=== PATIENT | female | born 1940 | race Caucasian/White ===

== ENCOUNTER 2017-02-23 15:58 | Emergency (ER) | payer OTHER, BC ==
[2017-02-23 16:05] VITALS: TEMP 97.7; BMI 20.7
[2017-02-23] MEDS ORDERED: SODIUM CHLORIDE 1,000 ML IV STA (16:36)
[2017-02-23] MEDS ORDERED: ACETAMINOPHEN 1000 MG/100 ML VIAL (NON FORMULARY) IVPB ONE (16:44)
--- NOTE | 2017-02-23 16:44 | PDOC ---
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 Today the patient was at rehab using a walker when she developed sudden generalized weakness and left sided chest pain. Her chest pain is constant, radiating to her upper back, and characterized as sharp. It is not affiliated with palpitations or shortness of breath. She endorses constant right sided headache without any visual changes, vertigo, nausea, or vomiting. The patient also reports measuring her blood pressure today at 196 systolic. Denies fevers, chills, nausea, vomiting, diarrhea, or complaints. <Fernanda Beckford - Last Filed: 02/23/17 18:33> - General History Source: Patient, Old Records Exam Limitations: No Limitations <Chandrakant Hopkins - Last Filed: 02/23/17 21:59> - General Chief Complaint: Lightheaded Stated Complaint: DIZZINESS/ LOW BP Time Seen by Provider: 02/23/17 16:08 Past History <Fernanda Beckford - Last Filed: 02/23/17 18:33> - Past Medical History CVA: Yes (brain aneurysm/ storke lt side weakness) HTN: Yes Hypercholesterolemia: Yes Thyroid Disease: Yes (hypo) - Surgical History Neurologic Surgery: Yes (aneurysm repair) - Immunization History Immunization Up to Date: Yes - Psycho/Social/Smoking Cessation Hx Anxiety: No Suicidal Ideation: No Smoking History: Never smoked Have you smoked in the past 12 months: No Information on smoking cessation initiated: No Hx Alcohol Use: No Drug/Substance Use Hx: No Substance Use Type: None Hx Substance Use Treatment: No <Chandrakant Hopkins - Last Filed: 02/23/17 21:59> - Past Medical History Allergies/Adverse Reactions: Allergies Allergy/AdvReac Type Severity Reaction Status Date / Time No Known Allergies Allergy Verified 02/23/17 15:59 Home Medications: Ambulatory Orders Levothyroxine [Synthroid -] 50 mcg PO DAILY 04/19/14 Amlodipine Besylate [Norvasc -] 7.5 mg PO DAILY 02/23/17 Cephalexin [Keflex] 500 mg PO BID #14 capsule 02/23/17 Labetalol HCl [Normodyne -] 100 mg PO TID 02/23/17 Levetiracetam [Keppra] 750 mg PO BID 02/23/17 Lisinopril [Prinivil] 20 mg PO DAILY 02/23/17 Sertraline HCl 50 mg PO DAILY 02/23/17 Review of Systems - Review of Systems Comments:: 02/23/17 17:14 GENERAL/CONSTITUTIONAL: Generalized weakness. No fever or chills. HEAD, EYES, EARS, NOSE AND THROAT: No change in vision. No ear pain or discharge. No sore throat. CARDIOVASCULAR: Chest pain. No shortness of breath. RESPIRATORY: No cough, wheezing, or hemoptysis. GASTROINTESTINAL: No nausea, vomiting, diarrhea or constipation. GENITOURINARY: No dysuria, frequency, or change in urination. MUSCULOSKELETAL: No joint or muscle swelling or pain. No neck or back pain. ENDOCRINE: No increased thirst. No abnormal weight change. SKIN: No rash NEUROLOGIC: Right sided headache. No vertigo, loss of consciousness, or change in strength/sensation. <Fernanda Beckford - Last Filed: 02/23/17 18:33> *Physical Exam - Vital Signs Last Vital Signs Temp Pulse Resp BP Pulse Ox 97.7 F 58 L 18 188/60 96 02/23/17 15:59 02/23/17 15:59 02/23/17 15:59 02/23/17 17:11 02/23/17 15:59 - Physical Exam Comments: 02/23/17 17:16 GENERAL: Awake, alert, and fully oriented, in no acute distress HEAD: No signs of trauma EYES: PERRLA, EOMI, sclera anicteric, conjunctiva clear ENT: Auricles normal inspection, hearing grossly normal, nares patent, oropharynx clear without exudates. Moist mucosa NECK: Normal ROM, supple, no lymphadenopathy, JVD, or masses LUNGS: Breath sounds equal, clear to auscultation bilaterally. No wheezes, and no crackles HEART: Regular rate and rhythm, normal S1 and S2, no murmurs, rubs or gallops ABDOMEN: Soft, nontender, normoactive bowel sounds. No guarding, no rebound. No masses EXTREMITIES: Left upper extremity and lower extremity contracture. No edema. No clubbing or cyanosis. No cords, erythema, or tenderness NEUROLOGICAL: Cranial nerves II through XII grossly intact. Normal speech, normal gait SKIN: Warm, Dry, normal turgor, no rashes or lesions noted. HEMATOLOGIC/LYMPHATIC: No anemia, easy bleeding, or history of blood clots. ALLERGIC/IMMUNOLOGIC: No hives or skin allergy. <Fernanda Beckford - Last Filed: 02/23/17 18:33> - Vital Signs Last Vital Signs Temp Pulse Resp BP Pulse Ox 97.7 F 58 L 18 195/85 96 02/23/17 15:59 02/23/17 15:59 02/23/17 15:59 02/23/17 15:59 02/23/17 15:59 <Chandrakant Hopkins - Last Filed: 02/23/17 21:59> Heart Score/ECG Review #1 ECG reviewed & interpreted by me at: 16:25 02/23/17 17:32 NSR 57, no std/claudio, normal axis, normal intervals, QTC 401 msec <Chandrakant Hopkins - Last Filed: 02/23/17 21:59> ED Treatment Course - LABORATORY CBC & Chemistry Diagram: 02/23/17 16:40 02/23/17 16:40 - RADIOLOGY Radiograph Interpretation: 02/23/17 17:19 Chest X-Ray Impression: No acute disease. Reported By: Manuelito Davis MD 02/23/17 18:[address] Impression: No evidence of acute intracranial pathology or significant change. Reported By: Manuelito Davis MD - Medications Given in the ED: ED Medications Discontinued Medications Generic Name Dose Route Start Last Admin Trade Name Talita PRN Reason Stop Dose Admin Acetaminophen 1,000 mg 02/23/17 16:44 02/23/17 17:11 Ofirmev Injection - IVPB 02/23/17 16:45 1,000 mg ONCE ONE Administration <Fernanda Beckford - Last Filed: 02/23/17 18:33> - LABORATORY CBC & Chemistry Diagram: 02/23/17 16:40 02/23/17 16:40 - RADIOLOGY Radiology Studies Ordered: Category Date Time Status HEAD CT WITHOUT CONTRAST [CT] Stat CT Scan 02/23/17 16:36 Ordered CHEST X-RAY PORTABLE* [RAD] Stat Radiology 02/23/17 16:36 Ordered <Chandrakant Hopkins - Last Filed: 02/23/17 21:59> Medical Decision Making - Medical Decision Making 02/23/17 16:40 A portion of this note was documented by scribe services under my direction. I have reviewed the details of the note, within reason, and agree with the documentation with the following case summary and management plan written by me. Patient treated in the ED. Nursing notes are reviewed and incorporated into the medical decision-making. Vital signs reviewed. Peripheral IV access obtained by the nurse, laboratory studies are drawn and sent, reviewed and interpreted by myself. Vital Signs Temp Pulse Resp BP Pulse Ox 97.7 F 58 L 18 195/85 96 02/23/17 15:59 02/23/17 15:59 02/23/17 15:59 02/23/17 15:59 02/23/17 15:59 76-year-old female with history of hypertension, hyperlipidemia, hypothyroidism , history of intracranial hemorrhage in August 2016 with residual left upper extremity and left lower extremity contracture presents with generalized weakness. The patient is at home but visits rehabilitation twice a week. Was well yesterday. Noted today that she developed a gradual reproducible left- sided chest pain. Denies shortness of breath. Denies exertional component. Pain occurred during rehab. Denies recent illnesses, fevers, chills, cough, vomiting , diarrhea. The patient reported that she felt her BP was low, but was high here. The patient is contractured with LUE with pain on palpation of left upper chest pain and movement of LUE. I suspect musculoskeletal. However, given pmh and risk factors, will obtain troponin, chest xray , head CT (for weakness), UA, labs and reassess. 02/23/17 21:44 CT head reviewed. No acute findings. CBC, BMP 02/23/17 16:40 02/23/17 16:40 CMP Sodium 136 mmol/L (136-145) 02/23/17 16:40 Potassium 4.2 mmol/L (3.5-5.1) 02/23/17 16:40 Chloride 97 mmol/L (98-107) L 02/23/17 16:40 Carbon Dioxide 28 mmol/L (21-32) 02/23/17 16:40 Anion Gap 11 (8-16) 02/23/17 16:40 BUN 18 mg/dL (7-18) D 02/23/17 16:40 Creatinine 0.7 mg/dL (0.55-1.02) 02/23/17 16:40 Creat Clearance w eGFR > 60 (>60) 02/23/17 16:40 Random Glucose 86 mg/dL (74-106) D 02/23/17 16:40 Calcium 9.3 mg/dL (8.5-10.1) 02/23/17 16:40 Total Bilirubin 0.8 mg/dL (0.2-1.0) 02/23/17 16:40 AST 15 U/L (15-37) D 02/23/17 16:40 ALT 20 U/L (12-78) D 02/23/17 16:40 Alkaline Phosphatase 65 U/L (45-117) D 02/23/17 16:40 Creatine Kinase 63 IU/L (26-192) 02/23/17 19:30 Troponin I < 0.02 ng/ml (0.00-0.05) 02/23/17 19:30 Total Protein 7.1 g/dl (6.4-8.2) 02/23/17 16:40 Albumin 4.3 g/dl (3.4-5.0) 02/23/17 16:40 Urine Test Results Urine Color Colorless 02/23/17 17:56 Urine Appearance Clear 02/23/17 17:56 Urine pH 7.0 (5.0-8.0) 02/23/17 17:56 Ur Specific [place] 1.010 (1.005-1.025) 02/23/17 17:56 Urine Protein Negative (NEGATIVE) 02/23/17 17:56 Urine Glucose (UA) Negative (NEGATIVE) 02/23/17 17:56 Urine Ketones Negative (NEGATIVE) 02/23/17 17:56 Urine Blood Negative (NEGATIVE) 02/23/17 17:56 Urine Nitrite Negative (NEGATIVE) 02/23/17 17:56 Urine Bilirubin Negative (NEGATIVE) 02/23/17 17:56 Ur Leukocyte Esterase 2+ (NEGATIVE) H 02/23/17 17:56 Urine RBC <1 /hpf (0-3) 02/23/17 17:56 Urine WBC 12 /hpf (3-5) 02/23/17 17:56 Ur Epithelial Cells Rare /hpf (FEW) 02/23/17 17:56 Urine Bacteria Rare /hpf (NONE SEEN) 02/23/17 17:56 Labs reviewed. UA positive. Will treat with abx Microbiology reviewed. keflex ordered. Pt is feeling well and at baseline. I had discussed the case with Dr. Funk regarding the chest pain. He agrees that the patient can follow up with Dr. Chance as an outpatient. Return precautions given. <Chandrakant Hopkins - Last Filed: 02/23/17 21:59> *DC/Admit/Observation/Transfer - Attestations Scribe Attestion: 02/23/17 17:18 Documentation prepared by Fernanda Beckford, acting as medical or surgical instrument maker for Chandrakant Hopkins MD. <Fernanda Beckford - Last Filed: 02/23/17 18:33> - Discharge Dispostion Admit: No <Chandrakant Hopkins - Last Filed: 02/23/17 21:59> Diagnosis at time of Disposition: UTI (urinary tract infection) Qualifiers: Urinary tract infection type: acute cystitis Hematuria presence: without hematuria Qualified Code(s): N30.00 - Acute cystitis without hematuria - Discharge Dispostion Disposition: HOME Condition at time of disposition: Stable - Prescriptions Prescriptions: Cephalexin [Keflex] 500 mg PO BID #14 capsule - Referrals Referrals: Og Diamond MD [Staff Physician] - Meng Alexander MD [Staff Physician] - Sangeeta Vaughan MD [Staff Physician] - Cleopatra Tyson MD [Staff Physician] - - Patient Instructions Printed Discharge Instructions: DI for Urinary Tract Infection (UTI), DI for Atypical Chest Pain Additional Instructions: Please follow up with your doctor. Take 650 mg tylenol every 4 hours as needed for pain/fever. Take 500 mg keflex every 12 hours for the next week for 1 week.
[2017-02-23] MEDS ORDERED: ACETAMINOPHEN INJECTION 100 ML IVPB ONE (17:32)
[2017-02-23 17:38] LABS: BASOPHIL 0.4 % (0-2.0); MCH 28.3 pg (25.7-33.7); MCHC 34.1 g/dl (32.0-36.0); MEAN CELL VOLUME 83.1 fl (80-96); MEAN PLT VOLUME 7.8 fl (7.5-11.1); NEUTROPHILS 68.5 % (42.8-82.8); PLATELET COUNT 200 K/MM3 (134-434); RDW 14.6 % (11.6-15.6); WHITE BLOOD COUNT 5.5 K/mm3 (4.0-10.0)
[2017-02-23 18:17] LABS: ALBUMIN 4.3 g/dl (3.4-5.0); ANION GAP 11 (8-16); BILIRUBIN,TOTAL 0.8 mg/dL (0.2-1.0); CALCIUM 9.3 mg/dL (8.5-10.1); CO2 28 mmol/L (21-32); COCKROFT - GAULT 67.4645; CREATININE 0.7 mg/dL (0.55-1.02); GLUCOSE,RANDOM 86 mg/dL (74-106); SGOT/AST 15 U/L (15-37); SGPT/ALT 20 U/L (12-78); TOT PROT 7.1 g/dl (6.4-8.2)
[2017-02-23 18:20] LABS: ALK PHOS 65 U/L (45-117); TROPONIN I < 0.02 ng/ml (0.00-0.05)
[2017-02-23 18:45] LABS: URINE APPEARANCE CLEAR; URINE BILIRUBIN NEGATIVE (NEGATIVE); URINE BLOOD NEGATIVE (NEGATIVE); URINE COLOR COLORLESS; URINE GLUCOSE (UA) NEGATIVE (NEGATIVE); URINE KETONE NEGATIVE (NEGATIVE); URINE NITRITE NEGATIVE (NEGATIVE); URINE PROTEIN NEGATIVE (NEGATIVE); URINE UROBILINOGEN NEGATIVE E.U./dl (0.2-1.0)
[2017-02-23 18:47] LABS: INR 1.07 (0.82-1.09); PROTHROMBIN TIME (PATIENT) 11.8 SEC (9.98-11.88)
[2017-02-23] MEDS ORDERED: LORazepam 0.5 MG TABLET PO ONE (18:47)
[2017-02-23 18:51] LABS: ACTIVATED PTT 28.2 SECONDS (26.9-34.4)
[2017-02-23] MEDS ORDERED: LORazepam 1 MG TABLET PO ONE (19:03)
[2017-02-23] MEDS ORDERED: LORazepam 0.5 MG TABLET ONE (19:16)
[2017-02-23 19:20] LABS: URINE LEUK ESTERASE 2+ (NEGATIVE)
[2017-02-23 20:31] LABS: URINE BACTERIA RARE /hpf (NONE SEEN); URINE RBC <1 /hpf (0-3); URINE WBC 12 /hpf (3-5)
[2017-02-23 21:01] LABS: TROPONIN I < 0.02 ng/ml (0.00-0.05)
[2017-02-23] MEDS ORDERED: CEPHALEXIN MONOHYDRATE 500 MG CAPSULE (UD) PO ONE (21:39)
[2017-02-23] MEDS ORDERED: CEPHALEXIN MONOHYDRATE 250 MG CAPSULE (FP) ONE (21:49)
[2017-02-23 22:02] VITALS: BP 185/73; PULSE 62
--- NOTE | 2017-02-25 22:36 | EKG ---
Test Reason : Blood Pressure : / mmHG Vent. Rate : 066 BPM Atrial Rate : 066 BPM P-R Int : 164 ms QRS Dur : 086 ms QT Int : 388 ms P-R-T Axes : 073 005 052 degrees QTc Int : 406 ms NORMAL SINUS RHYTHM SEPTAL INFARCT , AGE UNDETERMINED ABNORMAL ECG WHEN COMPARED WITH ECG OF 02-SEP-2016 19:46, PREMATURE VENTRICULAR COMPLEXES ARE NO LONGER PRESENT QT HAS SHORTENED Confirmed by DARIUS RICARDO, PILY ([id number]) on 02/25/2017 10:35:27 PM Referred By: Confirmed By:PILY MCCOY MD
--- NOTE | 2017-02-25 22:40 | EKG ---
Test Reason : Blood Pressure : / mmHG Vent. Rate : 057 BPM Atrial Rate : 057 BPM P-R Int : 168 ms QRS Dur : 082 ms QT Int : 412 ms P-R-T Axes : 052 000 054 degrees QTc Int : 401 ms SINUS BRADYCARDIA OTHERWISE NORMAL ECG WHEN COMPARED WITH ECG OF 23-FEB-2017 16:23, NO SIGNIFICANT CHANGE WAS FOUND Confirmed by PILY MCCOY MD ([id number]) on 02/25/2017 10:40:28 PM Referred By: Confirmed By:PILY MCCOY MD
== END 2017-02-23 22:01 | disposition home or self-care (01) ==
LOC: JER 15:58
PROC: 3E0337Z Introduction of Electrolytic and Water Balance Substance into Peripheral Vein, Percutaneous Approach (ICD-10-PCS; principal; 2017-02-23)
PROC: 3E033NZ Introduction of Analgesics, Hypnotics, Sedatives into Peripheral Vein, Percutaneous Approach (ICD-10-PCS; 2017-02-23)
DX: N30.00 Acute cystitis without hematuria (principal); I10 Essential (primary) hypertension; E78.00 Pure hypercholesterolemia, unspecified; E03.9 Hypothyroidism, unspecified; I69.854 Hemiplegia and hemiparesis following other cerebrovascular disease affecting left non-dominant side
CPT/HCPCS: 36415; 70450-TC; 71010-TC; 80053; 81003; 81015; 82550; 84484; 85025; 85610; 85730; 87086; 87186; 93005; 93010; 96361; 96374; 99282-25

== ENCOUNTER 2017-03-04 17:18 | Inpatient (IN) | payer OTHER, BC ==
[2017-03-04 17:42] VITALS: BMI 22.8
[2017-03-04] MEDS ORDERED: morphine CARPU-JECT 2 MG/1 ML DISP.SYRIN IVPUSH ONE ×2 (18:02→21:13)
--- NOTE | 2017-03-04 18:02 | PDOC ---
History of Present Illness - General Chief Complaint: Injury Stated Complaint: FALL Time Seen by Provider: 03/04/17 17:34 History Source: Patient Exam Limitations: No Limitations - History of Present Illness Initial Comments: 76 yo F history HTN, recent CVA with L-sided weakness (still in the recovery process- outpatient rehab) prsents with LLE/groin pain s/p fall from standing. She states that she tripped while using her walker and fell onto both legs. She has severe pain to the L leg, from the upper leg radiating to the groin. Unable to stand due to pain. Denies any other injuries. No LOC, no head injury. Past History - Past Medical History Allergies/Adverse Reactions: Allergies Allergy/AdvReac Type Severity Reaction Status Date / Time No Known Allergies Allergy Verified 03/04/17 17:22 Home Medications: Ambulatory Orders Levothyroxine [Synthroid -] 50 mcg PO DAILY 04/19/14 Amlodipine Besylate [Norvasc -] 7.5 mg PO DAILY 02/23/17 Cephalexin [Keflex] 500 mg PO BID #14 capsule 02/23/17 Labetalol HCl [Normodyne -] 100 mg PO TID 02/23/17 Levetiracetam [Keppra] 750 mg PO BID 02/23/17 Lisinopril [Prinivil] 20 mg PO DAILY 02/23/17 Sertraline HCl 50 mg PO DAILY 02/23/17 CVA: Yes (brain aneurysm/ storke lt side weakness) HTN: Yes Hypercholesterolemia: Yes Thyroid Disease: Yes (hypo) - Surgical History Neurologic Surgery: Yes (aneurysm repair) - Immunization History Immunization Up to Date: Yes - Psycho/Social/Smoking Cessation Hx Anxiety: No Suicidal Ideation: No Smoking History: Never smoked Have you smoked in the past 12 months: No Hx Alcohol Use: No Drug/Substance Use Hx: No Substance Use Type: None Hx Substance Use Treatment: No Review of Systems - Review of Systems Able to Perform ROS?: Yes Comments:: GENERAL/CONSTITUTIONAL: No fever or chills. No weakness. HEAD, EYES, EARS, NOSE AND THROAT: No change in vision. No ear pain or discharge. No sore throat. CARDIOVASCULAR: No chest pain or shortness of breath. RESPIRATORY: No cough, wheezing, or hemoptysis. GASTROINTESTINAL: No nausea, vomiting, diarrhea or constipation. GENITOURINARY: No dysuria, frequency, or change in urination. MUSCULOSKELETAL: +LLE pain. No neck or back pain. SKIN: No rash NEUROLOGIC: No headache, vertigo, loss of consciousness, or change in strength/ sensation. +L sided weakness due to recent stroke. ENDOCRINE: No increased thirst. No abnormal weight change. HEMATOLOGIC/LYMPHATIC: No anemia, easy bleeding, or history of blood clots. ALLERGIC/IMMUNOLOGIC: No hives or skin allergy. *Physical Exam - Vital Signs Last Vital Signs Temp Pulse Resp BP Pulse Ox 62 18 198/114 99 03/04/17 17:30 03/04/17 17:30 03/04/17 17:30 03/04/17 17:30 - Physical Exam Comments: GENERAL: Awake, alert, and fully oriented. Appears in obvious discomfort. HEAD: No signs of trauma EYES: PERRLA, EOMI, sclera anicteric, conjunctiva clear ENT: Auricles normal inspection, hearing grossly normal, nares patent, oropharynx clear without exudates. Moist mucosa NECK: Normal ROM, supple, no lymphadenopathy, JVD, or masses LUNGS: Breath sounds equal, clear to auscultation bilaterally. No wheezes, and no crackles HEART: Regular rate and rhythm, normal S1 and S2, no murmurs, rubs or gallops ABDOMEN: Soft, nontender, normoactive bowel sounds. No guarding, no rebound. No masses EXTREMITIES: Lying in stretcher with both knees bent. Limited motion of the LLE due to history of stroke as well as pain. No edema, no deformity. +Tenderness to mid-shaft of femur. LUE dec ROM due to history of stroke. RUE and RLE with normal range of motion, no edema. No clubbing or cyanosis. No cords, erythema. NEUROLOGICAL: Cranial nerves II through XII grossly intact. Normal speech, normal gait SKIN: Warm, Dry, normal turgor, no rashes or lesions noted. Heart Score/ECG Review - ECG Impressions Comment:: EKG read 18:06- NSR 71 bpm, no acute ST/T changes. +Motion artifact. ED Treatment Course - LABORATORY CBC & Chemistry Diagram: 03/04/17 18:00 03/04/17 18:00 Medical Decision Making - Medical Decision Making 03/04/17 18:[address] Shelby. Awaiting XR to r/o fx of femur, pelvis. She initially received 2mg morphine, stated her pain was worse. She has just received an additional 4 mg of morphine. *DC/Admit/Observation/Transfer Diagnosis at time of Disposition: Pain of left lower extremity Fall from standing Qualifiers: Encounter type: initial encounter Qualified Code(s): W19.XXXA - Unspecified fall, initial encounter
[2017-03-04] MEDS ORDERED: morphine CARPU-JECT 2 MG/1 ML DISP.SYRIN ONE ×2 (18:04→21:15)
[2017-03-04 18:16] LABS: BASOPHIL 0.5 % (0-2.0); EOSINOPHIL 0.4 % (0-4.5); MCHC 33.6 g/dl (32.0-36.0); MEAN CELL VOLUME 83.2 fl (80-96); MEAN PLT VOLUME 7.4 fl (7.5-11.1); NEUTROPHILS 81.1 % (42.8-82.8); PLATELET COUNT 167 K/MM3 (134-434); RDW 14.4 % (11.6-15.6)
[2017-03-04 18:29] LABS: INR 1.2 (0.82-1.09); PROTHROMBIN TIME (PATIENT) 13.2 SEC (9.98-11.88)
[2017-03-04] MEDS ORDERED: morphine CARPU-JECT 4 MG/1 ML DISP.SYRIN IVPUSH ONE (18:34)
[2017-03-04 18:47] LABS: ALBUMIN 4.2 g/dl (3.4-5.0); ANION GAP 9 (8-16); CALCIUM 9.1 mg/dL (8.5-10.1); CO2 28 mmol/L (21-32); CREATININE 0.5 mg/dL (0.55-1.02); GLUCOSE,RANDOM 117 mg/dL (74-106); SGOT/AST 22 U/L (15-37); SGPT/ALT 24 U/L (12-78); TOT PROT 6.5 g/dl (6.4-8.2)
[2017-03-04 18:48] LABS: ALK PHOS 70 U/L (45-117)
[2017-03-04] MEDS ORDERED: morphine CARPU-JECT 4 MG/1 ML DISP.SYRIN ONE (18:48)
--- NOTE | 2017-03-04 20:07 | PDOC ---
*Physical Exam - Vital Signs Last Vital Signs Temp Pulse Resp BP Pulse Ox 62 18 198/114 99 03/04/17 17:30 03/04/17 17:30 03/04/17 17:30 03/04/17 17:30 ED Treatment Course - LABORATORY CBC & Chemistry Diagram: 03/04/17 18:00 03/04/17 18:00 - ADDITIONAL ORDERS Additional order review: Laboratory Results 03/04/17 03/04/17 18:00 18:00 INR 1.20 H Sodium 132 L Potassium 4.4 Chloride 95 L Carbon Dioxide 28 Anion Gap 9 BUN 12 D Creatinine 0.5 L D Creat Clearance w eGFR > 60 Random Glucose 117 H D Calcium 9.1 Total Bilirubin 1.0 D AST 22 D ALT 24 Alkaline Phosphatase 70 Total Protein 6.5 Albumin 4.2 03/04/17 18:00 RBC 4.22 MCV 83.2 MCHC 33.6 RDW 14.4 MPV 7.4 L Neutrophils % 81.1 Lymphocytes % 12.2 D Monocytes % 5.8 Eosinophils % 0.4 Basophils % 0.5 - Medications Given in the ED: ED Medications Discontinued Medications Generic Name Dose Route Start Last Admin Trade Name Freq PRN Reason Stop Dose Admin Morphine Sulfate 2 mg 03/04/17 18:02 03/04/17 18:14 Morphine Injection - IVPUSH 03/04/17 18:03 2 mg ONCE ONE Administration Morphine Sulfate 4 mg 03/04/17 18:34 03/04/17 18:52 Morphine Injection - IVPUSH 03/04/17 18:35 4 mg ONCE ONE Administration Medical Decision Making - Medical Decision Making 03/04/17 20:04 Pt has a femoral neck fracture. We will call ortho to let them know. Pt is in between physicians, has not yet been to see Dr. Mariano Pathak, however I will call to see if he is willing to admit patient. Otherwise, I will admit to the hospitalist. 03/04/17 22:56 Dr. Pathak accepted the patient; Dr. Jeff is aware of the patient. Pt will be admitted to med surg. [facility] for the pain. Tiwari catheter in place. *DC/Admit/Observation/Transfer Diagnosis at time of Disposition: Leg pain, left, Displaced fracture of left femoral neck Fall from standing Qualifiers: Encounter type: initial encounter Qualified Code(s): W19.XXXA - Unspecified fall, initial encounter - Discharge Dispostion Admit: Yes
[2017-03-04] MEDS ORDERED: HYDROmorphone HCL CARPU-JECT 1 MG/1 ML DISP.SYRIN ONE (21:47)
[2017-03-04] MEDS ORDERED: HYDROmorphone HCL CARPU-JECT 2 MG/1 ML DISP.SYRIN IVPUSH ONE (21:48)
[2017-03-04 22:17] LABS: URINE APPEARANCE CLEAR; URINE BILIRUBIN NEGATIVE (NEGATIVE); URINE BLOOD NEGATIVE (NEGATIVE); URINE COLOR LTYELLOW; URINE GLUCOSE (UA) NEGATIVE (NEGATIVE); URINE KETONE NEGATIVE (NEGATIVE); URINE LEUK ESTERASE NEGATIVE (NEGATIVE); URINE NITRITE NEGATIVE (NEGATIVE); URINE PROTEIN NEGATIVE (NEGATIVE); URINE UROBILINOGEN NEGATIVE E.U./dl (0.2-1.0)
[2017-03-04] MEDS ORDERED: morphine CARPU-JECT 2 MG/1 ML DISP.SYRIN IVPUSH PRN (23:21)
[2017-03-04] MEDS ORDERED: amLODIPine BESYLATE 2.5 MG TABLET (FP) PO ONE (23:35)
[2017-03-04] MEDS ORDERED: HYDROmorphone HCL CARPU-JECT 1 MG/1 ML DISP.SYRIN IVPB PRN (23:43)
[2017-03-05] MEDS: CEFTRIAXONE 50 ML IVPB SCH ×2 (01:17→09:42)
[2017-03-05] MEDS: LABETALOL HCL 100 MG TABLET (FP) PO SCH ×4 (01:17→21:16)
[2017-03-05] MEDS: levETIRAcetam 250 MG TABLET (FP) PO SCH ×3 (01:17→21:16)
[2017-03-05] MEDS: LEVOTHYROXINE NA 50 MCG TABLET (FP) PO SCH (06:35)
[2017-03-05 07:21] LABS: CALCIUM 8.6 mg/dL (8.5-10.1); COCKROFT - GAULT 78.2595; CREATININE 0.5 mg/dL (0.55-1.02); MCHC 35.2 g/dl (32.0-36.0); MEAN CELL VOLUME 82.2 fl (80-96); MEAN PLT VOLUME 7.4 fl (7.5-11.1); PLATELET COUNT 158 K/MM3 (134-434); RDW 14.1 % (11.6-15.6); WHITE BLOOD COUNT 5.8 K/mm3 (4.0-10.0)
[2017-03-05] MEDS: SERTRALINE HCL 50 MG TABLET (FP) PO SCH (09:42)
[2017-03-05] MEDS: amLODIPine BESYLATE 2.5 MG TABLET (FP) PO SCH (09:42)
--- NOTE | 2017-03-05 09:50 | CON.ORTH ---
Consult Reason for Consultation:: left hip fx - Past Medical History Cardio/Vascular: Yes: HTN, Hyperlipdemia. No: AFIB, CAD, CHF Endocrine: Yes: Hypothyroidism. No: Diabetes Mellitus - Alcohol/Substance Use Hx Alcohol Use: No - Smoking History Smoking history: Never smoked Have you smoked in the past 12 months: No Home Medications - Allergies Allergies/Adverse Reactions: Allergies Allergy/AdvReac Type Severity Reaction Status Date / Time No Known Allergies Allergy Verified 03/04/17 17:22 - Home Medications Home Medications: Ambulatory Orders Levothyroxine [Synthroid -] 50 mcg PO DAILY 04/19/14 Amlodipine Besylate [Norvasc -] 5 mg PO DAILY 02/23/17 Labetalol HCl [Normodyne -] 100 mg PO TID MDD 400 02/23/17 Levetiracetam [Keppra] 750 mg PO HS 02/23/17 Lisinopril [Prinivil] 20 mg PO DAILY 02/23/17 Sertraline HCl 50 mg PO DAILY 02/23/17 Physical Exam for Ortho Vital Signs: Vital Signs Temperature 98.1 F 03/05/17 08:04 Pulse Rate 57 L 03/05/17 08:04 Respiratory Rate 18 03/05/17 08:04 Blood Pressure 156/59 03/05/17 08:04 O2 Sat by Pulse Oximetry (%) 99 03/04/17 22:30 Labs: CBC, BMP 03/05/17 06:20 03/05/17 06:20 INR, PTT INR 1.20 (0.82-1.09) H 03/04/17 18:00 - Lower Extremity Hip: Yes: Left, Decreased ROM, Leg Externally Rotated, Leg Shortened, Pain, Swelling, Other (nvi) Imaging - Results X-ray: Report Reviewed, Image Reviewed Assessment/Plan 76 yo F history HTN, recent CVA with L-sided weakness (still in the recovery process- outpatient rehab) prsents with LLE/groin pain s/p fall from standing. She states that she tripped while using her walker and fell onto both legs. She has severe pain to the L leg, from the upper leg radiating to the groin. Unable to stand due to pain. Denies any other injuries. No LOC, no head injury. a/p- left displaced femoral neck fx Risks and benefits were d/w patient in detail OR for left hip jamari surgical clearance npo after midnight OR tentatively for tomorrow afternoon pending clearance d/w Dr. Jeff
[2017-03-05] MEDS ORDERED: amLODIPine BESYLATE 2.5 MG TABLET (FP) PO SCH (10:00)
--- NOTE | 2017-03-05 11:44 | EKG ---
Test Reason : Blood Pressure : / mmHG Vent. Rate : 071 BPM Atrial Rate : 071 BPM P-R Int : 170 ms QRS Dur : 082 ms QT Int : 368 ms P-R-T Axes : 047 017 075 degrees QTc Int : 399 ms NORMAL SINUS RHYTHM NORMAL ECG WHEN COMPARED WITH ECG OF 23-FEB-2017 17:22, NO SIGNIFICANT CHANGE WAS FOUND Confirmed by CONI PARKER MD ([id number]) on 03/05/2017 11:44:16 AM Referred By: Confirmed By:CONI PARKER MD
[2017-03-05] MEDS: HYDROmorphone HCL CARPU-JECT 1 MG/1 ML DISP.SYRIN IVPB PRN ×3 (12:04→20:51)
--- NOTE | 2017-03-05 13:03 | CON.CARD ---
Consult Consult Specialty:: Cardiology Referred by:: Orthopedics Reason for Consultation:: Pre-operative cardiovascular evaluation - History of Present Illness Chief Complaint: s/p fall and left hip pain History of Present Illness: 76 yo F history HTN, h/o hemorrhagic CVA with L-sided weakness 2016 (still in the recovery process- outpatient rehab), previous cerebral aneurysm ICH post- craniotomy, HTN, chol, hypothyroidism, anxiety d/o persented with LLE/groin pain s/p fall from standing. She states that she tripped while using her walker and fell onto both legs. She has severe pain to the L leg, from the upper leg radiating to the groin. Unable to stand due to pain. Denies any other injuries. No LOC, no head injury, near or true syncope, palpitations, orthopnea, PND or LE edema. - History Source History Provided By: Patient Limitations to Obtaining History: No Limitations - Past Medical History Cardio/Vascular: Yes: HTN, Hyperlipdemia. No: AFIB, CAD, CHF Endocrine: Yes: Hypothyroidism. No: Diabetes Mellitus - Alcohol/Substance Use Hx Alcohol Use: No - Smoking History Smoking history: Never smoked Have you smoked in the past 12 months: No Home Medications - Allergies Allergies/Adverse Reactions: Allergies Allergy/AdvReac Type Severity Reaction Status Date / Time No Known Allergies Allergy Verified 03/04/17 17:22 - Home Medications Home Medications: Ambulatory Orders Levothyroxine [Synthroid -] 50 mcg PO DAILY 04/19/14 Amlodipine Besylate [Norvasc -] 5 mg PO DAILY 02/23/17 Labetalol HCl [Normodyne -] 100 mg PO TID MDD 400 02/23/17 Levetiracetam [Keppra] 750 mg PO HS 02/23/17 Lisinopril [Prinivil] 20 mg PO DAILY 02/23/17 Sertraline HCl 50 mg PO DAILY 02/23/17 Review of Systems - Review of Systems Musculoskeletal: reports: Joint Pain (Left hip) Vital Signs: Vital Signs Temperature 98.1 F 03/05/17 08:04 Pulse Rate 57 L 03/05/17 08:04 Respiratory Rate 18 03/05/17 08:04 Blood Pressure 156/59 03/05/17 08:04 O2 Sat by Pulse Oximetry (%) 99 03/04/17 22:30 Constitutional: Yes: No Distress, Calm Neck: Yes: Supple Respiratory: Yes: Regular, CTA Bilaterally Gastrointestinal: Yes: Normal Bowel Sounds, Soft Cardiovascular: Yes: Regular Rate and Rhythm JVD: No Carotid Bruit: No Heart Sounds: Yes: S1, S2 Extremities: Yes: External Rotation, Shortened Edema: No - Other Data Labs, Other Data: CBC, BMP 03/05/17 06:20 03/05/17 06:20 INR, PTT INR 1.20 (0.82-1.09) H 03/04/17 18:00 NSR @ 71 similar to previous 02/27/2017 Ejection Fraction %: LVEF > or = 40 % Problem List - Problems (1) Displaced fracture of left femoral neck Code(s): S72.002A - FRACTURE OF UNSP PART OF NECK OF LEFT FEMUR, INIT (2) Fall from standing Code(s): W19.XXXA - UNSPECIFIED FALL, INITIAL ENCOUNTER Qualifiers: Encounter type: initial encounter Qualified Code(s): W19.XXXA - Unspecified fall, initial encounter (3) Cerebrovascular accident (CVA) Code(s): I63.9 - CEREBRAL INFARCTION, UNSPECIFIED Qualifiers: CVA mechanism: unspecified Qualified Code(s): I63.9 - Cerebral infarction, unspecified (4) HLD (hyperlipidemia) Code(s): E78.5 - HYPERLIPIDEMIA, UNSPECIFIED Qualifiers: Hyperlipidemia type: pure hypercholesterolemia Qualified Code(s): E78.00 - Pure hypercholesterolemia, unspecified; E78.0 - Pure hypercholesterolemia (5) History of intracranial hemorrhage Code(s): Z86.79 - PERSONAL HISTORY OF OTHER DISEASES OF THE CIRCULATORY SYSTEM (6) Hypothyroid Code(s): E03.9 - HYPOTHYROIDISM, UNSPECIFIED Qualifiers: Hypothyroidism type: unspecified Qualified Code(s): E03.9 - Hypothyroidism, unspecified (7) Labile hypertension Code(s): I10 - ESSENTIAL (PRIMARY) HYPERTENSION (8) Pre-operative cardiovascular examination Code(s): Z01.810 - ENCOUNTER FOR PREPROCEDURAL CARDIOVASCULAR EXAMINATION (9) Seizure disorder Code(s): G40.909 - EPILEPSY, UNSP, NOT INTRACTABLE, WITHOUT STATUS EPILEPTICUS Assessment/Plan 02/15/2017 Echo: Normal LV and RV size and fxn, borderline LAR, mild MR, TR 1. Pre-operative cardiovascular evaluation left hip hemiarthroplasty for left displaced femoral neck fx 2. 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 Atypical chest pain 4. Hyperlipidemia 5. H/o ICH, hemorrhagic stroke with residual left sided deficits 6. Hypothyroidism P:1. Given absence of sxs of acute coronary syndrome, decompensated CHF or malignant arrhythmia, there are no absolute CV contraindications against proceeding with orthopedic procedure 2. Continue Labetolol 200 qAM, 100 qPM and qhs, Crestor 10 qd, lisinopril 20 qd , Norvasc 5 qd 3. DVT prophylaxis with mechanical compression stockings 4. Thank you for consultative opportunity
[2017-03-05] MEDS: LISINOPRIL 20 MG TABLET (FP) PO SCH (13:41)
--- NOTE | 2017-03-05 19:33 | HP ---
Admitting History and Physical - Primary Care Physician PCP: Mariano Pathak - Admission Chief Complaint: Fall. Hip pain History of Present Illness: Pt with hemorrhagic CVA and left side weakness, using a walker, has in her house last night when tried to walk and fell; she developed left hip ppain; in ER she was noticed to have left hip fracture. - Past Medical History [employer] SHIFT: Yes: Other (Cerebral aneurysm, s/p surgery. 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.) Cardiovascular: Yes: HTN, Hyperlipdemia Endocrine: Yes: Hypothyroidism - Smoking History Smoking history: Never smoked Have you smoked in the past 12 months: No - Alcohol/Substance Use Hx Alcohol Use: No Home Medications - Allergies Allergies/Adverse Reactions: Allergies Allergy/AdvReac Type Severity Reaction Status Date / Time No Known Allergies Allergy Verified 03/04/17 17:22 - Home Medications Home Medications: Ambulatory Orders Levothyroxine [Synthroid -] 50 mcg PO DAILY 04/19/14 Amlodipine Besylate [Norvasc -] 5 mg PO DAILY 02/23/17 Labetalol HCl [Normodyne -] 100 mg PO TID MDD 400 02/23/17 Levetiracetam [Keppra] 750 mg PO HS 02/23/17 Lisinopril [Prinivil] 20 mg PO DAILY 02/23/17 Sertraline HCl 50 mg PO DAILY 02/23/17 Review of Systems - Review of Systems Constitutional: denies: Chills, Fever, Night Sweats Eyes: denies: Blind Spots, Blurred Vision, Double Vision HENT: denies: Difficult Swallowing, Ear Discharge, Ear Pain, Throat Pain Neck: denies: Pain on Movement, Tenderness Cardiovascular: denies: Chest Pain, Edema, Palpitations, Shortness of Breath Respiratory: denies: Cough, Wheezing Gastrointestinal: denies: Abdominal Pain, Diarrhea, Nausea Genitourinary: denies: Burning, Discharge, Dysuria Musculoskeletal: denies: Back Pain, Joint Pain, Joint Swelling Neurological: denies: Change in Speech, Confusion, Headache Endocrine: denies: Excessive Sweating, Intolerance to Cold Hematology/Lymphatic: denies: Easily Bruised, Excessive Bleeding Psychiatric: denies: Anxiety, Depression Physical Examination Vital Signs: Vital Signs Temperature 98.1 F 03/05/17 18:00 Pulse Rate 65 03/05/17 18:00 Respiratory Rate 18 06/05/17 18:00 Blood Pressure 123/49 03/05/17 18:00 O2 Sat by Pulse Oximetry (%) 98 03/05/17 09:00 Constitutional: Yes: Calm, Mild Distress (secondary to pain) Eyes: Yes: Conjunctiva Clear, EOM Intact, PERRL HENT: Yes: Atraumatic, Normocephalic. No: Pharyngeal Erythema Neck: Yes: Trachea Midline. No: Lymphadenopathy Cardiovascular: Yes: Regular Rate and Rhythm, S1, S2 Respiratory: Yes: Regular, CTA Bilaterally. No: Rales Gastrointestinal: Yes: Normal Bowel Sounds, Soft. No: Palpable Mass, Tenderness ...Rectal Exam: Yes: Deferred Renal/: No: CVA Tenderness - Left, CVA Tenderness - Right Breast(s): Yes: Other (deferred) Extremities: Yes: Other (left leg with external rotation). No: Cold, Cool Edema: No Integumentary: No: Bruising, Jaundice Neurological: Yes: Alert, Oriented Labs: CBC, BMP 03/05/17 06:20 03/05/17 06:20 Imaging - Results Chest X-ray: Pending Problem List - Problems (1) Fall from standing Code(s): W19.XXXA - UNSPECIFIED FALL, INITIAL ENCOUNTER Qualifiers: Encounter type: initial encounter Qualified Code(s): W19.XXXA - Unspecified fall, initial encounter (2) Displaced fracture of left femoral neck Code(s): S72.002A - FRACTURE OF UNSP PART OF NECK OF LEFT FEMUR, INIT (3) Cerebrovascular accident (CVA) Code(s): I63.9 - CEREBRAL INFARCTION, UNSPECIFIED Qualifiers: CVA mechanism: unspecified Qualified Code(s): I63.9 - Cerebral infarction, unspecified (4) History of intracranial hemorrhage Code(s): Z86.79 - PERSONAL HISTORY OF OTHER DISEASES OF THE CIRCULATORY SYSTEM (5) History of surgery for cerebral aneurysm Code(s): Z98.890 - OTHER SPECIFIED POSTPROCEDURAL STATES (6) Hypothyroid Code(s): E03.9 - HYPOTHYROIDISM, UNSPECIFIED Qualifiers: Hypothyroidism type: unspecified Qualified Code(s): E03.9 - Hypothyroidism, unspecified Assessment/Plan \ Ortho consult. Cardio Consult for clearance. Neuro consult. To review her medications- initial ER list seemed not to be accurate. DVT prophylaxis. Pain control.
--- NOTE | 2017-03-05 19:48 | CON.NEURO ---
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 She states that she tripped while using her walker and fell onto both legs. She has severe pain to the L leg, from the upper leg radiating to the groin. Unable to stand due to pain. Denies any other injuries. No LOC, no head injury. XRAY shows left femoral neck fracture. seen by ortho planning for left hip hemiarthoplasty . no new neurological issues. 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.) Cardio/Vascular: Yes: HTN, Hyperlipdemia Endocrine: Yes: Hypothyroidism - Alcohol/Substance Use Hx Alcohol Use: No - Smoking History Smoking history: Never smoked Have you smoked in the past 12 months: No Home Medications - Allergies Allergies/Adverse Reactions: Allergies Allergy/AdvReac Type Severity Reaction Status Date / Time No Known Allergies Allergy Verified 03/04/17 17:22 - Home Medications Home Medications: Ambulatory Orders Levothyroxine [Synthroid -] 50 mcg PO DAILY 04/19/14 Amlodipine Besylate [Norvasc -] 5 mg PO DAILY 02/23/17 Labetalol HCl [Normodyne -] 100 mg PO TID MDD 400 02/23/17 Levetiracetam [Keppra] 750 mg PO HS 02/23/17 Lisinopril [Prinivil] 20 mg PO DAILY 02/23/17 Sertraline HCl 50 mg PO DAILY 02/23/17 Physical Exam-Neuro Vital Signs: Vital Signs Temperature 98.1 F 03/05/17 18:00 Pulse Rate 65 03/05/17 18:00 Respiratory Rate 18 03/05/17 18:00 Blood Pressure 123/49 03/05/17 18:00 O2 Sat by Pulse Oximetry (%) 98 03/05/17 09:00 Constitutional: Yes: Well Nourished Neck: Yes: WNL Cardiovascular: Yes: Regular Rate and Rhythm Respiratory: Yes: CTA Bilaterally Labs: CBC, BMP 03/05/17 06:20 03/05/17 06:20 INR, PTT INR 1.20 (0.82-1.09) H 03/04/17 18:00 - Neuro Exam Level Of Consciousness: Yes: Alert, Oriented to Person (EOMI, no aphasia, dysrthria, spastic left heimplegia , brisk L >R, left leg flexed (pain); gait not tested) NIH Stroke Scale - Total Score NIH Stroke Scale Score: 0 Assessment/Plan HX of Hemorrhagic CVA (s/p craniotomy, no residual bleed on recent CT , ), with residual left spastic hemiplegia, likely prior hypertensive bleed; S/p oupt rehb /botox LUE, now with fall and left femoral neck fracture -- requires ortho surgery. please get carotid Doppler prior to surgery to ensure no sig carotid pathology-- otherwise if no sig stenosis cleared for the proposed surgery. maintain keppra for now and will assess hospice entrance attendant need after surgery. Ok to use post -op AC for DVT prophylaxis if needed. Dr Sharma [phone]
[2017-03-05] MEDS ORDERED: SODIUM CHLORIDE 1,000 ML IV SCH (20:30)
[2017-03-06] MEDS: HYDROmorphone HCL CARPU-JECT 1 MG/1 ML DISP.SYRIN IVPB PRN ×2 (02:16→06:22)
[2017-03-06] MEDS: LABETALOL HCL 100 MG TABLET (FP) PO SCH ×3 (06:15→21:22)
[2017-03-06] MEDS: LEVOTHYROXINE NA 50 MCG TABLET (FP) PO SCH (06:15)
[2017-03-06 08:50] LABS: MCH 28.7 pg (25.7-33.7); MCHC 34.1 g/dl (32.0-36.0); MEAN CELL VOLUME 84.4 fl (80-96); MEAN PLT VOLUME 7.2 fl (7.5-11.1); PLATELET COUNT 164 K/MM3 (134-434); RDW 13.9 % (11.6-15.6); WHITE BLOOD COUNT 5.8 K/mm3 (4.0-10.0)
[2017-03-06 09:15] LABS: CALCIUM 8.9 mg/dL (8.5-10.1); COCKROFT - GAULT 65.2205; CREATININE 0.6 mg/dL (0.55-1.02)
[2017-03-06] MEDS ORDERED: LABETALOL HCL 100 MG TABLET (FP) PO SCH (10:00)
[2017-03-06] MEDS: levETIRAcetam 250 MG TABLET (FP) PO SCH ×2 (10:07→21:22)
[2017-03-06] MEDS: SERTRALINE HCL 50 MG TABLET (FP) PO SCH (10:07)
[2017-03-06] MEDS: amLODIPine BESYLATE 2.5 MG TABLET (FP) PO SCH (10:07)
[2017-03-06] MEDS: LISINOPRIL 20 MG TABLET (FP) PO SCH (10:07)
[2017-03-06] MEDS: CEFTRIAXONE 50 ML IVPB SCH (10:08)
[2017-03-06] MEDS ORDERED: SODIUM CHLORIDE 1,000 ML IV SCH ×2 (10:53→16:41)
--- NOTE | 2017-03-06 10:57 | PN ---
Progress Note, Physician History of Present Illness: Pt. w/ CP, palp, SOB, N, V, abd pain. Pt.'s pain is better controlled. - Current Medication List Current Medications: Active Medications Amlodipine Besylate (Norvasc -) 2.5 mg PO DAILY [facility] Last Admin: 03/06/17 10:07 Dose: 2.5 mg Hydromorphone HCl (Dilaudid Injection -) 2 mg IVPB Q4H PRN PRN Reason: PAIN Last Admin: 03/06/17 06:22 Dose: 2 mg Ceftriaxone Sodium (Rocephin 1gm Ivpb (Pre-Docked)) 50 mls @ 100 mls/hr IVPB DAILY [facility] Last Admin: 03/06/17 10:08 Dose: 100 mls/hr Labetalol HCl (Normodyne -) 100 mg PO TID [facility] Last Admin: 03/06/17 06:15 Dose: 100 mg Labetalol HCl (Normodyne -) 100 mg PO DAILY [facility] Last Admin: 03/06/17 10:08 Dose: 100 mg Levetiracetam (Keppra -) 750 mg PO BID [facility] Last Admin: 03/06/17 10:07 Dose: 750 mg Levothyroxine Sodium (Synthroid -) 50 mcg PO DAILY@0700 [facility] Last Admin: 03/06/17 06:15 Dose: 50 mcg Lisinopril (Prinivil) 20 mg PO DAILY [facility] Last Admin: 03/06/17 10:07 Dose: 20 mg Sertraline HCl (Zoloft -) 50 mg PO DAILY [facility] Last Admin: 03/06/17 10:07 Dose: 50 mg - Objective Vital Signs: Vital Signs Temperature 98.2 F 03/06/17 06:00 Pulse Rate 69 03/06/17 06:00 Respiratory Rate 18 03/05/17 18:00 Blood Pressure 133/48 03/06/17 06:00 O2 Sat by Pulse Oximetry (%) 98 03/05/17 09:00 Constitutional: Yes: No Distress, Calm Cardiovascular: Yes: Regular Rate and Rhythm, S1, S2 Respiratory: Yes: Regular, CTA Bilaterally. No: Rales Gastrointestinal: Yes: Normal Bowel Sounds, Soft. No: Palpable Mass, Tenderness Edema: No Neurological: Yes: Alert, Oriented Labs: CBC, BMP 03/06/17 08:31 03/06/17 08:31 INR, PTT INR 1.20 (0.82-1.09) H 03/04/17 18:00 Problem List - Problems (1) Fall from standing Code(s): W19.XXXA - UNSPECIFIED FALL, INITIAL ENCOUNTER Qualifiers: Encounter type: initial encounter Qualified Code(s): W19.XXXA - Unspecified fall, initial encounter (2) Displaced fracture of left femoral neck Code(s): S72.002A - FRACTURE OF UNSP PART OF NECK OF LEFT FEMUR, INIT (3) Cerebrovascular accident (CVA) Code(s): I63.9 - CEREBRAL INFARCTION, UNSPECIFIED Qualifiers: CVA mechanism: unspecified Qualified Code(s): I63.9 - Cerebral infarction, unspecified (4) History of intracranial hemorrhage Code(s): Z86.79 - PERSONAL HISTORY OF OTHER DISEASES OF THE CIRCULATORY SYSTEM (5) History of surgery for cerebral aneurysm Code(s): Z98.890 - OTHER SPECIFIED POSTPROCEDURAL STATES (6) Hypothyroid Code(s): E03.9 - HYPOTHYROIDISM, UNSPECIFIED Qualifiers: Hypothyroidism type: unspecified Qualified Code(s): E03.9 - Hypothyroidism, unspecified (7) Hyponatremia Assessment/Plan: could be secondary to pain; stable, to monitor Code(s): E87.1 - HYPO-OSMOLALITY AND HYPONATREMIA Assessment/Plan Ortho consult appreciated. Cardio consult for clearance appreciated. Neuro consult appreciated. DVT prophylaxis. Pain control. NPO for now. Restart PO intake as tolerated postop. Incentive spirometry. IVF Medically cleared for surgery
--- NOTE | 2017-03-06 10:59 | EKG ---
Test Reason : Blood Pressure : / mmHG Vent. Rate : 066 BPM Atrial Rate : 066 BPM P-R Int : 164 ms QRS Dur : 086 ms QT Int : 390 ms P-R-T Axes : 077 031 067 degrees QTc Int : 408 ms NORMAL SINUS RHYTHM NORMAL ECG WHEN COMPARED WITH ECG OF 04-MAR-2017 17:54, NO SIGNIFICANT CHANGE WAS FOUND Confirmed by RODRI RICARDO, GINNY ([id number]) on 03/06/2017 10:59:10 AM Referred By: Oscar HCAU Confirmed By:GINNY MACE MD
--- NOTE | 2017-03-06 12:03 | PN ---
Progress Note, Physician Chief Complaint: Events noted Await hip surger History of Present Illness: Patient was seen and examined. Awake and alert. Chart was reviewed Denies chest pain, SOB or palpitations Complains of back pain - Current Medication List Current Medications: Active Medications Amlodipine Besylate (Norvasc -) 2.5 mg PO DAILY [facility] Last Admin: 03/06/17 10:07 Dose: 2.5 mg Hydromorphone HCl (Dilaudid Injection -) 2 mg IVPB Q4H PRN PRN Reason: PAIN Last Admin: 03/06/17 06:22 Dose: 2 mg Ceftriaxone Sodium (Rocephin 1gm Ivpb (Pre-Docked)) 50 mls @ 100 mls/hr IVPB DAILY [facility] Last Admin: 03/06/17 10:08 Dose: 100 mls/hr Sodium Chloride (Normal Saline -) 1,000 mls @ 100 mls/hr IV ASDIR [facility] Labetalol HCl (Normodyne -) 100 mg PO TID [facility] Last Admin: 03/06/17 06:15 Dose: 100 mg Labetalol HCl (Normodyne -) 100 mg PO DAILY [facility] Last Admin: 03/06/17 10:08 Dose: 100 mg Levetiracetam (Keppra -) 750 mg PO BID [facility] Last Admin: 03/06/17 10:07 Dose: 750 mg Levothyroxine Sodium (Synthroid -) 50 mcg PO DAILY@0700 [facility] Last Admin: 03/06/17 06:15 Dose: 50 mcg Lisinopril (Prinivil) 20 mg PO DAILY [facility] Last Admin: 03/06/17 10:07 Dose: 20 mg Sertraline HCl (Zoloft -) 50 mg PO DAILY [facility] Last Admin: 03/06/17 10:07 Dose: 50 mg - Objective Vital Signs: Vital Signs Temperature 98.2 F 03/06/17 06:00 Pulse Rate 69 03/06/17 06:00 Respiratory Rate 18 03/05/17 18:00 Blood Pressure 133/48 03/06/17 06:00 O2 Sat by Pulse Oximetry (%) 98 03/05/17 09:00 HENT: Yes: Atraumatic Neck: Yes: Supple Cardiovascular: Yes: Regular Rate and Rhythm, S1, S2. No: Murmur Respiratory: Yes: Diminished Gastrointestinal: Yes: Normal Bowel Sounds, Soft. No: Tenderness Edema: No Labs: CBC, BMP 03/06/17 08:31 03/06/17 08:31 INR, PTT INR 1.20 (0.82-1.09) H 03/04/17 18:00 Problem List - Problems (1) Displaced fracture of left femoral neck Code(s): S72.002A - FRACTURE OF UNSP PART OF NECK OF LEFT FEMUR, INIT (2) Pre-operative cardiovascular examination Code(s): Z01.810 - ENCOUNTER FOR PREPROCEDURAL CARDIOVASCULAR EXAMINATION (3) Cerebrovascular accident (CVA) Code(s): I63.9 - CEREBRAL INFARCTION, UNSPECIFIED Qualifiers: CVA mechanism: unspecified Qualified Code(s): I63.9 - Cerebral infarction, unspecified (4) HLD (hyperlipidemia) Code(s): E78.5 - HYPERLIPIDEMIA, UNSPECIFIED Qualifiers: Hyperlipidemia type: pure hypercholesterolemia Qualified Code(s): E78.00 - Pure hypercholesterolemia, unspecified; E78.0 - Pure hypercholesterolemia (5) Hypertensive urgency, malignant Code(s): I10 - ESSENTIAL (PRIMARY) HYPERTENSION Assessment/Plan 1. Pre-operative cardiovascular evaluation left hip hemiarthroplasty for left displaced femoral neck fracture 2. 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 Atypical chest pain 4. Hyperlipidemia 5. History of ICH, hemorrhagic stroke with residual left sided deficits 6. Hypothyroidism PLAN: 1. Given absence of symptoms of acute coronary syndrome, decompensated CHF or malignant arrhythmia, there are no absolute contraindications in proceeding with orthopedic procedure 2. Continue Labetolol, Crestor, Lisinopril 20 and Norvasc 3. DVT prophylaxis with mechanical compression stockings Further plans are to follow Enoch Shen MD
[2017-03-06] MEDS ORDERED: ceFAZolin SODIUM 1 GM VIAL ONE ×3 (13:13→13:53)
[2017-03-06] MEDS ORDERED: PROPOFOL 20 ML ONE (13:13)
[2017-03-06] MEDS ORDERED: MIDAZOLAM HCL 2 MG/2 ML SINGLE DOSE VIAL ONE (13:13)
[2017-03-06] MEDS ORDERED: ceFAZolin SODIUM 1 GM VIAL IVPB ONE (14:57)
--- NOTE | 2017-03-06 16:21 | OP ---
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
[2017-03-06] MEDS ORDERED: ONDANSETRON 4 MG/2 ML VIAL IVPUSH PRN (16:27)
[2017-03-06] MEDS ORDERED: PROMETHAZINE HCL 25 MG/1 ML VIAL IVPUSH PRN (16:27)
[2017-03-06] MEDS ORDERED: LACTATED RINGERS SOLUTION 1,000 ML IV SCH (16:30)
[2017-03-06] MEDS: HYDROmorphone HCL CARPU-JECT 2 MG/1 ML DISP.SYRIN IVPB PRN (20:00)
[2017-03-06] MEDS ORDERED: ALPRAZolam 0.25 MG TABLET PO ONE (20:45)
[2017-03-06] MEDS: SODIUM CHLORIDE 1,000 ML IV SCH (20:53)
[2017-03-06] MEDS: CEFAZOLIN (PRE-DOCKED) 50 ML IVPB SCH (22:49)
[2017-03-06] MEDS ORDERED: CEFAZOLIN (PRE-DOCKED) 50 ML IVPB SCH (23:00)
[2017-03-07] MEDS: HYDROmorphone HCL CARPU-JECT 2 MG/1 ML DISP.SYRIN IVPB PRN ×2 (02:42→10:17)
[2017-03-07] MEDS: LABETALOL HCL 100 MG TABLET (FP) PO SCH ×4 (06:07→21:21)
[2017-03-07] MEDS: CEFAZOLIN (PRE-DOCKED) 50 ML IVPB SCH (06:07)
[2017-03-07] MEDS: LEVOTHYROXINE NA 50 MCG TABLET (FP) PO SCH (06:07)
[2017-03-07 07:24] LABS: MCH 28.9 pg (25.7-33.7); MCHC 34.6 g/dl (32.0-36.0); MEAN CELL VOLUME 83.7 fl (80-96); MEAN PLT VOLUME 7.9 fl (7.5-11.1); PLATELET COUNT 143 K/MM3 (134-434); RDW 13.9 % (11.6-15.6); WHITE BLOOD COUNT 9.2 K/mm3 (4.0-10.0)
[2017-03-07 07:35] LABS: ALBUMIN 2.6 g/dl (3.4-5.0); ANION GAP 10 (8-16); CALCIUM 8.3 mg/dL (8.5-10.1); CO2 25 mmol/L (21-32); GLUCOSE,RANDOM 181 mg/dL (74-106); SGOT/AST 50 U/L (15-37); SGPT/ALT 30 U/L (12-78)
[2017-03-07 07:37] LABS: ALK PHOS 111 U/L (45-117); BILIRUBIN,TOTAL 0.7 mg/dL (0.2-1.0); COCKROFT - GAULT 55.9045; CREATININE 0.7 mg/dL (0.55-1.02); TOT PROT 4.7 g/dl (6.4-8.2)
--- NOTE | 2017-03-07 08:50 | PN ---
Progress Note (short form) - Note Progress Note: Anesthesia POD#! S/P Left Hemiarthroplasty under spinal anesthesia Alert oriented,Some nausea yesterday,no more now. mild pain is present. VSS A/P Doing well after the procedure. Maryann Childress MD.
[2017-03-07] MEDS: ENOXAPARIN NA (PORCINE) 40 MG/0.4 ML DISP.SYRIN SQ SCH (09:11)
[2017-03-07] MEDS: levETIRAcetam 250 MG TABLET (FP) PO SCH ×2 (09:11→21:21)
[2017-03-07] MEDS: LISINOPRIL 20 MG TABLET (FP) PO SCH (09:11)
[2017-03-07] MEDS: SERTRALINE HCL 50 MG TABLET (FP) PO SCH (09:11)
[2017-03-07] MEDS ORDERED: amLODIPine BESYLATE 2.5 MG TABLET (FP) PO SCH (10:00)
[2017-03-07] MEDS ORDERED: CEFTRIAXONE 50 ML IVPB SCH (10:00)
[2017-03-07] MEDS ORDERED: ENOXAPARIN NA (PORCINE) 40 MG/0.4 ML DISP.SYRIN SQ SCH (10:00)
[2017-03-07] MEDS ORDERED: ALPRAZolam 0.25 MG TABLET PO PRN (10:13)
--- NOTE | 2017-03-07 13:07 | PN ---
Progress Note (short form) - Note Progress Note: Ortho Pt seen and examined s/p left hip jamari pod #1 Selected Entries 03/07/17 10:00 Temperature 98.3 F Pulse Rate 74 Respiratory 18 Rate Blood Pressure 112/48 Laboratory Tests 03/07/17 06:20 WBC 9.2 D Hgb 9.1 L D Hct 26.3 L D Plt Count 143 dressing c/d/i, calf soft ,nt a/p PT if able hip precautions dvt ppx pain control d/c planning
--- NOTE | 2017-03-07 13:17 | PN ---
Progress Note, Physician History of Present Illness: Resting comfortably POD#1 left hip hemiarthroplasty. - Current Medication List Current Medications: Active Medications Alprazolam (Xanax -) 0.25 mg PO BID PRN PRN Reason: ANXIETY Amlodipine Besylate (Norvasc -) 2.5 mg PO DAILY [facility] Last Admin: 03/07/17 09:11 Dose: 2.5 mg Enoxaparin Sodium (Lovenox -) 40 mg SQ DAILY [facility] Last Admin: 03/07/17 09:11 Dose: 40 mg Hydromorphone HCl (Dilaudid Injection -) 2 mg IVPB Q4H PRN PRN Reason: PAIN Last Admin: 03/07/17 10:17 Dose: 2 mg Ceftriaxone Sodium (Rocephin 1gm Ivpb (Pre-Docked)) 50 mls @ 100 mls/hr IVPB DAILY [facility] Last Admin: 03/07/17 09:12 Dose: 100 mls/hr Sodium Chloride (Normal Saline -) 1,000 mls @ 50 mls/hr IV ASDIR [facility] Last Admin: 03/06/17 20:53 Dose: 50 mls/hr Labetalol HCl (Normodyne -) 100 mg PO TID [facility] Last Admin: 03/07/17 06:07 Dose: 100 mg Labetalol HCl (Normodyne -) 100 mg PO DAILY@06 [facility] Last Admin: 03/07/17 06:07 Dose: 100 mg Levetiracetam (Keppra -) 750 mg PO BID [facility] Last Admin: 03/07/17 09:11 Dose: 750 mg Levothyroxine Sodium (Synthroid -) 50 mcg PO DAILY@0700 [facility] Last Admin: 03/07/17 06:07 Dose: 50 mcg Lisinopril (Prinivil) 20 mg PO DAILY [facility] Last Admin: 03/07/17 09:11 Dose: 20 mg Sertraline HCl (Zoloft -) 50 mg PO DAILY [facility] Last Admin: 03/07/17 09:11 Dose: 50 mg - Objective Vital Signs: Vital Signs Temperature 98.3 F 03/07/17 10:00 Pulse Rate 74 03/07/17 10:00 Respiratory Rate 18 03/07/17 10:00 Blood Pressure 112/48 03/07/17 10:00 O2 Sat by Pulse Oximetry (%) 98 03/06/17 18:45 Constitutional: Yes: No Distress, Calm Neck: Yes: Supple Cardiovascular: Yes: Regular Rate and Rhythm Respiratory: Yes: Regular, Diminished, On Nasal O2 Gastrointestinal: Yes: Normal Bowel Sounds, Soft Edema: No Neurological: Yes: Pre-Existing Deficit Labs: CBC, BMP 03/07/17 06:20 03/07/17 06:20 INR, PTT INR 1.20 (0.82-1.09) H 03/04/17 18:00 Problem List - Problems (1) Displaced fracture of left femoral neck Code(s): S72.002A - FRACTURE OF UNSP PART OF NECK OF LEFT FEMUR, INIT (2) Fall from standing Code(s): W19.XXXA - UNSPECIFIED FALL, INITIAL ENCOUNTER Qualifiers: Encounter type: initial encounter Qualified Code(s): W19.XXXA - Unspecified fall, initial encounter (3) Cerebrovascular accident (CVA) Code(s): I63.9 - CEREBRAL INFARCTION, UNSPECIFIED Qualifiers: CVA mechanism: unspecified Qualified Code(s): I63.9 - Cerebral infarction, unspecified (4) HLD (hyperlipidemia) Code(s): E78.5 - HYPERLIPIDEMIA, UNSPECIFIED Qualifiers: Hyperlipidemia type: pure hypercholesterolemia Qualified Code(s): E78.00 - Pure hypercholesterolemia, unspecified; E78.0 - Pure hypercholesterolemia (5) History of intracranial hemorrhage Code(s): Z86.79 - PERSONAL HISTORY OF OTHER DISEASES OF THE CIRCULATORY SYSTEM (6) Hypothyroid Code(s): E03.9 - HYPOTHYROIDISM, UNSPECIFIED Qualifiers: Hypothyroidism type: unspecified Qualified Code(s): E03.9 - Hypothyroidism, unspecified (7) Labile hypertension Code(s): I10 - ESSENTIAL (PRIMARY) HYPERTENSION (8) History of hemiarthroplasty of left hip Code(s): Z96.642 - PRESENCE OF LEFT ARTIFICIAL HIP JOINT (9) History of surgery for cerebral aneurysm Code(s): Z98.890 - OTHER SPECIFIED POSTPROCEDURAL STATES (10) Seizure disorder Code(s): G40.909 - EPILEPSY, UNSP, NOT INTRACTABLE, WITHOUT STATUS EPILEPTICUS Assessment/Plan 02/15/2017 Echo: Normal LV and RV size and fxn, borderline LAR, mild MR, TR 1. POD#1 left hip hemiarthroplasty for left displaced femoral neck fx stable CV- ibanez 2. 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 Atypical chest pain 4. Hyperlipidemia 5. H/o ICH, hemorrhagic stroke with residual left sided deficits 6. Hypothyroidism P: 1. Continue Labetolol 200 qAM, 100 qPM and qhs, Crestor 10 qd, lisinopril 20 qd , resume Norvasc 5 qd 2. DVT prophylaxis with Lovenox 40 qd 3. Analgesia as needed, PT as tolerated
--- NOTE | 2017-03-07 14:22 | OP ---
DATE OF OPERATION: 03/06/2017 PREOPERATIVE DIAGNOSIS: Left femoral neck fracture. POSTOPERATIVE DIAGNOSIS: Left femoral neck fracture. PROCEDURE: Left hip hemiarthroplasty. SURGEON: Camille Corona M.D. WEB CONTENT WRITER: Nataliya Rosales, Maryann Childress MD, Antione Moreno MD. ANESTHESIA: Spinal anesthesia with sedation. DRAINS: None. COMPLICATIONS: None. BLOOD LOSS: 75 mL. SPECIMEN: Femoral head. BLOOD GIVEN: None. FLUID REPLACEMENT: 700 mL Plasma-Lyte. This patient is a 76-year-old female with preoperative diagnosis of a left hip femoral neck fracture. After she and her family understood the potential risks, complications, alternatives, and benefits to surgery versus nonsurgical treatment, the patient elected to undergo this procedure. The patient was brought to the operating room, peripheral IV placed, IV sedation given. Spinal anesthesia was induced, sedation was given. She was placed into the right lateral decubitus position on the fracture table. The left lower extremity was prepped and draped in sterile fashion, a curvilinear incision marked out with a marking pen and the incision made with a number 10 scalpel blade. Subcutaneous hemostasis was achieved with a Bovie cautery. Ruthie retractor was used to retract the skin. Additional dissection was done with the Bovie down to the lateral fascia, which was incised, and blunt dissection continued proximal and distal with my index finger. The Charnley retractors with the standard blades were placed in anterior and posterior, retracting the deep fascia. The leg was put to a position of flexion and internal rotation to put pressure on the posterior structures. Then under direct visualization the short external rotators and the capsule were taken down off the femoral neck. Part of it was already done because of the hip fracture. Kochers were placed onto the hip capsule. Additional dissection was done, getting the soft tissue free from the femoral neck, and a T capsulotomy was performed and marked for later repair. Great care was taken not to cut the labrum. Once this was done, I used the standard Alviso Accolade femoral neck cutting guide, marked it at the appropriate angle and length, and used the oscillating saw to make the femoral neck cut. The bony fragments were removed with the rongeur. Next, the corkscrew was placed into the femoral head, and the femoral head was taken out. We measured a 48 and a 49 and trialed both. The 48 seemed to be extremely stable and the right size for her acetabulum. The trial was removed. The area was copiously irrigated and washed out. The area was inspected, irrigated. No other small debris was noted. Next, the femoral canal was prepared, first with a box osteotome, then the canal finder, then sequential broaches starting at 0, going up by increments of 1, in this case up to a size 7. It was quite stable, held in place. It was down at the appropriate depth. Calcar reamer was used to take off a small portion of the medial calcar. We trialed with the standard neck and a 48-mm head, then we tried a +4 neck and the 48-mm head, and this was seen to be more stable. Excellent equal and symmetric leg length. It was difficult to dislocate, therefore the bone hook was used, the head and neck removed, the broach handle used to remove the size 7 broach. The canal was irrigated, gently washed out and dried. The actual Alviso left hip hemiarthroplasty femoral stem was placed in and knocked into place with the impacter and the mallet. Next, a +4 neck with a 48-mm head was placed on and hit into place with the impacter and the mallet. I tried to pull it off, I could not. Therefore it was reduced. It came together quite nicely. There was an excellent suction sound as I reduced it. The legs were of equal lengths. The patellae were equal location, and I could not dislocate the hip in any position including severe hip flexion and internal rotation. The area was irrigated and washed out again and closure done. The capsule was closed with 0 Vicryl suture. The fascia was closed with 0 Vicryl. Some 0 Vicryl sutures were placed into the deep adipose layer. Vicryl 2-0 was used to close the deep dermal layer, and final skin reapproximation was done with a running subcuticular 3-0 V-Loc suture. The area was then washed and dried, covered with skin glue, Aquacel dressing. Total operative time was about 45 minutes. The patient was stable throughout the case. Blood loss was only 75 mL. She was put into the supine position. X-rays were taken, and there were no cardiovascular events. She was brought to the regular recovery room in stable condition. CAMILLE CORONA M.D. [id number]
[2017-03-07] MEDS: ALPRAZolam 0.25 MG TABLET PO PRN (16:26)
[2017-03-07] MEDS: morphine CARPU-JECT 2 MG/1 ML DISP.SYRIN IVPB PRN (18:46)
--- NOTE | 2017-03-07 22:30 | PN ---
Progress Note, Physician History of Present Illness: I saw pt in AM. She was sleepy, answered to questions slowly, couldn't keep eyes open for extended periods of time Pt. w/ CP, SOB, abd pain, leg pain. - Current Medication List Current Medications: Active Medications Alprazolam (Xanax -) 0.25 mg PO BID PRN PRN Reason: ANXIETY Last Admin: 03/07/17 16:26 Dose: 0.25 mg Amlodipine Besylate (Norvasc -) 5 mg PO DAILY [facility] Enoxaparin Sodium (Lovenox -) 40 mg SQ DAILY [facility] Last Admin: 03/07/17 09:11 Dose: 40 mg Sodium Chloride (Normal Saline -) 1,000 mls @ 50 mls/hr IV ASDIR [facility] Last Admin: 03/06/17 20:53 Dose: 50 mls/hr Labetalol HCl (Normodyne -) 100 mg PO TID [facility] Last Admin: 03/07/17 21:21 Dose: 100 mg Labetalol HCl (Normodyne -) 100 mg PO DAILY@06 [facility] Last Admin: 03/07/17 06:07 Dose: 100 mg Levetiracetam (Keppra -) 750 mg PO BID [facility] Last Admin: 03/07/17 21:21 Dose: 750 mg Levothyroxine Sodium (Synthroid -) 50 mcg PO DAILY@0700 [facility] Last Admin: 03/07/17 06:07 Dose: 50 mcg Lisinopril (Prinivil) 20 mg PO DAILY [facility] Last Admin: 03/07/17 09:11 Dose: 20 mg Morphine Sulfate (Morphine Injection -) 2 mg IVPB Q3H PRN PRN Reason: PAIN Last Admin: 03/07/17 18:46 Dose: 2 mg Sertraline HCl (Zoloft -) 50 mg PO DAILY [facility] Last Admin: 03/07/17 09:11 Dose: 50 mg - Objective Vital Signs: Vital Signs Temperature 98.3 F 03/07/17 14:00 Pulse Rate 87 03/07/17 22:00 Respiratory Rate 20 03/07/17 14:00 Blood Pressure 129/53 03/07/17 22:00 O2 Sat by Pulse Oximetry (%) 98 03/06/17 18:45 Constitutional: Yes: No Distress, Calm Cardiovascular: Yes: Regular Rate and Rhythm, S1, S2 Respiratory: Yes: Regular, CTA Bilaterally. No: Rales Gastrointestinal: Yes: Normal Bowel Sounds, Soft. No: Palpable Mass Edema: No Labs: CBC, BMP 03/07/17 06:20 03/07/17 06:20 INR, PTT INR 1.20 (0.82-1.09) H 03/04/17 18:00 Problem List - Problems (1) Fall from standing Code(s): W19.XXXA - UNSPECIFIED FALL, INITIAL ENCOUNTER Qualifiers: Encounter type: initial encounter Qualified Code(s): W19.XXXA - Unspecified fall, initial encounter (2) Displaced fracture of left femoral neck Assessment/Plan: s/p ORIF post op day 1 Code(s): S72.002A - FRACTURE OF UNSP PART OF NECK OF LEFT FEMUR, INIT (3) Cerebrovascular accident (CVA) Code(s): I63.9 - CEREBRAL INFARCTION, UNSPECIFIED Qualifiers: CVA mechanism: unspecified Qualified Code(s): I63.9 - Cerebral infarction, unspecified (4) History of intracranial hemorrhage Code(s): Z86.79 - PERSONAL HISTORY OF OTHER DISEASES OF THE CIRCULATORY SYSTEM (5) History of surgery for cerebral aneurysm Code(s): Z98.890 - OTHER SPECIFIED POSTPROCEDURAL STATES (6) Hypothyroid Code(s): E03.9 - HYPOTHYROIDISM, UNSPECIFIED Qualifiers: Hypothyroidism type: unspecified Qualified Code(s): E03.9 - Hypothyroidism, unspecified (7) Hyponatremia Assessment/Plan: could be secondary to pain; improved now; to monitor in AM Code(s): E87.1 - HYPO-OSMOLALITY AND HYPONATREMIA Assessment/Plan Ortho consult appreciated. Cardio consult for clearance appreciated. Neuro consult appreciated. DVT prophylaxis. Pain control. Post op day 1 Incentive spirometry. IVF To readjust pain meds Case was d/w pt's nurse (Gabe)
[2017-03-07] MEDS: SODIUM CHLORIDE 1,000 ML IV SCH (23:14)
[2017-03-08] MEDS: SODIUM CHLORIDE 1,000 ML IV SCH ×2 (02:00→20:45)
[2017-03-08] MEDS: morphine CARPU-JECT 2 MG/1 ML DISP.SYRIN IVPB PRN (05:54)
[2017-03-08] MEDS: LABETALOL HCL 100 MG TABLET (FP) PO SCH ×4 (05:56→21:24)
[2017-03-08] MEDS: LEVOTHYROXINE NA 50 MCG TABLET (FP) PO SCH (05:59)
[2017-03-08 07:02] LABS: MCH 28.3 pg (25.7-33.7); MCHC 33.6 g/dl (32.0-36.0); MEAN PLT VOLUME 7.9 fl (7.5-11.1); PLATELET COUNT 144 K/MM3 (134-434); WHITE BLOOD COUNT 7.7 K/mm3 (4.0-10.0)
[2017-03-08 07:12] LABS: ALBUMIN 2.3 g/dl (3.4-5.0); ALK PHOS 165 U/L (45-117); ANION GAP 12 (8-16); BILIRUBIN,TOTAL 0.5 mg/dL (0.2-1.0); CALCIUM 8.1 mg/dL (8.5-10.1); CO2 23 mmol/L (21-32); CREATININE 0.8 mg/dL (0.55-1.02); GLUCOSE,RANDOM 146 mg/dL (74-106); SGOT/AST 54 U/L (15-37); SGPT/ALT 40 U/L (12-78); TOT PROT 4.6 g/dl (6.4-8.2)
--- NOTE | 2017-03-08 09:14 | PN ---
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 She states that she tripped while using her walker and fell onto both legs. She has severe pain to the L leg, from the upper leg radiating to the groin. Unable to stand due to pain. Denies any other injuries. No LOC, no head injury. XRAY shows left femoral neck fracture. S/p left hip hemiarthoplasty POD #2- no new neurological issues. 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.) Cardio/Vascular: Yes: HTN, Hyperlipdemia Endocrine: Yes: Hypothyroidism - Alcohol/Substance Use Hx Alcohol Use: No - Smoking History Smoking history: Never smoked Have you smoked in the past 12 months: No Home Medications - Allergies Allergies/Adverse Reactions: Allergies Allergy/AdvReac Type Severity Reaction Status Date / Time No Known Allergies Allergy Verified 03/04/17 17:22 - Home Medications Home Medication List Medication Instructions Recorded Confirmed Type Levothyroxine [Synthroid -] 50 mcg PO DAILY 04/19/14 03/04/17 History Amlodipine Besylate [Norvasc -] 5 mg PO DAILY 02/23/17 03/05/17 History Labetalol HCl [Normodyne -] 100 mg PO TID [facility] 400 02/23/17 03/04/17 History Levetiracetam [Keppra] 750 mg PO HS 02/23/17 03/05/17 History Lisinopril [Prinivil] 20 mg PO DAILY 02/23/17 03/04/17 History Sertraline HCl 50 mg PO DAILY 02/23/17 03/04/17 History Active Medications Generic Name Dose Route Start Last Admin Trade Name Freq PRN Reason Stop Dose Admin Alprazolam 0.25 mg 03/07/17 13:54 03/07/17 16:26 Xanax - PO 0.25 mg BID PRN Administration ANXIETY Amlodipine Besylate 5 mg 03/08/17 10:00 Norvasc - PO DAILY [facility] Enoxaparin Sodium 40 mg 03/07/17 10:00 03/07/17 09:11 Lovenox - SQ 40 mg DAILY [facility] Administration Sodium Chloride 1,000 mls @ 50 mls/hr 03/06/17 20:45 03/07/17 23:14 Normal Saline - IV 50 mls/hr ASDIR [facility] Administration Labetalol HCl 100 mg 03/06/17 22:00 03/08/17 05:56 Normodyne - PO 100 mg TID [facility] Administration Labetalol HCl 100 mg 03/07/17 06:00 03/08/17 05:56 Normodyne - PO 100 mg DAILY@06 [facility] Administration Levetiracetam 750 mg 03/06/17 22:00 03/07/17 21:21 Keppra - PO 750 mg BID [facility] Administration Levothyroxine Sodium 50 mcg 03/07/17 07:00 03/08/17 05:59 Synthroid - PO 50 mcg DAILY@0700 [facility] Administration Lisinopril 20 mg 03/07/17 10:00 03/07/17 09:11 Prinivil PO 20 mg DAILY [facility] Administration Morphine Sulfate 2 mg 03/07/17 13:56 03/08/17 05:54 Morphine Injection - IVPB 2 mg Q3H PRN Administration PAIN Sertraline HCl 50 mg 03/07/17 10:00 03/07/17 09:11 Zoloft - PO 50 mg DAILY [facility] Administration Physical Exam-Neuro Vital Signs: Vital Signs Temperature 98 F 03/08/17 08:00 Pulse Rate 69 03/08/17 08:00 Respiratory Rate 18 03/08/17 08:00 Blood Pressure 108/45 03/08/17 08:00 O2 Sat by Pulse Oximetry (%) 98 03/06/17 18:45 Constitutional: Yes: Well Nourished Neck: Yes: WNL Cardiovascular: Yes: Regular Rate and Rhythm Respiratory: Yes: CTA Bilaterally Labs: CBCD WBC 7.7 K/mm3 (4.0-10.0) 03/08/17 05:55 RBC 2.79 M/mm3 (3.60-5.2) L 03/08/17 05:55 Hgb 7.9 GM/dL (10.7-15.3) L D 03/08/17 05:55 Hct 23.4 % (32.4-45.2) L 03/08/17 05:55 MCV 84.0 fl (80-96) 03/08/17 05:55 MCHC 33.6 g/dl (32.0-36.0) 03/08/17 05:55 RDW 14.0 % (11.6-15.6) 03/08/17 05:55 Plt Count 144 K/MM3 (134-434) 03/08/17 05:55 MPV 7.9 fl (7.5-11.1) 03/08/17 05:55 CMP Sodium 137 mmol/L (136-145) 03/08/17 05:55 Potassium 4.1 mmol/L (3.5-5.1) 03/08/17 05:55 Chloride 102 mmol/L (98-107) 03/08/17 05:55 Carbon Dioxide 23 mmol/L (21-32) 03/08/17 05:55 Anion Gap 12 (8-16) 03/08/17 05:55 BUN 28 mg/dL (7-18) H D 03/08/17 05:55 Creatinine 0.8 mg/dL (0.55-1.02) 03/08/17 05:55 Creat Clearance w eGFR > 60 (>60) 03/08/17 05:55 Calcium 8.1 mg/dL (8.5-10.1) L 03/08/17 05:55 Total Bilirubin 0.5 mg/dL (0.2-1.0) D 03/08/17 05:55 AST 54 U/L (15-37) H 03/08/17 05:55 ALT 40 U/L (12-78) D 03/08/17 05:55 Alkaline Phosphatase 165 U/L (45-117) H D 03/08/17 05:55 Total Protein 4.6 g/dl (6.4-8.2) L 03/08/17 05:55 Albumin 2.3 g/dl (3.4-5.0) L 03/08/17 05:55 - Neuro Exam Level Of Consciousness: Yes: Alert, Oriented to Person (EOMI, no aphasia, dysrthria, spastic left heimplegia , brisk L >R, left leg flexed (pain); gait not tested) NIH Stroke Scale - Total Score NIH Stroke Scale Score: 0 Assessment/Plan HX of Hemorrhagic CVA (s/p craniotomy, no residual bleed on recent CT , ), with residual left spastic hemiplegia, likely prior hypertensive bleed; S/p oupt rehb /botox LUE, now with fall and left femoral neck fracture - s/p hemiarthroplasty -POD #2, in pain , will add on percocet PT and rehab FU, Dr Sharma [phone]
[2017-03-08] MEDS ORDERED: OXYCODONE/APAP 5/325MG COMBO TABLET PO PRN (09:15)
[2017-03-08] MEDS: amLODIPine BESYLATE 5 MG TABLET (FP) PO SCH (10:25)
[2017-03-08] MEDS: ALPRAZolam 0.25 MG TABLET PO PRN ×2 (10:25→18:34)
[2017-03-08] MEDS: LISINOPRIL 20 MG TABLET (FP) PO SCH (10:25)
[2017-03-08] MEDS: SERTRALINE HCL 50 MG TABLET (FP) PO SCH (10:25)
[2017-03-08] MEDS: levETIRAcetam 250 MG TABLET (FP) PO SCH ×2 (10:25→21:24)
[2017-03-08] MEDS: ENOXAPARIN NA (PORCINE) 40 MG/0.4 ML DISP.SYRIN SQ SCH (10:26)
--- NOTE | 2017-03-08 10:56 | PN ---
Progress Note (short form) - Note Progress Note: Pt seen and examined. POD #2 s/p Left hip jamari. Doing fine, no obvious pain. H/H con't to drop, now 7.4/23.4 LLE grossly NVI Dressing CDI Imp Doing fine orthopedically Rec P.T. as tolerated DC planning Transfuse 1-2 PRBCs
--- NOTE | 2017-03-08 12:06 | PN ---
Progress Note, Physician History of Present Illness: Resting comfortably POD#2 left hip hemiarthroplasty. - Current Medication List Current Medications: Active Medications Acetaminophen (Tylenol -) 650 mg PO Q6H PRN PRN Reason: FOR PAIN LEVEL 6-10 Alprazolam (Xanax -) 0.25 mg PO BID PRN PRN Reason: ANXIETY Last Admin: 03/08/17 10:25 Dose: 0.25 mg Amlodipine Besylate (Norvasc -) 5 mg PO DAILY [facility] Last Admin: 03/08/17 10:25 Dose: 5 mg Enoxaparin Sodium (Lovenox -) 40 mg SQ DAILY [facility] Last Admin: 03/08/17 10:26 Dose: 40 mg Sodium Chloride (Normal Saline -) 1,000 mls @ 50 mls/hr IV ASDIR [facility] Last Admin: 03/07/17 23:14 Dose: 50 mls/hr Labetalol HCl (Normodyne -) 100 mg PO TID [facility] Last Admin: 03/08/17 05:56 Dose: 100 mg Labetalol HCl (Normodyne -) 100 mg PO DAILY@06 [facility] Last Admin: 03/08/17 05:56 Dose: 100 mg Levetiracetam (Keppra -) 750 mg PO BID [facility] Last Admin: 03/08/17 10:25 Dose: 750 mg Levothyroxine Sodium (Synthroid -) 50 mcg PO DAILY@0700 [facility] Last Admin: 03/08/17 05:59 Dose: 50 mcg Lisinopril (Prinivil) 20 mg PO DAILY [facility] Last Admin: 03/08/17 10:25 Dose: 20 mg Morphine Sulfate (Morphine Injection -) 2 mg IVPB Q3H PRN PRN Reason: PAIN Last Admin: 03/08/17 05:54 Dose: 2 mg Oxycodone HCl (Roxicodone -) 10 mg PO Q6H PRN PRN Reason: FOR PAIN LEVEL 6-10 Sertraline HCl (Zoloft -) 50 mg PO DAILY [facility] Last Admin: 03/08/17 10:25 Dose: 50 mg - Objective Vital Signs: Vital Signs Temperature 98 F 03/08/17 08:00 Pulse Rate 78 03/08/17 10:30 Respiratory Rate 18 03/08/17 10:30 Blood Pressure 122/45 03/08/17 10:30 O2 Sat by Pulse Oximetry (%) 98 03/06/17 18:45 Constitutional: Yes: No Distress, Calm Neck: Yes: Supple Cardiovascular: Yes: Regular Rate and Rhythm Respiratory: Yes: Regular, Diminished Gastrointestinal: Yes: Normal Bowel Sounds, Soft Edema: No Labs: CBC, BMP 03/08/17 05:55 03/08/17 05:55 INR, PTT INR 1.20 (0.82-1.09) H 03/04/17 18:00 Problem List - Problems (1) Displaced fracture of left femoral neck Code(s): S72.002A - FRACTURE OF UNSP PART OF NECK OF LEFT FEMUR, INIT (2) Fall from standing Code(s): W19.XXXA - UNSPECIFIED FALL, INITIAL ENCOUNTER Qualifiers: Encounter type: initial encounter Qualified Code(s): W19.XXXA - Unspecified fall, initial encounter (3) Cerebrovascular accident (CVA) Code(s): I63.9 - CEREBRAL INFARCTION, UNSPECIFIED Qualifiers: CVA mechanism: unspecified Qualified Code(s): I63.9 - Cerebral infarction, unspecified (4) HLD (hyperlipidemia) Code(s): E78.5 - HYPERLIPIDEMIA, UNSPECIFIED Qualifiers: Hyperlipidemia type: pure hypercholesterolemia Qualified Code(s): E78.00 - Pure hypercholesterolemia, unspecified; E78.0 - Pure hypercholesterolemia (5) History of intracranial hemorrhage Code(s): Z86.79 - PERSONAL HISTORY OF OTHER DISEASES OF THE CIRCULATORY SYSTEM (6) Hypothyroid Code(s): E03.9 - HYPOTHYROIDISM, UNSPECIFIED Qualifiers: Hypothyroidism type: unspecified Qualified Code(s): E03.9 - Hypothyroidism, unspecified (7) Labile hypertension Code(s): I10 - ESSENTIAL (PRIMARY) HYPERTENSION (8) History of hemiarthroplasty of left hip Code(s): Z96.642 - PRESENCE OF LEFT ARTIFICIAL HIP JOINT (9) History of surgery for cerebral aneurysm Code(s): Z98.890 - OTHER SPECIFIED POSTPROCEDURAL STATES (10) Seizure disorder Code(s): G40.909 - EPILEPSY, UNSP, NOT INTRACTABLE, WITHOUT STATUS EPILEPTICUS Assessment/Plan 02/15/2017 Echo: Normal LV and RV size and fxn, borderline LAR, mild MR, TR 1. POD#2 left hip hemiarthroplasty for left displaced femoral neck fx stable CV- ibanez 2. 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 Atypical chest pain 4. Hyperlipidemia 5. H/o ICH, hemorrhagic stroke with residual left sided deficits 6. Hypothyroidism 7. Post-op anemia P: 1. Continue Labetolol 200 qAM, 100 qPM and qhs, Crestor 10 qd, lisinopril 20 qd , and Norvasc 5 qd 2. DVT prophylaxis with Lovenox 40 qd 3. Analgesia as needed, PT as tolerated, transfuse 1 U PRBC
[2017-03-08] MEDS: ACETAMINOPHEN 325 MG TABLET (FP) PO PRN (13:47)
[2017-03-08] MEDS: oxyCODONE HCL 5 MG TABLET PO PRN (13:48)
--- NOTE | 2017-03-08 15:05 | PATH ---
Surgical Pathology Report Patient Name: JENNIFER POWERS Med. Rec. #: [id number] /Age/Gender: 1940 (Age: 76) / F Account: [id number] Location: [address] [place] [address]/[facility] Taken: 03/06/2017 Received: 03/07/2017 Reported: 03/08/2017 Physicians: Orlando Gomes M.D. Specimen(s) Received LEFT FEMORAL HEAD Clinical History Left leg pain, displaced fracture Final Diagnosis BONE, LEFT FEMORAL HEAD, REPLACEMENT: BONE WITH INTERSTITIAL HEMORRHAGE CONSISTENT WITH FRACTURE. Electronically Signed Tim Stubbs M.D. Gross Description Received in formalin, labeled "femoral head," is a 4.7 x 4.7 x 4.2 cm. femoral head with no femoral neck attached. The margin of resection is red-brown, jagged and hemorrhagic. No areas of eburnation are identified. The articular surface is fowler-yellow and focally granular. The underlying trabecular bone is yellow, hard and focally hemorrhagic. Therapeutic Support Staff sections are submitted in one cassette, following decalcification. 03/07/201703/07/2017
--- NOTE | 2017-03-08 19:52 | PN ---
Progress Note, Physician History of Present Illness: Pt. w/ CP, SOB, abd pain, leg pain (now). - Current Medication List Current Medications: Active Medications Acetaminophen (Tylenol -) 650 mg PO Q6H PRN PRN Reason: FOR PAIN LEVEL 6-10 Last Admin: 03/08/17 13:47 Dose: 650 mg Alprazolam (Xanax -) 0.25 mg PO Q6H PRN PRN Reason: ANXIETY Last Admin: 03/08/17 18:34 Dose: 0.25 mg Amlodipine Besylate (Norvasc -) 5 mg PO DAILY [facility] Last Admin: 03/08/17 10:25 Dose: 5 mg Enoxaparin Sodium (Lovenox -) 40 mg SQ DAILY [facility] Last Admin: 03/08/17 10:26 Dose: 40 mg Sodium Chloride (Normal Saline -) 1,000 mls @ 50 mls/hr IV ASDIR [facility] Last Admin: 03/07/17 23:14 Dose: 50 mls/hr Labetalol HCl (Normodyne -) 100 mg PO TID [facility] Last Admin: 03/08/17 13:47 Dose: 100 mg Labetalol HCl (Normodyne -) 100 mg PO DAILY@06 [facility] Last Admin: 03/08/17 05:56 Dose: 100 mg Levetiracetam (Keppra -) 750 mg PO BID [facility] Last Admin: 03/08/17 10:25 Dose: 750 mg Levothyroxine Sodium (Synthroid -) 50 mcg PO DAILY@0700 [facility] Last Admin: 03/08/17 05:59 Dose: 50 mcg Lisinopril (Prinivil) 20 mg PO DAILY [facility] Last Admin: 03/08/17 10:25 Dose: 20 mg Oxycodone HCl (Roxicodone -) 10 mg PO Q6H PRN PRN Reason: FOR PAIN LEVEL 6-10 Last Admin: 03/08/17 13:48 Dose: 10 mg Sertraline HCl (Zoloft -) 50 mg PO DAILY [facility] Last Admin: 03/08/17 10:25 Dose: 50 mg - Objective Vital Signs: Vital Signs Temperature 97.8 F 03/08/17 18:20 Pulse Rate 68 03/08/17 18:20 Respiratory Rate 18 03/08/17 18:20 Blood Pressure 105/46 03/08/17 18:20 O2 Sat by Pulse Oximetry (%) 96 03/08/17 09:00 Constitutional: Yes: No Distress, Calm Cardiovascular: Yes: Regular Rate and Rhythm, S1, S2 Respiratory: Yes: Regular, CTA Bilaterally. No: Rales Gastrointestinal: Yes: Normal Bowel Sounds, Soft. No: Palpable Mass, Tenderness Edema: No Labs: CBC, BMP 03/08/17 05:55 03/08/17 05:55 INR, PTT INR 1.20 (0.82-1.09) H 03/04/17 18:00 Problem List - Problems (1) Fall from standing Code(s): W19.XXXA - UNSPECIFIED FALL, INITIAL ENCOUNTER Qualifiers: Encounter type: initial encounter Qualified Code(s): W19.XXXA - Unspecified fall, initial encounter (2) Displaced fracture of left femoral neck Code(s): S72.002A - FRACTURE OF UNSP PART OF NECK OF LEFT FEMUR, INIT (3) Cerebrovascular accident (CVA) Code(s): I63.9 - CEREBRAL INFARCTION, UNSPECIFIED Qualifiers: CVA mechanism: unspecified Qualified Code(s): I63.9 - Cerebral infarction, unspecified (4) History of intracranial hemorrhage Code(s): Z86.79 - PERSONAL HISTORY OF OTHER DISEASES OF THE CIRCULATORY SYSTEM (5) History of surgery for cerebral aneurysm Code(s): Z98.890 - OTHER SPECIFIED POSTPROCEDURAL STATES (6) Hypothyroid Code(s): E03.9 - HYPOTHYROIDISM, UNSPECIFIED Qualifiers: Hypothyroidism type: unspecified Qualified Code(s): E03.9 - Hypothyroidism, unspecified (7) Hyponatremia Code(s): E87.1 - HYPO-OSMOLALITY AND HYPONATREMIA (8) Elevated LFTs Code(s): R79.89 - OTHER SPECIFIED ABNORMAL FINDINGS OF BLOOD CHEMISTRY (9) Anemia Assessment/Plan: H/H trending down One unit of PRBC Tx To monitor CBC in AM Code(s): D64.9 - ANEMIA, UNSPECIFIED Assessment/Plan Ortho consult appreciated. Cardio consult for clearance appreciated. Neuro consult appreciated. DVT prophylaxis. Pain control. Post op day 2 Incentive spirometry. Liver US Transfuse 1 unit PRBC
[2017-03-09] MEDS: ALPRAZolam 0.25 MG TABLET PO PRN (05:52)
[2017-03-09] MEDS: LABETALOL HCL 100 MG TABLET (FP) PO SCH ×4 (05:55→21:20)
[2017-03-09] MEDS: LEVOTHYROXINE NA 50 MCG TABLET (FP) PO SCH (06:09)
[2017-03-09 07:45] LABS: MCH 28.7 pg (25.7-33.7); MCHC 34.2 g/dl (32.0-36.0); MEAN PLT VOLUME 7.4 fl (7.5-11.1); PLATELET COUNT 173 K/MM3 (134-434); RDW 13.7 % (11.6-15.6); WHITE BLOOD COUNT 6.8 K/mm3 (4.0-10.0)
[2017-03-09 08:08] LABS: ALBUMIN 2.5 g/dl (3.4-5.0); ANION GAP 10 (8-16); CALCIUM 8.6 mg/dL (8.5-10.1); CO2 24 mmol/L (21-32); GLUCOSE,RANDOM 139 mg/dL (74-106)
[2017-03-09 08:11] LABS: ALK PHOS 209 U/L (45-117); COCKROFT - GAULT 65.2205; CREATININE 0.6 mg/dL (0.55-1.02); SGOT/AST 35 U/L (15-37); SGPT/ALT 35 U/L (12-78)
--- NOTE | 2017-03-09 10:31 | PN ---
Progress Note, Physician History of Present Illness: Pt. w/ CP, SOB, abd pain, leg pain (now). Pt. admits being anxious and not herself, states that is not depressed . - Current Medication List Current Medications: Active Medications Acetaminophen (Tylenol -) 650 mg PO Q6H PRN PRN Reason: FOR PAIN LEVEL 6-10 Last Admin: 03/08/17 13:47 Dose: 650 mg Alprazolam (Xanax -) 0.25 mg PO Q6H PRN PRN Reason: ANXIETY Last Admin: 03/09/17 05:52 Dose: 0.25 mg Amlodipine Besylate (Norvasc -) 5 mg PO DAILY [facility] Last Admin: 03/08/17 10:25 Dose: 5 mg Enoxaparin Sodium (Lovenox -) 40 mg SQ DAILY [facility] Last Admin: 03/08/17 10:26 Dose: 40 mg Sodium Chloride (Normal Saline -) 1,000 mls @ 50 mls/hr IV ASDIR [facility] Last Admin: 03/08/17 20:45 Dose: Not Given Labetalol HCl (Normodyne -) 100 mg PO TID [facility] Last Admin: 03/09/17 05:55 Dose: Not Given Labetalol HCl (Normodyne -) 100 mg PO DAILY@06 [facility] Last Admin: 03/09/17 05:55 Dose: Not Given Levetiracetam (Keppra -) 750 mg PO BID [facility] Last Admin: 03/08/17 21:24 Dose: 750 mg Levothyroxine Sodium (Synthroid -) 50 mcg PO DAILY@0700 [facility] Last Admin: 03/09/17 06:09 Dose: 50 mcg Lisinopril (Prinivil) 20 mg PO DAILY [facility] Last Admin: 03/08/17 10:25 Dose: 20 mg Oxycodone HCl (Roxicodone -) 10 mg PO Q6H PRN PRN Reason: FOR PAIN LEVEL 6-10 Last Admin: 03/08/17 13:48 Dose: 10 mg Sertraline HCl (Zoloft -) 50 mg PO DAILY [facility] Last Admin: 03/08/17 10:25 Dose: 50 mg - Objective Vital Signs: Vital Signs Temperature 99.3 F 03/09/17 06:00 Pulse Rate 73 03/09/17 06:00 Respiratory Rate 20 03/09/17 06:00 Blood Pressure 136/55 03/09/17 06:00 O2 Sat by Pulse Oximetry (%) 96 03/08/17 20:09 Constitutional: Yes: No Distress, Calm Cardiovascular: Yes: Regular Rate and Rhythm, S1, S2 Respiratory: Yes: Regular, CTA Bilaterally. No: Rales Gastrointestinal: Yes: Normal Bowel Sounds, Soft. No: Palpable Mass, Tenderness Edema: No Neurological: Yes: Alert, Oriented Labs: CBC, BMP 03/09/17 06:30 03/09/17 06:30 INR, PTT INR 1.20 (0.82-1.09) H 03/04/17 18:00 Problem List - Problems (1) Fall from standing Code(s): W19.XXXA - UNSPECIFIED FALL, INITIAL ENCOUNTER Qualifiers: Encounter type: initial encounter Qualified Code(s): W19.XXXA - Unspecified fall, initial encounter (2) Displaced fracture of left femoral neck Assessment/Plan: s/p ORIF post op day 3 Code(s): S72.002A - FRACTURE OF UNSP PART OF NECK OF LEFT FEMUR, INIT (3) Cerebrovascular accident (CVA) Code(s): I63.9 - CEREBRAL INFARCTION, UNSPECIFIED Qualifiers: CVA mechanism: unspecified Qualified Code(s): I63.9 - Cerebral infarction, unspecified (4) History of intracranial hemorrhage Code(s): Z86.79 - PERSONAL HISTORY OF OTHER DISEASES OF THE CIRCULATORY SYSTEM (5) History of surgery for cerebral aneurysm Code(s): Z98.890 - OTHER SPECIFIED POSTPROCEDURAL STATES (6) Hypothyroid Code(s): E03.9 - HYPOTHYROIDISM, UNSPECIFIED Qualifiers: Hypothyroidism type: unspecified Qualified Code(s): E03.9 - Hypothyroidism, unspecified (7) Hyponatremia Assessment/Plan: improved on IVF Code(s): E87.1 - HYPO-OSMOLALITY AND HYPONATREMIA (8) Elevated LFTs Assessment/Plan: AST and ALT trending down. Alk Ph. still trending up. Liver US was taken, report is pending Code(s): R79.89 - OTHER SPECIFIED ABNORMAL FINDINGS OF BLOOD CHEMISTRY (9) Anemia Assessment/Plan: s/p one PRBC Tx To monitor CBC in AM Code(s): D64.9 - ANEMIA, UNSPECIFIED (10) Agitation Code(s): R45.1 - RESTLESSNESS AND AGITATION (11) Depression Code(s): F32.9 - MAJOR DEPRESSIVE DISORDER, SINGLE EPISODE, UNSPECIFIED Assessment/Plan Ortho consult appreciated. Cardio consult for clearance appreciated. Neuro consult appreciated. DVT prophylaxis. Pain control. Post op day 3 Incentive spirometry. Liver US- report pending s/p 1 unit PRBC Tx PT Psychiatry consult for agitation.
[2017-03-09] MEDS: ENOXAPARIN NA (PORCINE) 40 MG/0.4 ML DISP.SYRIN SQ SCH (10:35)
[2017-03-09] MEDS: levETIRAcetam 250 MG TABLET (FP) PO SCH ×2 (10:35→21:20)
[2017-03-09] MEDS: LISINOPRIL 20 MG TABLET (FP) PO SCH (10:36)
[2017-03-09] MEDS: amLODIPine BESYLATE 5 MG TABLET (FP) PO SCH (10:36)
[2017-03-09] MEDS: SERTRALINE HCL 50 MG TABLET (FP) PO SCH (10:36)
--- NOTE | 2017-03-09 14:26 | CON.PSY ---
Psychiatry Consult Chief Complaint: Patient keeps yelling aout that she wants go home. very agitated. refusing po meds. Symptoms: reports: Irritability, Inability to Control Temper, Aggressivity - Previous Psychiatric Treatment Outpatient: None Inpatient: None - Previous Substance Abuse Treatment Outpatient: None Inpatient: None - Current Medications Current Medications: Active Medications Acetaminophen (Tylenol -) 650 mg PO Q6H PRN PRN Reason: FOR PAIN LEVEL 6-10 Last Admin: 03/08/17 13:47 Dose: 650 mg Alprazolam (Xanax -) 0.25 mg PO Q6H PRN PRN Reason: ANXIETY Last Admin: 03/09/17 05:52 Dose: 0.25 mg Amlodipine Besylate (Norvasc -) 5 mg PO DAILY [facility] Last Admin: 03/09/17 10:36 Dose: 5 mg Enoxaparin Sodium (Lovenox -) 40 mg SQ DAILY [facility] Last Admin: 03/09/17 10:35 Dose: 40 mg Sodium Chloride (Normal Saline -) 1,000 mls @ 50 mls/hr IV ASDIR [facility] Last Admin: 03/08/17 20:45 Dose: Not Given Labetalol HCl (Normodyne -) 100 mg PO TID [facility] Last Admin: 03/09/17 05:55 Dose: Not Given Labetalol HCl (Normodyne -) 100 mg PO DAILY@06 [facility] Last Admin: 03/09/17 05:55 Dose: Not Given Levetiracetam (Keppra -) 750 mg PO BID [facility] Last Admin: 03/09/17 10:35 Dose: 750 mg Levothyroxine Sodium (Synthroid -) 50 mcg PO DAILY@0700 [facility] Last Admin: 03/09/17 06:09 Dose: 50 mcg Lisinopril (Prinivil) 20 mg PO DAILY [facility] Last Admin: 03/09/17 10:36 Dose: 20 mg Oxycodone HCl (Roxicodone -) 10 mg PO Q6H PRN PRN Reason: FOR PAIN LEVEL 6-10 Last Admin: 03/08/17 13:48 Dose: 10 mg Sertraline HCl (Zoloft -) 50 mg PO DAILY [facility] Last Admin: 03/09/17 10:36 Dose: 50 mg - Allergies Allergies: Allergies Allergy/AdvReac Type Severity Reaction Status Date / Time No Known Allergies Allergy Verified 03/04/17 17:22 - Current Living Status Usual Living Arrangement: Alone - Current Mental Status Evaluation Appearance: Disheveled Attitude: Belligerent - Affect Affect: Constrictive Appropriateness: Not Appropriate - Mood Mood: Angry - Speech/Language Expressive: Coherent - Psychomotor Activity Psychomotor Activity: Hyperactive, Agitated - Thought Process Thought Process: Circumstantial - Thought Content Hallucinations: Absent Delusions: Absent - Self Perception Self Perception: No Impairment - Cognition Attention: Alert Orientation: Time Memory, Immediate Recall: Intact Memory, Short Term: 2/3 Memory, Remote with Promptin/3 - Concentration Serial Sevens Intact: No Simple Calculations Intact: No - Abstraction Proverb Interpretation: Intact Judgement: Severely Impaired - Insight Insight: Impaired - Suicidal Ideation Suicidal Ideation: No - Homicidal Ideation Homicidal Ideation: No Assessment/Plan Ativan img po stat & ativan img po bid.
[2017-03-09] MEDS ORDERED: LORAZEPAM CARPU-JECT 2 MG/ML DISP.SYRIN IM ONE (14:27)
--- NOTE | 2017-03-09 16:43 | PN ---
Progress Note, Physician History of Present Illness: POD#3 left hip hemiarthroplasty, agitation decreased with anxiolytics. - Current Medication List Current Medications: Active Medications Acetaminophen (Tylenol -) 650 mg PO Q6H PRN PRN Reason: FOR PAIN LEVEL 6-10 Last Admin: 03/08/17 13:47 Dose: 650 mg Amlodipine Besylate (Norvasc -) 5 mg PO DAILY [facility] Last Admin: 03/09/17 10:36 Dose: 5 mg Enoxaparin Sodium (Lovenox -) 40 mg SQ DAILY [facility] Last Admin: 03/09/17 10:35 Dose: 40 mg Sodium Chloride (Normal Saline -) 1,000 mls @ 50 mls/hr IV ASDIR [facility] Last Admin: 03/08/17 20:45 Dose: Not Given Labetalol HCl (Normodyne -) 100 mg PO TID [facility] Last Admin: 03/09/17 14:36 Dose: 100 mg Labetalol HCl (Normodyne -) 100 mg PO DAILY@06 [facility] Last Admin: 03/09/17 05:55 Dose: Not Given Levetiracetam (Keppra -) 750 mg PO BID [facility] Last Admin: 03/09/17 10:35 Dose: 750 mg Levothyroxine Sodium (Synthroid -) 50 mcg PO DAILY@0700 [facility] Last Admin: 03/09/17 06:09 Dose: 50 mcg Lisinopril (Prinivil) 20 mg PO DAILY [facility] Last Admin: 03/09/17 10:36 Dose: 20 mg Lorazepam (Ativan -) 1 mg PO Q12H PRN PRN Reason: ANXIETY Oxycodone HCl (Roxicodone -) 10 mg PO Q6H PRN PRN Reason: FOR PAIN LEVEL 6-10 Last Admin: 03/08/17 13:48 Dose: 10 mg Sertraline HCl (Zoloft -) 50 mg PO DAILY [facility] Last Admin: 03/09/17 10:36 Dose: 50 mg - Objective Vital Signs: Vital Signs Temperature 97.3 F L 03/09/17 14:00 Pulse Rate 89 03/09/17 14:00 Respiratory Rate 17 03/09/17 14:00 Blood Pressure 150/66 03/09/17 10:00 O2 Sat by Pulse Oximetry (%) 96 03/08/17 20:09 Constitutional: Yes: No Distress, Calm Neck: Yes: Supple Cardiovascular: Yes: Regular Rate and Rhythm Respiratory: Yes: Regular, Diminished Gastrointestinal: Yes: Normal Bowel Sounds, Soft Edema: No Labs: CBC, BMP 03/09/17 06:30 03/09/17 06:30 INR, PTT INR 1.20 (0.82-1.09) H 03/04/17 18:00 Problem List - Problems (1) Displaced fracture of left femoral neck Code(s): S72.002A - FRACTURE OF UNSP PART OF NECK OF LEFT FEMUR, INIT (2) Fall from standing Code(s): W19.XXXA - UNSPECIFIED FALL, INITIAL ENCOUNTER Qualifiers: Encounter type: initial encounter Qualified Code(s): W19.XXXA - Unspecified fall, initial encounter (3) Cerebrovascular accident (CVA) Code(s): I63.9 - CEREBRAL INFARCTION, UNSPECIFIED Qualifiers: CVA mechanism: unspecified Qualified Code(s): I63.9 - Cerebral infarction, unspecified (4) HLD (hyperlipidemia) Code(s): E78.5 - HYPERLIPIDEMIA, UNSPECIFIED Qualifiers: Hyperlipidemia type: pure hypercholesterolemia Qualified Code(s): E78.00 - Pure hypercholesterolemia, unspecified; E78.0 - Pure hypercholesterolemia (5) History of intracranial hemorrhage Code(s): Z86.79 - PERSONAL HISTORY OF OTHER DISEASES OF THE CIRCULATORY SYSTEM (6) Hypothyroid Code(s): E03.9 - HYPOTHYROIDISM, UNSPECIFIED Qualifiers: Hypothyroidism type: unspecified Qualified Code(s): E03.9 - Hypothyroidism, unspecified (7) Labile hypertension Code(s): I10 - ESSENTIAL (PRIMARY) HYPERTENSION (8) History of hemiarthroplasty of left hip Code(s): Z96.642 - PRESENCE OF LEFT ARTIFICIAL HIP JOINT (9) History of surgery for cerebral aneurysm Code(s): Z98.890 - OTHER SPECIFIED POSTPROCEDURAL STATES (10) Seizure disorder Code(s): G40.909 - EPILEPSY, UNSP, NOT INTRACTABLE, WITHOUT STATUS EPILEPTICUS Assessment/Plan 02/15/2017 Echo: Normal LV and RV size and fxn, borderline LAR, mild MR, TR 1. POD#3 left hip hemiarthroplasty for left displaced femoral neck fx stable CV- ibanez 2. 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 Atypical chest pain 4. Hyperlipidemia 5. H/o ICH, hemorrhagic stroke with residual left sided deficits 6. Hypothyroidism 7. Post-op anemia stable post transfusion P: 1. Continue Labetolol 200 qAM, 100 qPM and qhs, Crestor 10 qd, lisinopril 20 qd , and Norvasc 5 qd 2. DVT prophylaxis with Lovenox 40 qd 3. Analgesia as needed, PT as tolerated, monitor Hgb post transfusion 4. Psych input appreciated
[2017-03-09] MEDS: oxyCODONE HCL 5 MG TABLET PO PRN (19:56)
[2017-03-09] MEDS: ACETAMINOPHEN 325 MG TABLET (FP) PO PRN (19:57)
[2017-03-09] MEDS: SODIUM CHLORIDE 1,000 ML IV SCH (21:33)
[2017-03-10] MEDS: oxyCODONE HCL 5 MG TABLET PO PRN ×3 (04:18→20:18)
[2017-03-10] MEDS: ACETAMINOPHEN 325 MG TABLET (FP) PO PRN ×3 (04:19→20:18)
[2017-03-10] MEDS: LABETALOL HCL 100 MG TABLET (FP) PO SCH ×4 (06:03→22:18)
[2017-03-10] MEDS: LEVOTHYROXINE NA 50 MCG TABLET (FP) PO SCH (06:03)
[2017-03-10 08:07] LABS: MCH 28.8 pg (25.7-33.7); MEAN CELL VOLUME 84.7 fl (80-96); MEAN PLT VOLUME 7.3 fl (7.5-11.1); PLATELET COUNT 183 K/MM3 (134-434); RDW 13.8 % (11.6-15.6); WHITE BLOOD COUNT 4.8 K/mm3 (4.0-10.0)
[2017-03-10 08:36] LABS: ANION GAP 8 (8-16); CALCIUM 8.4 mg/dL (8.5-10.1); CO2 27 mmol/L (21-32); COCKROFT - GAULT 78.2595; CREATININE 0.5 mg/dL (0.55-1.02); GLUCOSE,RANDOM 125 mg/dL (74-106); SGPT/ALT 32 U/L (12-78)
[2017-03-10 08:44] LABS: ALBUMIN 2.3 g/dl (3.4-5.0); ALK PHOS 176 U/L (45-117); BILIRUBIN,TOTAL 0.9 mg/dL (0.2-1.0); SGOT/AST 25 U/L (15-37); TOT PROT 4.7 g/dl (6.4-8.2)
[2017-03-10] MEDS: ENOXAPARIN NA (PORCINE) 40 MG/0.4 ML DISP.SYRIN SQ SCH (09:38)
[2017-03-10] MEDS: LISINOPRIL 20 MG TABLET (FP) PO SCH (09:39)
[2017-03-10] MEDS: levETIRAcetam 250 MG TABLET (FP) PO SCH ×2 (09:39→22:18)
[2017-03-10] MEDS: amLODIPine BESYLATE 5 MG TABLET (FP) PO SCH (09:39)
[2017-03-10] MEDS: SERTRALINE HCL 50 MG TABLET (FP) PO SCH (09:39)
--- NOTE | 2017-03-10 11:39 | PN ---
Progress Note (short form) - Note Progress Note: Pt seen, s/p jamari, doing better, no c/o pain, P.T. progressing, can weight bear. AVSS H/H dropped to 8.0/23.6 LLE looks good, NVI, good ROM throughout Incision inspected, CDI, no drainage or fluid accumulation Imp Overall doing well Rec P.T. Transfuse 1 unit PRBC, discussed with Dr Zo SOTO planning
--- NOTE | 2017-03-10 11:42 | PN ---
Progress Note, Physician History of Present Illness: Pt. w/ CP, SOB, abd pain, leg pain (now). Pt. states that is less anxious today. Pt. yesterday was screaming (no pain, no discomfort), refused PO medication; per her nurse today she is better. - Current Medication List Current Medications: Active Medications Acetaminophen (Tylenol -) 650 mg PO Q6H PRN PRN Reason: FOR PAIN LEVEL 6-10 Last Admin: 03/10/17 04:19 Dose: 650 mg Amlodipine Besylate (Norvasc -) 5 mg PO DAILY [facility] Last Admin: 03/10/17 09:39 Dose: 5 mg Enoxaparin Sodium (Lovenox -) 40 mg SQ DAILY [facility] Last Admin: 03/10/17 09:38 Dose: 40 mg Labetalol HCl (Normodyne -) 100 mg PO TID [facility] Last Admin: 03/10/17 06:03 Dose: 100 mg Labetalol HCl (Normodyne -) 100 mg PO DAILY@06 [facility] Last Admin: 03/10/17 06:03 Dose: 100 mg Levetiracetam (Keppra -) 750 mg PO BID [facility] Last Admin: 03/10/17 09:39 Dose: 750 mg Levothyroxine Sodium (Synthroid -) 50 mcg PO DAILY@0700 [facility] Last Admin: 03/10/17 06:03 Dose: 50 mcg Lisinopril (Prinivil) 20 mg PO DAILY [facility] Last Admin: 03/10/17 09:39 Dose: 20 mg Lorazepam (Ativan -) 1 mg PO Q12H PRN PRN Reason: ANXIETY Oxycodone HCl (Roxicodone -) 10 mg PO Q6H PRN PRN Reason: FOR PAIN LEVEL 6-10 Last Admin: 03/10/17 04:18 Dose: 10 mg Sertraline HCl (Zoloft -) 50 mg PO DAILY [facility] Last Admin: 03/10/17 09:39 Dose: 50 mg - Objective Vital Signs: Vital Signs Temperature 98.6 F 03/10/17 08:19 Pulse Rate 64 03/10/17 08:19 Respiratory Rate 18 03/10/17 08:19 Blood Pressure 121/60 03/10/17 08:19 O2 Sat by Pulse Oximetry (%) 97 03/10/17 09:00 Constitutional: Yes: No Distress, Calm Cardiovascular: Yes: Regular Rate and Rhythm, S1, S2 Respiratory: Yes: Regular, CTA Bilaterally. No: Rales Gastrointestinal: Yes: Normal Bowel Sounds, Soft. No: Palpable Mass, Tenderness Edema: No Neurological: Yes: Alert Labs: CBC, BMP 03/10/17 07:00 03/10/17 07:00 INR, PTT INR 1.20 (0.82-1.09) H 03/04/17 18:00 Problem List - Problems (1) Fall from standing Code(s): W19.XXXA - UNSPECIFIED FALL, INITIAL ENCOUNTER Qualifiers: Qualified Code(s): W19.XXXA - Unspecified fall, initial encounter (2) Displaced fracture of left femoral neck Assessment/Plan: s/p ORIF post op day 4. Pt. was seen w Dr. Gomes; surgical site look normal, no obvoius bleed. Code(s): S72.002A - FRACTURE OF UNSP PART OF NECK OF LEFT FEMUR, INIT (3) Cerebrovascular accident (CVA) Code(s): I63.9 - CEREBRAL INFARCTION, UNSPECIFIED Qualifiers: Qualified Code(s): I63.9 - Cerebral infarction, unspecified (4) History of intracranial hemorrhage Code(s): Z86.79 - PERSONAL HISTORY OF OTHER DISEASES OF THE CIRCULATORY SYSTEM (5) History of surgery for cerebral aneurysm Code(s): Z98.890 - OTHER SPECIFIED POSTPROCEDURAL STATES (6) Hypothyroid Code(s): E03.9 - HYPOTHYROIDISM, UNSPECIFIED Qualifiers: Qualified Code(s): E03.9 - Hypothyroidism, unspecified (7) Hyponatremia Assessment/Plan: normal Code(s): E87.1 - HYPO-OSMOLALITY AND HYPONATREMIA (8) Elevated LFTs Assessment/Plan: AST and ALT trending down. Alk Ph. still trending up. Liver US was taken, report not available for reading- likely computer problem. Code(s): R79.89 - OTHER SPECIFIED ABNORMAL FINDINGS OF BLOOD CHEMISTRY (9) Anemia Assessment/Plan: s/p one PRBC Tx Today H/H trending down again; to stop IVF, repeat CBC later- might need PRBC Tx Code(s): D64.9 - ANEMIA, UNSPECIFIED (10) Agitation Code(s): R45.1 - RESTLESSNESS AND AGITATION (11) Depression Code(s): F32.9 - MAJOR DEPRESSIVE DISORDER, SINGLE EPISODE, UNSPECIFIED Assessment/Plan Ortho consult appreciated. Cardio consult for clearance appreciated. Neuro consult appreciated. DVT prophylaxis. Pain control. Post op day 4 Incentive spirometry. Liver US s/p 1 unit PRBC Tx PT Psychiatry consult appreciated. Monitor H/H; case was d/w Dr. Gomes; might need PRBC Tx.
--- NOTE | 2017-03-10 18:19 | PN ---
Progress Note (short form) - Note Progress Note: Chief Complaint: Events noted, notes reviewed, denies any chest pain or dyspnea History of Present Illness: Seen ands examined. Events noted, notes reviewed, denies any chest pain or dyspnea POD#4 post left hip hemiarthroplasty - Current Medication List Current Medications Acetaminophen (Tylenol -) 650 mg PO Q6H PRN PRN Reason: FOR PAIN LEVEL 6-10 Last Admin: 03/10/17 13:10 Dose: 650 mg Amlodipine Besylate (Norvasc -) 5 mg PO DAILY [facility] Last Admin: 03/10/17 09:39 Dose: 5 mg Enoxaparin Sodium (Lovenox -) 40 mg SQ DAILY [facility] Last Admin: 03/10/17 09:38 Dose: 40 mg Labetalol HCl (Normodyne -) 100 mg PO TID [facility] Last Admin: 03/10/17 13:10 Dose: 100 mg Labetalol HCl (Normodyne -) 100 mg PO DAILY@06 [facility] Last Admin: 03/10/17 06:03 Dose: 100 mg Levetiracetam (Keppra -) 750 mg PO BID [facility] Last Admin: 03/10/17 09:39 Dose: 750 mg Levothyroxine Sodium (Synthroid -) 50 mcg PO DAILY@0700 [facility] Last Admin: 03/10/17 06:03 Dose: 50 mcg Lisinopril (Prinivil) 20 mg PO DAILY [facility] Last Admin: 03/10/17 09:39 Dose: 20 mg Lorazepam (Ativan -) 1 mg PO Q12H PRN PRN Reason: ANXIETY Oxycodone HCl (Roxicodone -) 10 mg PO Q6H PRN PRN Reason: FOR PAIN LEVEL 6-10 Last Admin: 03/10/17 13:09 Dose: 10 mg Sertraline HCl (Zoloft -) 50 mg PO DAILY [facility] Last Admin: 03/10/17 09:39 Dose: 50 mg - Objective Vital Signs: Last Vital Signs Temp Pulse Resp BP Pulse Ox 97.6 F 67 18 119/50 97 03/10/17 15:52 03/10/17 15:52 03/10/17 15:52 03/10/17 15:52 03/10/17 09:00 Constitutional: No Distress, Calm Neck: Supple Cardiovascular: S1 S2 Regular Rate and Rhythm Respiratory: Diminished Gastrointestinal: Soft Benign Normal Bowel Sounds Ext: No Edema Labs: CBC, BMP 03/10/17 07:00 Hepatic Panel Total Bilirubin 0.9 mg/dL (0.2-1.0) 03/10/17 07:00 AST 25 U/L (15-37) D 03/10/17 07:00 ALT 32 U/L (12-78) 03/10/17 07:00 Alkaline Phosphatase 176 U/L (45-117) H 03/10/17 07:00 Albumin 2.3 g/dl (3.4-5.0) L 03/10/17 07:00 Assessment/Plan ASSESSMENT: 1. POD#4 post left hip hemiarthroplasty for left displaced femoral neck fracture 2. 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 Atypical chest pain syndrome 4. Hyperlipidemia 5. History of ICH, hemorrhagic stroke with residual left sided deficits 6. Hypothyroidism 7. Post-op anemia stable post transfusion PLAN: 1. Continue Labetolol 2. Continue Norvasc 3. Continue Lisinopril 4. Continue Crestor Rukhsana Zamora MD
[2017-03-10 18:22] LABS: MCH 27.6 pg (25.7-33.7); MCHC 32.4 g/dl (32.0-36.0); MEAN CELL VOLUME 85.1 fl (80-96); MEAN PLT VOLUME 7.4 fl (7.5-11.1); PLATELET COUNT 222 K/MM3 (134-434); RDW 13.8 % (11.6-15.6)
[2017-03-11] MEDS: LORazepam 1 MG TABLET PO PRN (00:32)
[2017-03-11] MEDS: oxyCODONE HCL 5 MG TABLET PO PRN ×3 (02:18→21:57)
[2017-03-11] MEDS: ACETAMINOPHEN 325 MG TABLET (FP) PO PRN ×3 (02:19→21:58)
[2017-03-11] MEDS: LEVOTHYROXINE NA 50 MCG TABLET (FP) PO SCH (06:18)
[2017-03-11] MEDS: LABETALOL HCL 100 MG TABLET (FP) PO SCH ×3 (06:19→21:45)
[2017-03-11 08:20] LABS: MCH 28.8 pg (25.7-33.7); MEAN CELL VOLUME 84.9 fl (80-96); MEAN PLT VOLUME 6.9 fl (7.5-11.1); PLATELET COUNT 224 K/MM3 (134-434); RDW 13.6 % (11.6-15.6); WHITE BLOOD COUNT 4.9 K/mm3 (4.0-10.0)
[2017-03-11 08:56] LABS: ALBUMIN 2.5 g/dl (3.4-5.0); ANION GAP 11 (8-16); CALCIUM 8.6 mg/dL (8.5-10.1); CO2 27 mmol/L (21-32); GLUCOSE,RANDOM 115 mg/dL (74-106); SGOT/AST 25 U/L (15-37)
[2017-03-11 08:59] LABS: ALK PHOS 174 U/L (45-117); BILIRUBIN,TOTAL 1.4 mg/dL (0.2-1.0); COCKROFT - GAULT 97.8265; CREATININE 0.4 mg/dL (0.55-1.02); SGPT/ALT 31 U/L (12-78)
[2017-03-11] MEDS: levETIRAcetam 250 MG TABLET (FP) PO SCH ×2 (10:37→21:44)
[2017-03-11] MEDS: SERTRALINE HCL 50 MG TABLET (FP) PO SCH (10:37)
[2017-03-11] MEDS: ENOXAPARIN NA (PORCINE) 40 MG/0.4 ML DISP.SYRIN SQ SCH (10:37)
[2017-03-11] MEDS: LISINOPRIL 20 MG TABLET (FP) PO SCH (10:37)
[2017-03-11] MEDS: amLODIPine BESYLATE 5 MG TABLET (FP) PO SCH (10:37)
--- NOTE | 2017-03-11 13:34 | PN ---
Progress Note, Physician History of Present Illness: Pt. w/ CP, SOB, abd pain, leg pain (now). Pt. states that was seen by PT today, stood up, now with left hip pain. - Current Medication List Current Medications: Active Medications Acetaminophen (Tylenol -) 650 mg PO Q6H PRN PRN Reason: FOR PAIN LEVEL 6-10 Last Admin: 03/11/17 02:19 Dose: 650 mg Amlodipine Besylate (Norvasc -) 5 mg PO DAILY [facility] Last Admin: 03/11/17 10:37 Dose: 5 mg Enoxaparin Sodium (Lovenox -) 40 mg SQ DAILY [facility] Last Admin: 03/11/17 10:37 Dose: 40 mg Labetalol HCl (Normodyne -) 100 mg PO TID [facility] Last Admin: 03/11/17 06:19 Dose: 100 mg Labetalol HCl (Normodyne -) 100 mg PO DAILY@06 [facility] Last Admin: 03/11/17 06:19 Dose: 100 mg Levetiracetam (Keppra -) 750 mg PO BID [facility] Last Admin: 03/11/17 10:37 Dose: 750 mg Levothyroxine Sodium (Synthroid -) 50 mcg PO DAILY@0700 [facility] Last Admin: 03/11/17 06:18 Dose: 50 mcg Lisinopril (Prinivil) 20 mg PO DAILY [facility] Last Admin: 03/11/17 10:37 Dose: 20 mg Lorazepam (Ativan -) 1 mg PO Q12H PRN PRN Reason: ANXIETY Last Admin: 03/11/17 00:32 Dose: 1 mg Sertraline HCl (Zoloft -) 50 mg PO DAILY [facility] Last Admin: 03/11/17 10:37 Dose: 50 mg - Objective Vital Signs: Vital Signs Temperature 97.5 F L 03/11/17 08:15 Pulse Rate 80 03/11/17 08:15 Respiratory Rate 18 03/11/17 08:15 Blood Pressure 150/75 03/11/17 08:15 O2 Sat by Pulse Oximetry (%) 98 03/11/17 09:00 Constitutional: Yes: No Distress, Calm Cardiovascular: Yes: Regular Rate and Rhythm, S1, S2 Respiratory: Yes: Regular, CTA Bilaterally. No: Rales Gastrointestinal: Yes: Normal Bowel Sounds, Soft. No: Tenderness Edema: No Neurological: Yes: Alert, Oriented Labs: CBC, BMP 03/11/17 07:20 03/11/17 07:20 INR, PTT INR 1.20 (0.82-1.09) H 03/04/17 18:00 Problem List - Problems (1) Fall from standing Code(s): W19.XXXA - UNSPECIFIED FALL, INITIAL ENCOUNTER Qualifiers: Encounter type: initial encounter Qualified Code(s): W19.XXXA - Unspecified fall, initial encounter (2) Displaced fracture of left femoral neck Code(s): S72.002A - FRACTURE OF UNSP PART OF NECK OF LEFT FEMUR, INIT (3) Cerebrovascular accident (CVA) Code(s): I63.9 - CEREBRAL INFARCTION, UNSPECIFIED Qualifiers: CVA mechanism: unspecified Qualified Code(s): I63.9 - Cerebral infarction, unspecified (4) History of intracranial hemorrhage Code(s): Z86.79 - PERSONAL HISTORY OF OTHER DISEASES OF THE CIRCULATORY SYSTEM (5) History of surgery for cerebral aneurysm Code(s): Z98.890 - OTHER SPECIFIED POSTPROCEDURAL STATES (6) Hypothyroid Code(s): E03.9 - HYPOTHYROIDISM, UNSPECIFIED Qualifiers: Hypothyroidism type: unspecified Qualified Code(s): E03.9 - Hypothyroidism, unspecified (7) Hyponatremia Code(s): E87.1 - HYPO-OSMOLALITY AND HYPONATREMIA (8) Elevated LFTs Code(s): R79.89 - OTHER SPECIFIED ABNORMAL FINDINGS OF BLOOD CHEMISTRY (9) Anemia Code(s): D64.9 - ANEMIA, UNSPECIFIED (10) Agitation Code(s): R45.1 - RESTLESSNESS AND AGITATION (11) Depression Code(s): F32.9 - MAJOR DEPRESSIVE DISORDER, SINGLE EPISODE, UNSPECIFIED Assessment/Plan Ortho consult appreciated. Cardio consult for clearance appreciated. Neuro consult appreciated. DVT prophylaxis. Pain control. Post op day 4 Incentive spirometry. Liver US s/p 2 units PRBC Tx PT Psychiatry consult appreciated. LFT are improving- to monitor DC planning
--- NOTE | 2017-03-11 13:43 | PN ---
Progress Note (short form) - Note Progress Note: Chief Complaint: Events noted, notes reviewed, denies any chest pain or dyspnea History of Present Illness: Seen and examined. Events noted, notes reviewed, denies any chest pain or dyspnea POD#5 post left hip hemiarthroplasty - Current Medication List Current Medications Acetaminophen (Tylenol -) 650 mg PO Q6H PRN PRN Reason: FOR PAIN LEVEL 6-10 Last Admin: 03/11/17 02:19 Dose: 650 mg Amlodipine Besylate (Norvasc -) 5 mg PO DAILY [facility] Last Admin: 03/11/17 10:37 Dose: 5 mg Enoxaparin Sodium (Lovenox -) 40 mg SQ DAILY [facility] Last Admin: 03/11/17 10:37 Dose: 40 mg Labetalol HCl (Normodyne -) 100 mg PO TID [facility] Last Admin: 03/11/17 06:19 Dose: 100 mg Labetalol HCl (Normodyne -) 100 mg PO DAILY@06 [facility] Last Admin: 03/11/17 06:19 Dose: 100 mg Levetiracetam (Keppra -) 750 mg PO BID [facility] Last Admin: 03/11/17 10:37 Dose: 750 mg Levothyroxine Sodium (Synthroid -) 50 mcg PO DAILY@0700 [facility] Last Admin: 03/11/17 06:18 Dose: 50 mcg Lisinopril (Prinivil) 20 mg PO DAILY [facility] Last Admin: 03/11/17 10:37 Dose: 20 mg Lorazepam (Ativan -) 1 mg PO Q12H PRN PRN Reason: ANXIETY Last Admin: 03/11/17 00:32 Dose: 1 mg Oxycodone HCl (Roxicodone -) 10 mg PO Q6H PRN PRN Reason: PAIN Sertraline HCl (Zoloft -) 50 mg PO DAILY [facility] Last Admin: 03/11/17 10:37 Dose: 50 mg - Objective Vital Signs: Last Vital Signs Temp Pulse Resp BP Pulse Ox 97.5 F L 80 18 150/75 98 03/11/17 08:15 03/11/17 08:15 03/11/17 08:15 03/11/17 08:15 03/11/17 09:00 Constitutional: No Distress, Calm Neck: Supple Cardiovascular: S1 S2 Regular Rate and Rhythm Respiratory: Diminished Gastrointestinal: Soft Benign Normal Bowel Sounds Ext: No Edema Labs: CBC, BMP 03/11/17 07:20 03/11/17 07:20 Assessment/Plan ASSESSMENT: 1. POD#5 post left hip hemiarthroplasty for left displaced femoral neck fracture 2. 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 Atypical chest pain syndrome, resolved 4. Hyperlipidemia 5. History of ICH, hemorrhagic stroke with residual left sided deficits 6. Hypothyroidism 7. Post-op anemia stable post transfusion PLAN: 1. Continue Labetolol and change to BID dosing 2. Continue Norvasc 3. Continue Lisinopril and increase dose 4. Continue Ovidio Zamora MD
[2017-03-11] MEDS ORDERED: LISINOPRIL 20 MG TABLET (FP) PO SCH (13:44)
[2017-03-12] MEDS: LORazepam 1 MG TABLET PO PRN ×2 (02:43→17:15)
[2017-03-12] MEDS: oxyCODONE HCL 5 MG TABLET PO PRN ×2 (06:04→11:13)
[2017-03-12] MEDS: ACETAMINOPHEN 325 MG TABLET (FP) PO PRN ×2 (06:05→11:14)
[2017-03-12] MEDS: LEVOTHYROXINE NA 50 MCG TABLET (FP) PO SCH (06:06)
[2017-03-12 07:27] LABS: ALBUMIN 2.4 g/dl (3.4-5.0); ANION GAP 10 (8-16); CALCIUM 8.4 mg/dL (8.5-10.1); CO2 29 mmol/L (21-32); COCKROFT - GAULT 97.8265; CREATININE 0.4 mg/dL (0.55-1.02); GLUCOSE,RANDOM 133 mg/dL (74-106); SGOT/AST 22 U/L (15-37); SGPT/ALT 27 U/L (12-78)
[2017-03-12 07:29] LABS: ALK PHOS 183 U/L (45-117); BILIRUBIN,TOTAL 1.4 mg/dL (0.2-1.0); TOT PROT 4.9 g/dl (6.4-8.2)
--- NOTE | 2017-03-12 08:51 | PN ---
Progress Note (short form) - Note Progress Note: Ortho Pt seen and examined s/p left hip jamari pod Selected Entries 03/12/17 06:00 Temperature 97.9 F Pulse Rate 88 Respiratory 16 Rate Blood Pressure 143/83 Laboratory Tests 03/11/17 07:20 WBC 4.9 Hgb 10.1 L D Hct 29.7 L D Plt Count 224 dressing c/d/i, calf soft ,nt a/p PT hip precautions dvt ppx pain control d/c planning
--- NOTE | 2017-03-12 08:53 | PN ---
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 She states that she tripped while using her walker and fell onto both legs. She has severe pain to the L leg, from the upper leg radiating to the groin. Unable to stand due to pain. Denies any other injuries. No LOC, no head injury. XRAY shows left femoral neck fracture. FU today : S/p left hip hemiarthoplasty POD #6- no new neurological issues. seen by psych, pain is somewhat better Home Medications - Allergies Allergies/Adverse Reactions: Allergies Allergy/AdvReac Type Severity Reaction Status Date / Time No Known Allergies Allergy Verified 03/04/17 17:22 - Home Medications Home Medication List Medication Instructions Recorded Confirmed Type Levothyroxine [Synthroid -] 50 mcg PO DAILY 04/19/14 03/04/17 History Amlodipine Besylate [Norvasc -] 5 mg PO DAILY 02/23/17 03/05/17 History Labetalol HCl [Normodyne -] 100 mg PO TID MDD 400 02/23/17 03/04/17 History Levetiracetam [Keppra] 750 mg PO HS 02/23/17 03/05/17 History Lisinopril [Prinivil] 20 mg PO DAILY 02/23/17 03/04/17 History Sertraline HCl 50 mg PO DAILY 02/23/17 03/04/17 History Active Medications Generic Name Dose Route Start Last Admin Trade Name Freq PRN Reason Stop Dose Admin Alprazolam 0.25 mg 03/07/17 13:54 03/07/17 16:26 Xanax - PO 0.25 mg BID PRN Administration ANXIETY Amlodipine Besylate 5 mg 03/08/17 10:00 Norvasc - PO DAILY JUANJO Enoxaparin Sodium 40 mg 03/07/17 10:00 03/07/17 09:11 Lovenox - SQ 40 mg DAILY JUANJO Administration Sodium Chloride 1,000 mls @ 50 mls/hr 03/06/17 20:45 03/07/17 23:14 Normal Saline - IV 50 mls/hr ASDIR JUANJO Administration Labetalol HCl 100 mg 03/06/17 22:00 03/08/17 05:56 Normodyne - PO 100 mg TID JUANJO Administration Labetalol HCl 100 mg 03/07/17 06:00 03/08/17 05:56 Normodyne - PO 100 mg DAILY@06 JUANJO Administration Levetiracetam 750 mg 03/06/17 22:00 03/07/17 21:21 Keppra - PO 750 mg BID JUANJO Administration Levothyroxine Sodium 50 mcg 03/07/17 07:00 03/08/17 05:59 Synthroid - PO 50 mcg DAILY@0700 JUANJO Administration Lisinopril 20 mg 03/07/17 10:00 03/07/17 09:11 Prinivil PO 20 mg DAILY JUANJO Administration Morphine Sulfate 2 mg 03/07/17 13:56 03/08/17 05:54 Morphine Injection - IVPB 2 mg Q3H PRN Administration PAIN Sertraline HCl 50 mg 03/07/17 10:00 03/07/17 09:11 Zoloft - PO 50 mg DAILY JUANJO Administration Physical Exam-Neuro Vital Signs: Vital Signs Temperature 97.9 F 03/12/17 06:00 Pulse Rate 88 03/12/17 06:00 Respiratory Rate 16 03/12/17 06:00 Blood Pressure 143/83 03/12/17 06:00 O2 Sat by Pulse Oximetry (%) 98 03/11/17 21:00 Constitutional: Yes: Well Nourished Neck: Yes: WNL Cardiovascular: Yes: Regular Rate and Rhythm Respiratory: Yes: CTA Bilaterally Labs: CBC, BMP 03/11/17 07:20 03/12/17 06:10 - Neuro Exam Level Of Consciousness: Yes: Alert, Oriented to Person (EOMI, no aphasia, dysrthria, spastic left heimplegia , brisk L >R, left leg flexed (pain); gait not tested) NIH Stroke Scale - Total Score NIH Stroke Scale Score: 0 Assessment/Plan HX of Hemorrhagic CVA (s/p craniotomy, no residual bleed on recent CT , ), with residual left spastic hemiplegia, likely prior hypertensive bleed; S/p oupt rehb /botox LUE, now with fall and left femoral neck fracture - s/p hemiarthroplasty -POD #6; neuro status stable , though spastic hemiplegia continues cont [facility] FU, Dr Sharma [phone]
[2017-03-12] MEDS: levETIRAcetam 250 MG TABLET (FP) PO SCH (10:11)
[2017-03-12] MEDS: LABETALOL HCL 100 MG TABLET (FP) PO SCH (10:12)
[2017-03-12] MEDS: amLODIPine BESYLATE 5 MG TABLET (FP) PO SCH (10:12)
[2017-03-12] MEDS: ENOXAPARIN NA (PORCINE) 40 MG/0.4 ML DISP.SYRIN SQ SCH (10:12)
[2017-03-12] MEDS: SERTRALINE HCL 50 MG TABLET (FP) PO SCH (10:14)
--- NOTE | 2017-03-12 11:50 | PN ---
Progress Note, Physician History of Present Illness: Pt. w/o CP, SOB, abd pain, leg pain (now). Pt. states that has good appetite. Pt. states that still get anxious from time to time. - Current Medication List Current Medications: Active Medications Acetaminophen (Tylenol -) 650 mg PO Q6H PRN PRN Reason: FOR PAIN LEVEL 6-10 Last Admin: 03/12/17 11:14 Dose: 650 mg Amlodipine Besylate (Norvasc -) 5 mg PO DAILY [facility] Last Admin: 03/12/17 10:12 Dose: 5 mg Enoxaparin Sodium (Lovenox -) 40 mg SQ DAILY [facility] Last Admin: 03/12/17 10:12 Dose: 40 mg Labetalol HCl (Normodyne -) 200 mg PO BID [facility] Last Admin: 03/12/17 10:12 Dose: 200 mg Levetiracetam (Keppra -) 750 mg PO BID [facility] Last Admin: 03/12/17 10:11 Dose: 750 mg Levothyroxine Sodium (Synthroid -) 50 mcg PO DAILY@0700 [facility] Last Admin: 03/12/17 06:06 Dose: 50 mcg Lisinopril (Prinivil) 40 mg PO DAILY [facility] Last Admin: 03/12/17 10:11 Dose: 40 mg Lorazepam (Ativan -) 1 mg PO Q12H PRN PRN Reason: ANXIETY Last Admin: 03/12/17 02:43 Dose: 1 mg Oxycodone HCl (Roxicodone -) 10 mg PO Q6H PRN PRN Reason: PAIN Last Admin: 03/12/17 11:13 Dose: 10 mg Sertraline HCl (Zoloft -) 50 mg PO DAILY [facility] Last Admin: 03/12/17 10:14 Dose: 50 mg - Objective Vital Signs: Vital Signs Temperature 97.7 F 03/12/17 08:57 Pulse Rate 84 03/12/17 08:57 Respiratory Rate 18 03/12/17 08:57 Blood Pressure 169/75 03/12/17 08:57 O2 Sat by Pulse Oximetry (%) 98 03/12/17 09:00 Constitutional: Yes: No Distress, Calm Neck: Yes: Thyromegaly Cardiovascular: Yes: S1, S2 Respiratory: Yes: Regular, Other (coarse BS at bases). No: Rales Gastrointestinal: Yes: Normal Bowel Sounds, Soft. No: Palpable Mass, Tenderness Edema: No Labs: CBC, BMP 03/11/17 07:20 03/12/17 06:10 INR, PTT INR 1.20 (0.82-1.09) H 03/04/17 18:00 Problem List - Problems (1) Fall from standing Code(s): W19.XXXA - UNSPECIFIED FALL, INITIAL ENCOUNTER Qualifiers: Encounter type: initial encounter Qualified Code(s): W19.XXXA - Unspecified fall, initial encounter (2) Displaced fracture of left femoral neck Code(s): S72.002A - FRACTURE OF UNSP PART OF NECK OF LEFT FEMUR, INIT (3) Cerebrovascular accident (CVA) Code(s): I63.9 - CEREBRAL INFARCTION, UNSPECIFIED Qualifiers: CVA mechanism: unspecified Qualified Code(s): I63.9 - Cerebral infarction, unspecified (4) History of intracranial hemorrhage Code(s): Z86.79 - PERSONAL HISTORY OF OTHER DISEASES OF THE CIRCULATORY SYSTEM (5) History of surgery for cerebral aneurysm Code(s): Z98.890 - OTHER SPECIFIED POSTPROCEDURAL STATES (6) Hypothyroid Code(s): E03.9 - HYPOTHYROIDISM, UNSPECIFIED Qualifiers: Hypothyroidism type: unspecified Qualified Code(s): E03.9 - Hypothyroidism, unspecified (7) Hyponatremia Code(s): E87.1 - HYPO-OSMOLALITY AND HYPONATREMIA (8) Elevated LFTs Assessment/Plan: AST and ALT trending down. Alk Ph. still trending up. Liver US no obvious cause. GI consult. Code(s): R79.89 - OTHER SPECIFIED ABNORMAL FINDINGS OF BLOOD CHEMISTRY (9) Anemia Code(s): D64.9 - ANEMIA, UNSPECIFIED (10) Agitation Code(s): R45.1 - RESTLESSNESS AND AGITATION (11) Depression Code(s): F32.9 - MAJOR DEPRESSIVE DISORDER, SINGLE EPISODE, UNSPECIFIED Assessment/Plan Ortho consult appreciated. Cardio consult for clearance appreciated. Neuro consult appreciated. DVT prophylaxis. Pain control. Post op day 5 Incentive spirometry. Liver US s/p 2 units PRBC Tx PT Psychiatry consult appreciated. ALk ph. treding up. GI consult. Case was d/w Vasc Sx. (Dr. Zhu) regarding 3.2 cm distal aortic aneurysm; Pt. needs outpt. f/u DC planning
--- NOTE | 2017-03-12 12:06 | PN ---
Progress Note, Physician History of Present Illness: POD#6 left hip hemiarthroplasty, anxious, denies discomfort. - Current Medication List Current Medications: Active Medications Acetaminophen (Tylenol -) 650 mg PO Q6H PRN PRN Reason: FOR PAIN LEVEL 6-10 Last Admin: 03/12/17 11:14 Dose: 650 mg Amlodipine Besylate (Norvasc -) 5 mg PO DAILY [facility] Last Admin: 03/12/17 10:12 Dose: 5 mg Enoxaparin Sodium (Lovenox -) 40 mg SQ DAILY [facility] Last Admin: 03/12/17 10:12 Dose: 40 mg Labetalol HCl (Normodyne -) 200 mg PO BID [facility] Last Admin: 03/12/17 10:12 Dose: 200 mg Levetiracetam (Keppra -) 750 mg PO BID [facility] Last Admin: 03/12/17 10:11 Dose: 750 mg Levothyroxine Sodium (Synthroid -) 50 mcg PO DAILY@0700 [facility] Last Admin: 03/12/17 06:06 Dose: 50 mcg Lisinopril (Prinivil) 40 mg PO DAILY [facility] Last Admin: 03/12/17 10:11 Dose: 40 mg Lorazepam (Ativan -) 1 mg PO Q12H PRN PRN Reason: ANXIETY Last Admin: 03/12/17 02:43 Dose: 1 mg Oxycodone HCl (Roxicodone -) 10 mg PO Q6H PRN PRN Reason: PAIN Last Admin: 03/12/17 11:13 Dose: 10 mg Sertraline HCl (Zoloft -) 50 mg PO DAILY [facility] Last Admin: 03/12/17 10:14 Dose: 50 mg - Objective Vital Signs: Vital Signs Temperature 97.7 F 03/12/17 08:57 Pulse Rate 84 03/12/17 08:57 Respiratory Rate 18 03/12/17 08:57 Blood Pressure 169/75 03/12/17 08:57 O2 Sat by Pulse Oximetry (%) 98 03/12/17 09:00 Constitutional: Yes: No Distress, Calm, Thin Neck: Yes: Supple Cardiovascular: Yes: Regular Rate and Rhythm Respiratory: Yes: Regular, Diminished Gastrointestinal: Yes: Normal Bowel Sounds, Soft Edema: No Labs: CBC, BMP 03/11/17 07:20 03/12/17 06:10 INR, PTT INR 1.20 (0.82-1.09) H 04/ 18:00 Problem List - Problems (1) Displaced fracture of left femoral neck Code(s): S72.002A - FRACTURE OF UNSP PART OF NECK OF LEFT FEMUR, INIT (2) Fall from standing Code(s): W19.XXXA - UNSPECIFIED FALL, INITIAL ENCOUNTER Qualifiers: Encounter type: initial encounter Qualified Code(s): W19.XXXA - Unspecified fall, initial encounter (3) Cerebrovascular accident (CVA) Code(s): I63.9 - CEREBRAL INFARCTION, UNSPECIFIED Qualifiers: CVA mechanism: unspecified Qualified Code(s): I63.9 - Cerebral infarction, unspecified (4) HLD (hyperlipidemia) Code(s): E78.5 - HYPERLIPIDEMIA, UNSPECIFIED Qualifiers: Hyperlipidemia type: pure hypercholesterolemia Qualified Code(s): E78.00 - Pure hypercholesterolemia, unspecified; E78.0 - Pure hypercholesterolemia (5) History of intracranial hemorrhage Code(s): Z86.79 - PERSONAL HISTORY OF OTHER DISEASES OF THE CIRCULATORY SYSTEM (6) Hypothyroid Code(s): E03.9 - HYPOTHYROIDISM, UNSPECIFIED Qualifiers: Hypothyroidism type: unspecified Qualified Code(s): E03.9 - Hypothyroidism, unspecified (7) Labile hypertension Code(s): I10 - ESSENTIAL (PRIMARY) HYPERTENSION (8) History of hemiarthroplasty of left hip Code(s): Z96.642 - PRESENCE OF LEFT ARTIFICIAL HIP JOINT (9) History of surgery for cerebral aneurysm Code(s): Z98.890 - OTHER SPECIFIED POSTPROCEDURAL STATES (10) Seizure disorder Code(s): G40.909 - EPILEPSY, UNSP, NOT INTRACTABLE, WITHOUT STATUS EPILEPTICUS Assessment/Plan 1. POD#6 post left hip hemiarthroplasty for left displaced femoral neck fracture 2. 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 Atypical chest pain syndrome, resolved 4. Hyperlipidemia 5. History of ICH, hemorrhagic stroke with residual left spastic hemiplegia 6. Hypothyroidism 7. Post-op anemia stable post transfusion PLAN: 1. Continue Labetolol 200 BID 2. Continue Norvasc 5 qd 3. Continue Lisinopril 40 qd 4. Continue Crestor 10 qhs 5. PT->SNF 6. DVT prophylaxis
[2017-03-12 14:43] VITALS: BP 123/56; PULSE 64; TEMP 98.3
--- NOTE | 2017-03-12 16:04 | CON.GI ---
Consult Consult Specialty:: GI Referred by:: Dr. Mariano Pathak Reason for Consultation:: Abnormal Liver chemistires - History of Present Illness Chief Complaint: I fell History of Present Illness: 76F s/P fall, sustained Lt. femur Fx and underwent left hip hemiarthroplasty 03/06. She denies abdominal pain. She denies a history of liver disease or alcohol use. She has never had a colonoscopy or upper endoscopy. There is no family history of liver disease or colorectal cancer. ? if she received rocephin and keflex earlier in admission. - History Source History Provided By: Patient Limitations to Obtaining History: No Limitations - Past Medical History [employer]: Yes: Other (Cerebral aneurysm, s/p surgery. 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 (year[place] age 15 History of Recent Travel: No Home Medications - Allergies Allergies/Adverse Reactions: Allergies Allergy/AdvReac Type Severity Reaction Status Date / Time No Known Allergies Allergy Verified 03/04/17 17:22 - Home Medications Home Medications: Ambulatory Orders Levothyroxine [Synthroid -] 50 mcg PO DAILY 04/19/14 Amlodipine Besylate [Norvasc -] 5 mg PO DAILY 02/23/17 Labetalol HCl [Normodyne -] 100 mg PO TID MDD 400 02/23/17 Levetiracetam [Keppra] 750 mg PO HS 02/23/17 Lisinopril [Prinivil] 20 mg PO DAILY 02/23/17 Sertraline HCl 50 mg PO DAILY 02/23/17 Family Disease History - Family Disease History Family Disease History: Other: Father ( 70: unclear cause), Mother ( 66 : [place]), Brother (3 bros: , no cancer), Sister (3 sis: , no cancer), Son ( 1 son: healthy) Other Family History: No family history of colorectal cancer or other GI malignancy Review of Systems - Review of Systems Constitutional: denies: Chills, Fever, Unintentional Wgt. Loss Cardiovascular: denies: Chest Pain Respiratory: denies: Cough, SOB Gastrointestinal: denies: Abdominal Pain, Constipation, Diarrhea, Dysphagia, Melena, Rectal Bleeding Physical Exam-GI Vital Signs: Vital Signs Temperature 98.3 F 03/12/17 14:42 Pulse Rate 64 03/12/17 14:42 Respiratory Rate 18 03/12/17 08:57 Blood Pressure 123/56 03/12/17 14:42 O2 Sat by Pulse Oximetry (%) 98 03/12/17 09:00 Constitutional: Yes: Calm Eyes: No: Sclera Icterus Cardiovascular: Yes: Regular Rate and Rhythm Respiratory: Yes: CTA Bilaterally Gastrointestinal Inspection: No: Distention, Scars ...Auscultate: Yes: Normoactive Bowel Sounds ...Palpate: No: Hepatomegaly, Splenomegaly, Tenderness Edema: No Neurological: Yes: Alert, Oriented Labs: CBC, BMP 03/11/17 07:20 03/12/17 06:10 INR, PTT INR 1.20 (0.82-1.09) H 03/04/17 18:00 Hepatic Panel Total Bilirubin 1.4 mg/dL (0.2-1.0) H 03/12/17 06:10 AST 22 U/L (15-37) 03/12/17 06:10 ALT 27 U/L (12-78) 03/12/17 06:10 Alkaline Phosphatase 183 U/L (45-117) H 03/12/17 06:10 Albumin 2.4 g/dl (3.4-5.0) L 03/12/17 06:10 Imaging - Results Ultrasound: Report Reviewed Problem List - Problems (1) Elevated LFTs Assessment/Plan: Suspect pattern of asymptomatic LFT abnormality may likely secondary to acute fracture with resorption of blood as well. She also received ceftriaxone x 3 doses and ancef x 2 doses earlier in admission that could be contributing. they were normal on admission Monitor Liver chemistries D/C statin in the interim Eliminate potentially hepatotoxic agents as feasible Code(s): R79.89 - OTHER SPECIFIED ABNORMAL FINDINGS OF BLOOD CHEMISTRY
--- NOTE | 2017-03-12 17:24 | DS ---
Physical Examination Vital Signs: Vital Signs Temperature 98.3 F 03/12/17 14:42 Pulse Rate 64 03/12/17 14:42 Respiratory Rate 18 03/12/17 08:57 Blood Pressure 123/56 03/12/17 14:42 O2 Sat by Pulse Oximetry (%) 98 03/12/17 09:00 Findings/Remarks: See Progress Note from today. Time spent for managing pt.s care: over 45 minutes Labs: CBC, BMP 03/11/17 07:20 03/12/17 06:10 Discharge Summary Reason For Visit: LEFT LEG PAIN,DIPLACED FRACTURE Current Active Problems Agitation (Acute) Anemia (Acute) Depression (Acute) Displaced fracture of left femoral neck (Acute) Elevated LFTs (Acute) Fall from standing (Acute) History of hemiarthroplasty of left hip (Acute) History of surgery for cerebral aneurysm (Acute) Hyponatremia (Acute) Labile hypertension (Acute) Leg pain, left (Acute) Pre-operative cardiovascular examination (Acute) Seizure disorder (Acute) Hospital Course: Pt. came to ER s/p fall, left hip fx; pt was under treatment for UTI at home. Pt. was admitted, seen by Ortho, had ORIF of Left hip. Pt.'s LFT were elevated, trending down, had liver US (significant for 3.2 distal aortic aneurysm) seen by GI. Pt with anemia, worse post-op, mineral mixer PRBC (total of 2 units). Case was d/w Dr. Felix Zhu for distal aortic aneurysm, outpatient f/u was recommended. To DC to Rehab. Condition: Fair - Instructions Diet, Activity, Other Instructions: Low salt, low cholesterol. Monitor CBC, CMP. Crestor to be restarted as LFT's are improving Referrals: Vinicio Chavez MD [Staff Physician] - Mariano Pathak MD [Staff Physician] - (1-2 weeks after Rehab DC) Jordy Zhu MD [Staff Physician] - (2-4 weeks after Rehab DC) Disposition: INTERMEDIATE FACILITY - Home Medications Comprehensive Discharge Medication List: Ambulatory Orders Levothyroxine [Synthroid -] 50 mcg PO DAILY 04/19/14 Amlodipine Besylate [Norvasc -] 5 mg PO DAILY 02/23/17 Labetalol HCl [Normodyne -] 100 mg PO TID MDD 400 02/23/17 Levetiracetam [Keppra] 750 mg PO HS 02/23/17 Lisinopril [Prinivil] 20 mg PO DAILY 02/23/17 Sertraline HCl 50 mg PO DAILY 02/23/17
[2017-03-12] MEDS ORDERED: ROSUVASTATIN CA 10 MG TABLET (FP) PO SCH (22:00)
== END 2017-03-12 18:56 | DRG 470 ==
LOC: JER 17:18 → JERBED 20:20 → J6S 23:53
PROVIDERS: ADMIT Specialist; ATTEND Specialist
PROC: 0SRS0JZ Replacement of Left Hip Joint, Femoral Surface with Synthetic Substitute, Open Approach (ICD-10-PCS; principal; 2017-03-06 12:00)
PROC: 30233N1 Transfusion of Nonautologous Red Blood Cells into Peripheral Vein, Percutaneous Approach (ICD-10-PCS; 2017-03-08)
DX: S72.002A Fracture of unspecified part of neck of left femur, initial encounter for closed fracture (principal); G81.14 Spastic hemiplegia affecting left nondominant side; E87.1 Hypo-osmolality and hyponatremia; D64.9 Anemia, unspecified; G40.909 Epilepsy, unspecified, not intractable, without status epilepticus; I10 Essential (primary) hypertension; F32.9 Major depressive disorder, single episode, unspecified; E03.9 Hypothyroidism, unspecified; R79.89 Other specified abnormal findings of blood chemistry; R45.1 Restlessness and agitation; E78.5 Hyperlipidemia, unspecified; W01.0XXA Fall on same level from slipping, tripping and stumbling without subsequent striking against object, initial encounter; Y93.89 Activity, other specified; Y92.89 Other specified places as the place of occurrence of the external cause; Y99.8 Other external cause status
CPT/HCPCS: 36415; 36430; 71010-TC; 73502-TC-LT; 73523-TC; 73552-TC-LT; 76705-TC; 80048; 80053; 81003; 85025; 85027; 85610; 86850; 86900; 86901; 86922; 87086; 88305-TC; 88311-TC; 93005; 93010; 93880-TC; 94760; 97116-GP; 97162-PG; 99285-25; P9038; P9058

== ENCOUNTER 2017-05-21 11:17 | Observation (INO) | payer OTHER, BC ==
[2017-05-21 11:34] VITALS: BMI 17.4
--- NOTE | 2017-05-21 12:09 | PDOC ---
Attending Attestation - Resident Resident Name: VicCaleb - ED Attending Attestation I have performed the following: I have examined & evaluated the patient, The case was reviewed & discussed with the resident, I agree w/resident's findings & plan, Exceptions are as noted - HPI HPI: 05/21/17 12:12 76yo F hx cerebral aneurysm surgery 2009, hemorrhagic cva 2016 w residual L sided weakness, recent femoral neck fracture s/p ORIF, HTN, HL p/w weakness . here with MEDICAID SERVICE COORDINATOR and son. SALAS says sunday, pt was crying and complaining of SOB which resolved that same night. On Sunday and Sunday, MEDICAID SERVICE COORDINATOR states pt has been more lethargic and her BPs have been high to 180s systolic. They called Dr. Dewey (cards) who told aid to hold labetalol if HR less than 60. Pt takes labetalol 200mg BID for BP, however HR has been less than 60 and so SALAS has been holding doses intermittently. This morning, MEDICAID SERVICE COORDINATOR noted that the patient was more lethargic and activated EMS - upon EMS arrival pt perked up per the aide. No fevers, chills, CP, SOB, abd pain, N/V/D, dysuria, LE edema. - Physicial Exam PE: 05/21/17 12:21 GENERAL: Awake, alert, and fully oriented, in no acute distress HEAD: No signs of trauma EYES: PERRLA, EOMI, sclera anicteric, conjunctiva clear ENT: Auricles normal inspection, hearing grossly normal, nares patent, oropharynx clear without exudates. Moist mucosa NECK: Normal ROM, supple, no lymphadenopathy, JVD, or masses LUNGS: Breath sounds equal, clear to auscultation bilaterally. No wheezes, and no crackles HEART: Regular rate and rhythm, normal S1 and S2, no murmurs, rubs or gallops ABDOMEN: Soft, nontender, normoactive bowel sounds. No guarding, no rebound. No masses EXTREMITIES: Normal range of motion, no edema. No clubbing or cyanosis. No cords, erythema, or tenderness NEUROLOGICAL: Normal speech, cranial nerves intact, +LUE and LLE flaccid (at baseline), 5/5 strength in RUE and RLE. normal sensation to light touch in all 4 extremities, normal cerebellar exam, gait deferred, normal reflexes and tone SKIN: Warm, Dry, normal turgor, no rashes or lesions noted. 3mm fibronodular papule in rostral gluteal cleft with no induration or drainage - Medical Decision Making 05/21/17 14:13 76-year-old female with multiple medical problems presents with generalized weakness for 3 days that was preceded by shortness of breath 4 days ago. Patient 's aide notes that the patient goes in and out of episodes where she is less responsive but does not lose consciousness. She does note that during those episodes her heart rate tends to be lower (50s). Exam with baseline flaccid left upper and left lower extremities but otherwise not concerning. Presentation is concerning for symptomatic bradycardia due to increased labetalol dose. Also on the differential as a cause for her generalized weakness is infection specifically UTI or pneumonia versus metabolic versus cardiac etiology. -labs -CXR -UA -CTH -call PMD -reassess 05/21/17 18:11 Work up reveals probable UTI. Given [facility]'s report of patient frequently having episodes where she is difficult to arouse, will obs patient for 23 hours given these concerning episodes.
--- NOTE | 2017-05-21 12:28 | PDOC ---
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 Pt's aid reports that pt had an episode of SOB 2 days ago which resolved spontaneously. Following that, the aid reports that the pt has been lethargic with decreased alertness. She called Dr. Pathak who stated that pt should be given labetalol 200mg in morning , 100mg in afternoon, and 100mg at night, not to be given if HR<60. The aid states that she gave the pt one dose of 100mg yesterday, and one does this am after a reading of 185/75 w/ a HR of 61. This brought the BP down to 116/53. Pt denies blurry vision, chest pain, SOB, abdominal pain, nausea or emesis, dysuria , any new motor or sensory deficits. 05/21/17 12:33 Past History - Past Medical History Allergies/Adverse Reactions: Allergies Allergy/AdvReac Type Severity Reaction Status Date / Time No Known Allergies Allergy Verified 03/04/17 17:22 Home Medications: Ambulatory Orders Levothyroxine [Synthroid -] 50 mcg PO DAILY 04/19/14 Amlodipine Besylate [Norvasc -] 5 mg PO DAILY 02/23/17 Levetiracetam [Keppra] 750 mg PO HS 02/23/17 Sertraline HCl 50 mg PO DAILY 02/23/17 Labetalol HCl [Normodyne -] 100 mg PO DAILY #30 tablet MDD 1 03/12/17 Lisinopril [Prinivil] 20 mg PO DAILY #30 tablet MDD 1 03/12/17 Lorazepam [Ativan] 1 mg PO Q12H PRN #30 tablet MDD 2 03/12/17 CVA: Yes (brain aneurysm/ lt sided weakness) HTN: Yes Hypercholesterolemia: Yes Thyroid Disease: Yes (hypo) Comment:: 05/21/17 12:28 PMH: HLD, hypothryoid PSH: hemiarthroplasty Allergies: NKDA Social Hx: NKDA 08/21/17 12:29 - Surgical History Neurologic Surgery: Yes (aneurysm repair) - Immunization History Immunization Up to Date: Yes - Psycho/Social/Smoking Cessation Hx Anxiety: No Suicidal Ideation: No Smoking History: Never smoked Have you smoked in the past 12 months: No Information on smoking cessation initiated: No Hx Alcohol Use: No Drug/Substance Use Hx: No Substance Use Type: None Hx Substance Use Treatment: No Review of Systems - Review of Systems Comments:: GENERAL: No fever, chills, night sweats, + weakness. HEAD, EYES, EARS, NOSE AND THROAT: No change in vision, ear pain, or sore throat CARDIOVASCULAR: No chest pain or palpitations RESPIRATORY: No cough, wheezing, or hemoptysis. GASTROINTESTINAL: No nausea, vomiting, diarrhea, constipation, or blood in the stool. GENITOURINARY: No dysuria, frequency, or urgency MUSCULOSKELETAL: No joint or muscle swelling or pain. SKIN: 3mm pimple on superior aspect of gluteal cleft, no fluctuance, not warm to touch ENDOCRINE: No increased thirst. No abnormal weight change NEUROLOGIC: No headache, dizziness, loss of consciousness, or change in strength /sensation. *Physical Exam - Vital Signs Last Vital Signs Temp Pulse Resp BP Pulse Ox 97.4 F L 53 L 20 194/76 99 05/21/17 11:28 05/21/17 11:28 05/21/17 11:28 05/21/17 11:28 05/21/17 11:28 - Physical Exam Comments: 05/21/17 12:32 GENERAL: Awake, alert, and fully oriented, in no acute distress HEAD: normocephalic, atraumatic HEENT: PERRLA, EOMI NECK: Normal ROM, supple, no lymphadenopathy, JVD, or masses HEART: bradycardic, normal rhythm, normal S1 and S2, no murmurs, rubs or gallops , peripheral pulses normal and equal bilaterally. LUNGS: CTAB, no wheezing, no rales ABDOMEN: Soft, minimally tender in epigastric region, nondistended, normoactive bowel sounds. No guarding, no rebound. No masses EXTREMITIES: no LE edema. L arm and L leg have significant weakness SKIN: Warm, dry, no rashes or lesions noted. NEUROLOGICAL: Cranial nerves II through XII grossly intact. 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 CBC: wnl CMP: wnl UA: +nitrites, many bacteria, <1wbc CXR: normal EKG: NSR with bradycardia TSH: normal BNP: [address]: chronic frontal/temporal encephalomalacia Spoke with Dr. Diamond who agreed to admit pt for observation. 05/21/17 18:14 *DC/Admit/Observation/Transfer Diagnosis at time of Disposition: Lethargy - Discharge Dispostion Condition at time of disposition: Stable Admit: Yes Decision to Admit order Date/Time: 05/21/17 18:16 - Attestations Physician Attestion: 05/21/17 18:16 I, Dr. Caleb Ho, attest that this document has been prepared under my direction and personally reviewed by me in its entirety. I further attest, that it accurately reflects all work, treatment, procedures and medical decision -making performed by me.
[2017-05-21 13:28] LABS: BASOPHIL 0.6 % (0-2.0); EOSINOPHIL 0.7 % (0-4.5); MCH 28.7 pg (25.7-33.7); MCHC 33.8 g/dl (32.0-36.0); MEAN PLT VOLUME 7.9 fl (7.5-11.1); PLATELET COUNT 213 K/MM3 (134-434); RDW 14.3 % (11.6-15.6); WHITE BLOOD COUNT 4.9 K/mm3 (4.0-10.0)
[2017-05-21 13:32] LABS: URINE APPEARANCE CLOUDY; URINE BILIRUBIN NEGATIVE (NEGATIVE); URINE BLOOD NEGATIVE (NEGATIVE); URINE COLOR YELLOW; URINE GLUCOSE (UA) NEGATIVE (NEGATIVE); URINE KETONE NEGATIVE (NEGATIVE); URINE LEUK ESTERASE NEGATIVE (NEGATIVE); URINE NITRITE POSITIVE (NEGATIVE); URINE PROTEIN NEGATIVE (NEGATIVE); URINE UROBILINOGEN NEGATIVE mg/dL (0.2-1.0)
[2017-05-21 13:50] LABS: ALBUMIN 4.1 g/dl (3.4-5.0); ALK PHOS 101 U/L (45-117); ANION GAP 9 (8-16); BILIRUBIN,TOTAL 0.6 mg/dL (0.2-1.0); CALCIUM 9.3 mg/dL (8.5-10.1); CO2 29 mmol/L (21-32); CREATININE 0.5 mg/dL (0.55-1.02); GLUCOSE,RANDOM 106 mg/dL (74-106); SGOT/AST 11 U/L (15-37); SGPT/ALT 15 U/L (12-78); TOT PROT 6.5 g/dl (6.4-8.2)
[2017-05-21 13:54] LABS: URINE BACTERIA MANY /hpf (NONE SEEN); URINE RBC 1 /hpf (0-3); URINE WBC <1 /hpf (3-5)
[2017-05-21 13:56] LABS: TROPONIN I < 0.02 ng/ml (0.00-0.05)
[2017-05-21 14:00] LABS: CPK 77 IU/L (26-192)
[2017-05-21] MEDS ORDERED: ACETAMINOPHEN 325 MG TABLET (FP) PO ONE (14:16)
[2017-05-21 14:41] LABS: THYROID STIMULATING HORMONE 1.61 uIU/ml (0.358-3.74)
[2017-05-21] MEDS ORDERED: ACETAMINOPHEN 325 MG TABLET (FP) ONE (14:57)
[2017-05-21] MEDS ORDERED: LABETALOL HCL 200 MG TABLET (FP) PO ONE (17:55)
[2017-05-21] MEDS ORDERED: CEPHALEXIN MONOHYDRATE 500 MG CAPSULE (UD) PO ONE (17:56)
[2017-05-21] MEDS ORDERED: CEPHALEXIN MONOHYDRATE 250 MG CAPSULE (FP) ONE (18:16)
[2017-05-21] MEDS ORDERED: LABETALOL HCL 100 MG TABLET (FP) ONE (18:16)
[2017-05-21] MEDS ORDERED: morphine CARPU-JECT 2 MG/1 ML DISP.SYRIN IVPUSH ONE (18:19)
[2017-05-21] MEDS ORDERED: morphine CARPU-JECT 2 MG/1 ML DISP.SYRIN ONE (18:32)
[2017-05-21 18:35] LABS: CPK 40 IU/L (26-192)
[2017-05-21 18:36] LABS: TROPONIN I < 0.02 ng/ml (0.00-0.05)
[2017-05-21] MEDS ORDERED: ONDANSETRON 4 MG/2 ML VIAL IVPUSH ONE (18:53)
[2017-05-21] MEDS ORDERED: ONDANSETRON 4 MG/2 ML VIAL ONE (19:07)
--- NOTE | 2017-05-21 19:56 | HP ---
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 Pt's aid reports that pt had an episode of SOB 2 days ago which resolved spontaneously. Following that, the aid reports that the pt has been lethargic with decreased alertness. 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 [employer] History of Recent Travel: No Home Medications - Allergies Allergies/Adverse Reactions: Allergies Allergy/AdvReac Type Severity Reaction Status Date / Time No Known Allergies Allergy Verified 03/04/17 17:22 - Home Medications Home Medications: Ambulatory Orders Levothyroxine [Synthroid -] 50 mcg PO DAILY 04/19/14 Amlodipine Besylate [Norvasc -] 5 mg PO DAILY 02/23/17 Levetiracetam [Keppra] 750 mg PO HS 02/23/17 Sertraline HCl 50 mg PO DAILY 02/23/17 Labetalol HCl [Normodyne -] 100 mg PO DAILY #30 tablet MDD 1 03/12/17 Lisinopril [Prinivil] 20 mg PO DAILY #30 tablet MDD 1 03/12/17 Lorazepam [Ativan] 1 mg PO Q12H PRN #30 tablet MDD 2 03/12/17 Family Disease History - Family Disease History Family Disease History: Other: Father ( 70: unclear cause), Mother ( 66 : [place]), Brother (3 bros: , no cancer), Sister (3 sis: , no cancer), Son ( 1 son: healthy) Physical Examination Vital Signs: Vital Signs Temperature 97.4 F L 05/21/17 11:28 Pulse Rate 58 L 05/21/17 19:35 Respiratory Rate 16 05/21/17 19:35 Blood Pressure 158/62 05/21/17 19:35 O2 Sat by Pulse Oximetry (%) 97 05/21/17 17:33 Constitutional: Yes: No Distress HENT: Yes: Atraumatic Neck: Yes: Supple Cardiovascular: Yes: Regular Rate and Rhythm Respiratory: Yes: CTA Bilaterally Gastrointestinal: Yes: Normal Bowel Sounds Extremities: Yes: WNL Neurological: Yes: Alert, Oriented Problem List - Problems (1) Lethargy Assessment/Plan: PT DOING WELL WANTS TO GO HOME Code(s): R53.83 - OTHER FATIGUE (2) Cerebrovascular accident (CVA) Assessment/Plan: RESIDUAL LEFT SIDED WEAKNESS DOING PT PER PATIENT Code(s): I63.9 - CEREBRAL INFARCTION, UNSPECIFIED Qualifiers: CVA mechanism: other Qualified Code(s): I63.8 - Other cerebral infarction (3) HLD (hyperlipidemia) Assessment/Plan: ON MEDS STABLE Code(s): E78.5 - HYPERLIPIDEMIA, UNSPECIFIED Qualifiers: Hyperlipidemia type: pure hypercholesterolemia Qualified Code(s): E78.00 - Pure hypercholesterolemia, unspecified; E78.0 - Pure hypercholesterolemia (4) History of hemiarthroplasty of left hip Assessment/Plan: PTHERAPY WILL ORDER Code(s): Z96.642 - PRESENCE OF LEFT ARTIFICIAL HIP JOINT (5) UTI (urinary tract infection) Assessment/Plan: CXS PENDING ON IV ABX ID CONSULT Code(s): N39.0 - URINARY TRACT INFECTION, SITE NOT SPECIFIED Qualifiers: Urinary tract infection type: acute cystitis Hematuria presence: without hematuria Qualified Code(s): N30.00 - Acute cystitis without hematuria Assessment/Plan Laboratory Tests 05/21/17 05/21/17 05/21/17 12:26 12:26 12:31 WBC 4.9 RBC 4.26 D Hgb 12.3 D Hct 36.2 D MCV 85.0 MCH 28.7 MCHC 33.8 RDW 14.3 Plt Count 213 MPV 7.9 D Neutrophils % 70.0 Lymphocytes % 23.6 D Monocytes % 5.1 Eosinophils % 0.7 Basophils % 0.6 Sodium 133 L Potassium 4.4 Chloride 95 L Carbon Dioxide 29 Anion Gap 9 BUN 14 D Creatinine 0.5 L D Creat Clearance w eGFR > 60 Random Glucose 106 D Calcium 9.3 Total Bilirubin 0.6 D AST 11 L D ALT 15 D Alkaline Phosphatase 101 D Creatine Kinase 77 Troponin I < 0.02 B-Natriuretic Peptide 350.97 Total Protein 6.5 D Albumin 4.1 D TSH 1.61 Urine Color Urine Appearance Urine pH Ur Specific [place] Urine Protein Urine Glucose (UA) Urine Ketones Urine Blood Urine Nitrite Urine Bilirubin Urine Urobilinogen Ur Leukocyte Esterase Urine RBC Urine WBC Ur Epithelial Cells Urine Bacteria 05/21/17 05/21/17 05/21/17 12:42 13:20 17:48 WBC RBC Hgb Hct MCV MCH MCHC RDW Plt Count MPV Neutrophils % Lymphocytes % Monocytes % Eosinophils % Basophils % Sodium Potassium Chloride Carbon Dioxide Anion Gap BUN Creatinine Creat Clearance w eGFR Random Glucose Calcium Total Bilirubin AST ALT Alkaline Phosphatase Creatine Kinase Cancelled 40 Troponin I Cancelled < 0.02 B-Natriuretic Peptide Cancelled Total Protein Albumin TSH Urine Color Yellow Urine Appearance Cloudy Urine pH 8.0 Ur Specific [place] 1.015 Urine Protein Negative Urine Glucose (UA) Negative Urine Ketones Negative Urine Blood Negative Urine Nitrite Positive Urine Bilirubin Negative Urine Urobilinogen Negative Ur Leukocyte Esterase Negative Urine RBC 1 Urine WBC <1 Ur Epithelial Cells Rare Urine Bacteria Many Active Medications Generic Name Dose Route Start Last Admin Trade Name Freq PRN Reason Stop Dose Admin Amlodipine Besylate 5 mg 05/22/17 10:00 Norvasc - PO DAILY JUANJO Levetiracetam 750 mg 05/21/17 22:00 Keppra - PO HS JUANJO Levothyroxine Sodium 50 mcg 05/22/17 07:00 Synthroid - PO ACBK JUANJO Lisinopril 20 mg 05/22/17 10:00 Prinivil PO DAILY JUANJO Sertraline HCl 50 mg 05/22/17 10:00 Zoloft - PO DAILY JUANJO
[2017-05-21] MEDS: levETIRAcetam 250 MG TABLET (FP) PO SCH (21:52)
[2017-05-22] MEDS: LEVOTHYROXINE NA 50 MCG TABLET (FP) PO SCH (06:07)
--- NOTE | 2017-05-22 09:58 | CON.CARD ---
Consult Consult Specialty:: Cardiology Referred by:: Dr. Diamond (Patient has seen Dr. Pathak) Reason for Consultation:: Cardiac evaluation - History of Present Illness Chief Complaint: Generalized weakness History of Present Illness: Patient is a 76 year old female with history of hemorrhagic CVA with left sided weakness, history of cerebral aneurysm, ICH post craniotomy, in addition, hypertension, hypercholesterolemia, hypothyroidism and anxiety disorder. She was recently seen after a fall resulting in left hip fracture s/p left hemiarthroplasty (March 2017). She presents with generalized weakness for past few days and also reports shortness of breath which has resolved. She denies chest pain or palpitations. She denies paroxysmal nocturnal dyspnea or orthopnea. She denies fever, but complains of chills. She denies headache or lightheadedness. Patient was found to be lethargic by her aide. Cardiology consultation was called for further evaluation. 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 [email or web address] History of Recent Travel: No Home Medications - Allergies Allergies/Adverse Reactions: Allergies Allergy/AdvReac Type Severity Reaction Status Date / Time No Known Allergies Allergy Verified 03/04/17 17:22 - Home Medications Home Medications: Ambulatory Orders Levothyroxine [Synthroid -] 50 mcg PO DAILY 04/19/14 Amlodipine Besylate [Norvasc -] 5 mg PO DAILY 02/23/17 Levetiracetam [Keppra] 750 mg PO HS 02/23/17 Sertraline HCl 50 mg PO DAILY 02/23/17 Labetalol HCl [Normodyne -] 100 mg PO DAILY #30 tablet MDD 1 03/12/17 Lisinopril [Prinivil] 20 mg PO DAILY #30 tablet MDD 1 03/12/17 Lorazepam [Ativan] 1 mg PO Q12H PRN #30 tablet MDD 2 03/12/17 Family Disease History - Family Disease History Family Disease History: Other: Father ( 70: unclear cause), Mother ( 66 : [place]), Brother (3 bros: , no cancer), Sister (3 sis: , no cancer), Son ( 1 son: healthy) Review of Systems - Review of Systems Constitutional: reports: Chills. denies: Fever Cardiovascular: reports: Shortness of Breath. denies: Chest Pain, Palpitations Respiratory: reports: SOB. denies: Cough, Hemoptysis, Orthopnea, PND, Wheezing Gastrointestinal: denies: Abdominal Pain, Constipation, Diarrhea, Melena, Nausea , Rectal Bleeding, Vomiting Genitourinary: denies: Dysuria Neurological: reports: Weakness. denies: Dizziness, Headache, Seizure, Syncope Vital Signs: Vital Signs Temperature 98.1 F 05/22/17 06:00 Pulse Rate 56 L 05/22/17 06:00 Respiratory Rate 19 05/22/17 06:00 Blood Pressure 140/62 05/22/17 06:00 O2 Sat by Pulse Oximetry (%) 99 05/22/17 03:51 Neck: Yes: Supple Respiratory: Yes: Diminished Gastrointestinal: Yes: Normal Bowel Sounds, Soft. No: Tenderness Cardiovascular: Yes: Regular Rate and Rhythm JVD: No Carotid Bruit: No PMI: Non-Displaced Heart Sounds: Yes: S1, S2 Edema: No ...Motor Strength: LUE (diminished), LLE (diminished) - Other Data Labs, Other Data: CBCD WBC 4.9 K/mm3 (4.0-10.0) 05/21/17 12:26 RBC 4.26 M/mm3 (3.60-5.2) D 05/21/17 12:26 Hgb 12.3 GM/dL (10.7-15.3) D 05/21/17 12:26 Hct 36.2 % (32.4-45.2) D 05/21/17 12:26 MCV 85.0 fl (80-96) 05/21/17 12:26 MCHC 33.8 g/dl (32.0-36.0) 05/21/17 12:26 RDW 14.3 % (11.6-15.6) 05/21/17 12:26 Plt Count 213 K/MM3 (134-434) 05/21/17 12:26 MPV 7.9 fl (7.5-11.1) D 05/21/17 12:26 CMP Sodium 133 mmol/L (136-145) L 05/21/17 12:26 Potassium 4.4 mmol/L (3.5-5.1) 05/21/17 12:26 Chloride 95 mmol/L (98-107) L 05/21/17 12:26 Carbon Dioxide 29 mmol/L (21-32) 05/21/17 12:26 Anion Gap 9 (8-16) 05/21/17 12:26 BUN 14 mg/dL (7-18) D 05/21/17 12:26 Creatinine 0.5 mg/dL (0.55-1.02) L D 05/21/17 12:26 Creat Clearance w eGFR > 60 (>60) 05/21/17 12:26 Random Glucose 106 mg/dL (74-106) D 05/21/17 12:26 Calcium 9.3 mg/dL (8.5-10.1) 05/21/17 12:26 Total Bilirubin 0.6 mg/dL (0.2-1.0) D 05/21/17 12:26 AST 11 U/L (15-37) L D 05/21/17 12:26 ALT 15 U/L (12-78) D 05/21/17 12:26 Alkaline Phosphatase 101 U/L (45-117) D 05/21/17 12:26 Total Protein 6.5 g/dl (6.4-8.2) D 05/21/17 12:26 Albumin 4.1 g/dl (3.4-5.0) D 05/21/17 12:26 CARDIAC ENZYMES Creatine Kinase 40 IU/L (26-192) 05/21/17 17:48 Troponin I < 0.02 ng/ml (0.00-0.05) 05/21/17 17:48 Sinus bradycardia with no ST-T abnormality Imaging - Results Chest X-ray: Report Reviewed (Unremarkable) Cat Scan: Report Reviewed (Head CT reveals no hemorrhage, right frontal and temporal encephalomalacia) EKG: Report Reviewed Problem List - Problems (1) Lethargy Code(s): R53.83 - OTHER FATIGUE (2) Cerebrovascular accident (CVA) Code(s): I63.9 - CEREBRAL INFARCTION, UNSPECIFIED Qualifiers: CVA mechanism: other Qualified Code(s): I63.8 - Other cerebral infarction (3) HLD (hyperlipidemia) Code(s): E78.5 - HYPERLIPIDEMIA, UNSPECIFIED Qualifiers: Hyperlipidemia type: pure hypercholesterolemia (4) History of hemiarthroplasty of left hip Code(s): Z96.642 - PRESENCE OF LEFT ARTIFICIAL HIP JOINT (5) History of intracranial hemorrhage Code(s): Z86.79 - PERSONAL HISTORY OF OTHER DISEASES OF THE CIRCULATORY SYSTEM (6) History of surgery for cerebral aneurysm Code(s): Z98.890 - OTHER SPECIFIED POSTPROCEDURAL STATES (7) Hypothyroid Code(s): E03.9 - HYPOTHYROIDISM, UNSPECIFIED Qualifiers: Hypothyroidism type: unspecified Qualified Code(s): E03.9 - Hypothyroidism, unspecified (8) Labile hypertension Code(s): I10 - ESSENTIAL (PRIMARY) HYPERTENSION (9) Seizure disorder Code(s): G40.909 - EPILEPSY, UNSP, NOT INTRACTABLE, WITHOUT STATUS EPILEPTICUS Assessment/Plan 1. Generalized weakness 2. 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 Sinus bradycardia 4. Hypercholesterolemia 5, History of ICH - hemorrhagic CVA with residual left sided weakness 6. Hypothyroidism PLAN: 1. Continue Noravasc and Lisinopril and uptitrate according to BP 2. Hold Labetalol in view of sinus bradycardia 3. Check office records - patient sees Dr. Funk. Restart statin if clinically indicated (patient was on Crestor in the past) Follow fasting lipid panel. LFTs are normal at this time 4. Consider DVT prophylaxis 5. Transthoracic echocardiography if not done recently. Will check office record and perhaps can be done as outpatient Further plans are to follow Enoch Shen MD
[2017-05-22] MEDS ORDERED: amLODIPine BESYLATE 5 MG TABLET (FP) PO SCH (10:00)
[2017-05-22] MEDS: SERTRALINE HCL 50 MG TABLET (FP) PO SCH (10:04)
[2017-05-22] MEDS: LISINOPRIL 20 MG TABLET (FP) PO SCH (10:04)
[2017-05-22] MEDS ORDERED: ACETAMINOPHEN 325 MG TABLET (FP) ONE (12:53)
[2017-05-22] MEDS: ACETAMINOPHEN 325 MG TABLET (FP) PO PRN ×2 (12:57→21:08)
[2017-05-22] MEDS: CEFTRIAXONE 1 GM in DEXTROSE 5%-WATER - 50 ML IVPB SCH ×2 (13:08→13:10)
[2017-05-22] MEDS: CEFTRIAXONE 50 ML IVPB SCH (13:09)
--- NOTE | 2017-05-22 16:21 | CONSULT ---
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 history taken from her aide and her son. seems patients blood pressure was fluctuating and patient became hypotensive and then hypertensive. 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 Travel: No Home Medications - Allergies Allergies/Adverse Reactions: Allergies Allergy/AdvReac Type Severity Reaction Status Date / Time No Known Allergies Allergy Verified 03/04/17 17:22 - Home Medications Home Medications: Ambulatory Orders Levothyroxine [Synthroid -] 50 mcg PO DAILY 04/19/14 Amlodipine Besylate [Norvasc -] 5 mg PO DAILY 02/23/17 Levetiracetam [Keppra] 750 mg PO HS 02/23/17 Sertraline HCl 50 mg PO DAILY 02/23/17 Labetalol HCl [Normodyne -] 100 mg PO DAILY #30 tablet MDD 1 03/12/17 Lisinopril [Prinivil] 20 mg PO DAILY #30 tablet MDD 1 03/12/17 Lorazepam [Ativan] 1 mg PO Q12H PRN #30 tablet MDD 2 03/12/17 Family Disease History - Family Disease History Family Disease History: Other: Father ( 70: unclear cause), Mother ( 66 : [place]), Brother (3 bros: , no cancer), Sister (3 sis: , no cancer), Son ( 1 son: healthy) Review of Systems - Review of Systems Constitutional: reports: Lethargy, Weakness Eyes: reports: No Symptoms HENT: reports: No Symptoms Neck: reports: No Symptoms Cardiovascular: reports: No Symptoms Respiratory: reports: No Symptoms Gastrointestinal: reports: No Symptoms Genitourinary: reports: No Symptoms Musculoskeletal: reports: Muscle Weakness Integumentary: reports: No Symptoms Neurological: reports: No Symptoms Endocrine: reports: No Symptoms Hematology/Lymphatic: reports: No Symptoms Psychiatric: reports: No Symptoms Physical Exam Vital Signs: Vital Signs Temperature 97.9 F 05/22/17 14:00 Pulse Rate 63 05/22/17 14:00 Respiratory Rate 18 05/22/17 10:00 Blood Pressure 136/63 05/22/17 14:00 O2 Sat by Pulse Oximetry (%) 99 05/22/17 11:00 Constitutional: Yes: No Distress, Calm Eyes: Yes: Conjunctiva Clear Cardiovascular: Yes: Regular Rate and Rhythm Respiratory: Yes: Regular, CTA Bilaterally Gastrointestinal: Yes: Normal Bowel Sounds, Soft Musculoskeletal: Yes: WNL Extremities: Yes: WNL Integumentary: Yes: WNL Psychiatric: Yes: Alert Imaging - Results Chest X-ray: Report Reviewed, Image Reviewed Cat Scan: Report Reviewed, Image Reviewed Assessment/Plan Problem List - Problems (1) Lethargy Code(s): R53.83 - OTHER FATIGUE (2) Cerebrovascular accident (CVA) Code(s): I63.9 - CEREBRAL INFARCTION, UNSPECIFIED Qualifiers: (3) HLD (hyperlipidemia) Code(s): E78.5 - HYPERLIPIDEMIA, UNSPECIFIED Qualifiers: (4) History of hemiarthroplasty of left hip Code(s): Z96.642 - PRESENCE OF LEFT ARTIFICIAL HIP JOINT 5 uti i think patient was septic and the cause was uti plan hydration will start on ceftriaxone will watch how patient does await for all cx reports
--- NOTE | 2017-05-22 17:43 | PN ---
Progress Note, Physician History of Present Illness: FEELING GOOD - Current Medication List Current Medications: Active Medications Acetaminophen (Tylenol -) 650 mg PO Q6H PRN PRN Reason: FEVER OR PAIN Last Admin: 05/22/17 12:57 Dose: 650 mg Amlodipine Besylate (Norvasc -) 10 mg PO DAILY [facility] Ceftriaxone Sodium (Rocephin 1gm Ivpb (Pre-Docked)) 50 mls @ 100 mls/hr IVPB DAILY [facility] Last Admin: 05/22/17 13:09 Dose: 100 mls/hr Levetiracetam (Keppra -) 750 mg PO HS [facility] Last Admin: 05/21/17 21:52 Dose: 750 mg Levothyroxine Sodium (Synthroid -) 50 mcg PO ACBK [facility] Last Admin: 05/22/17 06:07 Dose: 50 mcg Lisinopril (Prinivil) 20 mg PO DAILY [facility] Last Admin: 05/22/17 10:04 Dose: 20 mg Sertraline HCl (Zoloft -) 50 mg PO DAILY [facility] Last Admin: 05/22/17 10:04 Dose: 50 mg - Objective Vital Signs: Vital Signs Temperature 97.9 F 05/22/17 14:00 Pulse Rate 63 05/22/17 14:00 Respiratory Rate 18 05/22/17 10:00 Blood Pressure 136/63 05/22/17 14:00 O2 Sat by Pulse Oximetry (%) 99 05/22/17 11:00 Constitutional: Yes: No Distress HENT: Yes: Atraumatic Neck: Yes: Supple Cardiovascular: Yes: Regular Rate and Rhythm Respiratory: Yes: CTA Bilaterally Gastrointestinal: Yes: Normal Bowel Sounds Extremities: Yes: WNL Neurological: Yes: Alert, Oriented Problem List - Problems (1) Lethargy Assessment/Plan: PT DOING WELL WANTS TO GO HOME Code(s): R53.83 - OTHER FATIGUE (2) Cerebrovascular accident (CVA) Assessment/Plan: RESIDUAL LEFT SIDED WEAKNESS DOING PT PER PATIENT Code(s): I63.9 - CEREBRAL INFARCTION, UNSPECIFIED Qualifiers: CVA mechanism: other Qualified Code(s): I63.8 - Other cerebral infarction (3) HLD (hyperlipidemia) Assessment/Plan: ON MEDS STABLE Code(s): E78.5 - HYPERLIPIDEMIA, UNSPECIFIED Qualifiers: Hyperlipidemia type: pure hypercholesterolemia (4) History of hemiarthroplasty of left hip Assessment/Plan: PTHERAPY WILL ORDER Code(s): Z96.642 - PRESENCE OF LEFT ARTIFICIAL HIP JOINT (5) UTI (urinary tract infection) Assessment/Plan: CXS NOTED AWAITING SENSITIVITON ABX Code(s): N39.0 - URINARY TRACT INFECTION, SITE NOT SPECIFIED Qualifiers: Urinary tract infection type: acute cystitis Hematuria presence: without hematuria Qualified Code(s): N30.00 - Acute cystitis without hematuria
[2017-05-22 20:41] LABS: ALBUMIN 3.7 g/dl (3.4-5.0); ANION GAP 11 (8-16); BILIRUBIN,TOTAL 0.5 mg/dL (0.2-1.0); CALCIUM 9.1 mg/dL (8.5-10.1); CO2 27 mmol/L (21-32); CREATININE 0.6 mg/dL (0.55-1.02); GLUCOSE,RANDOM 129 mg/dL (74-106); SGOT/AST 7 U/L (15-37); SGPT/ALT 15 U/L (12-78); TOT PROT 6.3 g/dl (6.4-8.2)
[2017-05-22 20:43] LABS: ALK PHOS 100 U/L (45-117)
[2017-05-22] MEDS: levETIRAcetam 250 MG TABLET (FP) PO SCH (21:08)
[2017-05-23] MEDS: LEVOTHYROXINE NA 50 MCG TABLET (FP) PO SCH (07:26)
[2017-05-23 07:28] LABS: BASOPHIL 0.7 % (0-2.0); MCH 28.6 pg (25.7-33.7); MEAN CELL VOLUME 84.2 fl (80-96); MEAN PLT VOLUME 7.4 fl (7.5-11.1); NEUTROPHILS 63.4 % (42.8-82.8); PLATELET COUNT 169 K/MM3 (134-434); RDW 13.9 % (11.6-15.6); WHITE BLOOD COUNT 5.1 K/mm3 (4.0-10.0)
[2017-05-23] MEDS: CEFTRIAXONE 50 ML IVPB SCH (09:54)
[2017-05-23] MEDS: SERTRALINE HCL 50 MG TABLET (FP) PO SCH (09:54)
[2017-05-23] MEDS: LISINOPRIL 20 MG TABLET (FP) PO SCH (09:54)
[2017-05-23] MEDS: amLODIPine BESYLATE 5 MG TABLET (FP) PO SCH (09:54)
--- NOTE | 2017-05-23 11:07 | PN ---
Progress Note, Physician History of Present Illness: Bradycardia resolved off labetolol. - Current Medication List Current Medications: Active Medications Acetaminophen (Tylenol -) 650 mg PO Q6H PRN PRN Reason: FEVER OR PAIN Last Admin: 05/22/17 21:08 Dose: 650 mg Amlodipine Besylate (Norvasc -) 10 mg PO DAILY [facility] Last Admin: 05/23/17 09:54 Dose: 10 mg Ceftriaxone Sodium (Rocephin 1gm Ivpb (Pre-Docked)) 50 mls @ 100 mls/hr IVPB DAILY [facility] Last Admin: 05/23/17 09:54 Dose: 100 mls/hr Levetiracetam (Keppra -) 750 mg PO HS [facility] Last Admin: 05/22/17 21:08 Dose: 750 mg Levothyroxine Sodium (Synthroid -) 50 mcg PO ACBK [facility] Last Admin: 05/23/17 07:26 Dose: 50 mcg Lisinopril (Prinivil) 20 mg PO DAILY [facility] Last Admin: 05/23/17 09:54 Dose: 20 mg Sertraline HCl (Zoloft -) 50 mg PO DAILY [facility] Last Admin: 05/23/17 09:54 Dose: 50 mg - Objective Vital Signs: Vital Signs Temperature 97.8 F 05/23/17 00:49 Pulse Rate 55 L 05/23/17 00:49 Respiratory Rate 18 05/23/17 00:49 Blood Pressure 154/88 05/23/17 00:49 O2 Sat by Pulse Oximetry (%) 97 05/22/17 21:00 Constitutional: Yes: No Distress, Calm, Thin Neck: Yes: Supple Cardiovascular: Yes: Regular Rate and Rhythm Respiratory: Yes: Regular, CTA Bilaterally Gastrointestinal: Yes: Normal Bowel Sounds, Soft Edema: No Neurological: Yes: Pre-Existing Deficit Labs: CBC, BMP 05/23/17 06:00 05/22/17 19:05 Problem List - Problems (1) Cerebrovascular accident (CVA) Code(s): I63.9 - CEREBRAL INFARCTION, UNSPECIFIED Qualifiers: CVA mechanism: other Qualified Code(s): I63.8 - Other cerebral infarction (2) HLD (hyperlipidemia) Code(s): E78.5 - HYPERLIPIDEMIA, UNSPECIFIED Qualifiers: Hyperlipidemia type: pure hypercholesterolemia Qualified Code(s): E78.00 - Pure hypercholesterolemia, unspecified; E78.0 - Pure hypercholesterolemia (3) History of hemiarthroplasty of left hip Code(s): Z96.642 - PRESENCE OF LEFT ARTIFICIAL HIP JOINT (4) History of intracranial hemorrhage Code(s): Z86.79 - PERSONAL HISTORY OF OTHER DISEASES OF THE CIRCULATORY SYSTEM (5) History of surgery for cerebral aneurysm Code(s): Z98.890 - OTHER SPECIFIED POSTPROCEDURAL STATES (6) Hypothyroid Code(s): E03.9 - HYPOTHYROIDISM, UNSPECIFIED Qualifiers: Hypothyroidism type: unspecified Qualified Code(s): E03.9 - Hypothyroidism, unspecified (7) Labile hypertension Code(s): I10 - ESSENTIAL (PRIMARY) HYPERTENSION (8) Seizure disorder Code(s): G40.909 - EPILEPSY, UNSP, NOT INTRACTABLE, WITHOUT STATUS EPILEPTICUS Assessment/Plan 02/15/2017 Echo: Normal LV and RV size and fxn, borderline LAE, mild MR, TR 1. Generalized weakness 2. 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 Sinus bradycardia 4. 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 Hypothyroidism 7. Recent left hip hemiarthroplasty for left displaced femoral neck fracture 2016 PLAN: 1. Continue Noravasc 10 and increase Lisinopril 40 qd and uptitrate according to BP 2. Hold Labetalol in view of sinus bradycardia 3. Resume Crestor 10 qd, follow fasting lipid panel. LFTs are normal at this time 4. DVT prophylaxis 5. D/c planning
[2017-05-23] MEDS ORDERED: LISINOPRIL 20 MG TABLET (FP) PO SCH (11:28)
--- NOTE | 2017-05-23 13:14 | PN ---
Progress Note, Physician History of Present Illness: FEELING GOOD - Current Medication List Current Medications: Active Medications Acetaminophen (Tylenol -) 650 mg PO Q6H PRN PRN Reason: FEVER OR PAIN Last Admin: 05/22/17 21:08 Dose: 650 mg Amlodipine Besylate (Norvasc -) 10 mg PO DAILY REPLACED BY [facility] Last Admin: 05/23/17 09:54 Dose: 10 mg Levetiracetam (Keppra -) 750 mg PO HS [facility]PL[facility] BY [facility] Last Admin: 05/22/17 21:08 Dose: 750 mg Levothyroxine Sodium (Synthroid -) 50 mcg PO ACBK REPLACED BY [facility] Last Admin: 05/23/17 07:26 Dose: 50 mcg Lisinopril (Prinivil) 40 mg PO DAILY REPLACED BY [facility] Rosuvastatin Calcium (Crestor -) 10 mg PO HS REPLACED BY [facility] Sertraline HCl (Zoloft -) 50 mg PO DAILY [facility]PL[facility] BY [facility] Last Admin: 05/23/17 09:54 Dose: 50 mg - Objective Vital Signs: Vital Signs Temperature 97.8 F 05/23/17 10:00 Pulse Rate 64 05/23/17 10:00 Respiratory Rate 22 05/23/17 10:00 Blood Pressure 188/68 05/23/17 10:00 O2 Sat by Pulse Oximetry (%) 97 05/22/17 21:00 Constitutional: Yes: No Distress HENT: Yes: Atraumatic Neck: Yes: Supple Cardiovascular: Yes: Regular Rate and Rhythm Respiratory: Yes: CTA Bilaterally Gastrointestinal: Yes: Normal Bowel Sounds Extremities: Yes: WNL Neurological: Yes: Alert, Oriented Labs: CBC, BMP 05/23/17 06:00 05/22/17 19:05 Problem List - Problems (1) Lethargy Assessment/Plan: PT DOING WELL WANTS TO GO HOME Code(s): R53.83 - OTHER FATIGUE (2) Cerebrovascular accident (CVA) Assessment/Plan: RESIDUAL LEFT SIDED WEAKNESS DOING PT PER PATIENT Code(s): I63.9 - CEREBRAL INFARCTION, UNSPECIFIED Qualifiers: CVA mechanism: other Qualified Code(s): I63.8 - Other cerebral infarction (3) HLD (hyperlipidemia) Assessment/Plan: ON MEDS STABLE Code(s): E78.5 - HYPERLIPIDEMIA, UNSPECIFIED Qualifiers: Hyperlipidemia type: pure hypercholesterolemia Qualified Code(s): E78.00 - Pure hypercholesterolemia, unspecified; E78.0 - Pure hypercholesterolemia (4) History of hemiarthroplasty of left hip Assessment/Plan: PTHERAPY Code(s): Z96.642 - PRESENCE OF LEFT ARTIFICIAL HIP JOINT (5) UTI (urinary tract infection) Assessment/Plan: ON IV ABX...will change as per cx and sensitivity ID CONSULT Code(s): N39.0 - URINARY TRACT INFECTION, SITE NOT SPECIFIED Qualifiers: Urinary tract infection type: acute cystitis Hematuria presence: without hematuria Qualified Code(s): N30.00 - Acute cystitis without hematuria
[2017-05-23] MEDS: LEVOFLOXACIN 500 MG IVPB 100 ML IVPB SCH (14:37)
[2017-05-23] MEDS: ACETAMINOPHEN 325 MG TABLET (FP) PO PRN ×2 (16:16→21:51)
--- NOTE | 2017-05-23 16:26 | PN ---
Progress Note, Physician History of Present Illness: patient looks much better no new issues - Current Medication List Current Medications: Active Medications Acetaminophen (Tylenol -) 650 mg PO Q6H PRN PRN Reason: FEVER OR PAIN Last Admin: 05/23/17 16:16 Dose: 650 mg Amlodipine Besylate (Norvasc -) 10 mg PO DAILY [facility] Last Admin: 05/23/17 09:54 Dose: 10 mg Levofloxacin (Levaquin 500 Mg Premixed Ivpb -) 100 mls @ 100 mls/hr IVPB DAILY [facility] Last Admin: 05/23/17 14:37 Dose: 100 mls/hr Levetiracetam (Keppra -) 750 mg PO HS [facility] Last Admin: 05/22/17 21:08 Dose: 750 mg Levothyroxine Sodium (Synthroid -) 50 mcg PO ACBK [facility] Last Admin: 05/23/17 07:26 Dose: 50 mcg Lisinopril (Prinivil) 40 mg PO DAILY [facility] Rosuvastatin Calcium (Crestor -) 10 mg PO HS [facility] Sertraline HCl (Zoloft -) 50 mg PO DAILY [facility] Last Admin: 05/23/17 09:54 Dose: 50 mg - Objective Vital Signs: Vital Signs Temperature 98.2 F 05/23/17 16:07 Pulse Rate 72 05/23/17 16:07 Respiratory Rate 20 05/23/17 16:07 Blood Pressure 145/72 05/23/17 16:07 O2 Sat by Pulse Oximetry (%) 99 05/23/17 13:00 Constitutional: Yes: No Distress, Calm Cardiovascular: Yes: Regular Rate and Rhythm Respiratory: Yes: Regular, CTA Bilaterally Gastrointestinal: Yes: Normal Bowel Sounds, Soft Musculoskeletal: Yes: WNL Extremities: Yes: WNL Neurological: Yes: Alert, Oriented Psychiatric: Yes: Alert, Oriented Labs: CBC, BMP 05/23/17 06:00 05/22/17 19:05 Assessment/Plan Problem List - Problems (1) Lethargy Code(s): R53.83 - OTHER FATIGUE (2) Cerebrovascular accident (CVA) Code(s): I63.9 - CEREBRAL INFARCTION, UNSPECIFIED Qualifiers: (3) HLD (hyperlipidemia) Code(s): E78.5 - HYPERLIPIDEMIA, UNSPECIFIED Qualifiers: (4) History of hemiarthroplasty of left hip Code(s): Z96.642 - PRESENCE OF LEFT ARTIFICIAL HIP JOINT 5 uti i think patient was septic and the cause was uti plan agree with current abx rest continue current mgmt
[2017-05-23] MEDS ORDERED: levETIRAcetam 250 MG TABLET (FP) PO SCH (22:00)
[2017-05-23] MEDS ORDERED: ROSUVASTATIN CA 10 MG TABLET (FP) PO SCH (22:00)
[2017-05-24] MEDS ORDERED: LEVOTHYROXINE NA 50 MCG TABLET (FP) PO SCH (07:00)
[2017-05-24] MEDS ORDERED: SERTRALINE HCL 50 MG TABLET (FP) PO SCH (10:00)
[2017-05-24] MEDS: amLODIPine BESYLATE 5 MG TABLET (FP) PO SCH (10:30)
[2017-05-24] MEDS: LEVOFLOXACIN 500 MG IVPB 100 ML IVPB SCH (10:31)
[2017-05-24 12:45] VITALS: BP 140/64; PULSE 71; TEMP 98.8
--- NOTE | 2017-05-24 17:20 | DS ---
Physical Examination Vital Signs: Vital Signs Temperature 98.8 F 05/24/17 10:00 Pulse Rate 71 05/24/17 10:00 Respiratory Rate 20 05/24/17 10:00 Blood Pressure 140/64 05/24/17 10:00 O2 Sat by Pulse Oximetry (%) 99 05/24/17 10:00 Labs: CBC, BMP 05/23/17 06:00 05/22/17 19:05 Discharge Summary Reason For Visit: LETHARGY Condition: Stable - Instructions Referrals: Mariano Pathak MD [Primary Care Provider] - Disposition: HOME - Home Medications Comprehensive Discharge Medication List: Ambulatory Orders Levothyroxine [Synthroid -] 50 mcg PO DAILY 04/19/14 Amlodipine Besylate [Norvasc -] 5 mg PO DAILY 02/23/17 Levetiracetam [Keppra] 750 mg PO HS 02/23/17 Sertraline HCl 50 mg PO DAILY 02/23/17 Labetalol HCl [Normodyne -] 100 mg PO DAILY #30 tablet MDD 1 03/12/17 Lisinopril [Prinivil] 20 mg PO DAILY #30 tablet MDD 1 03/12/17 Lorazepam [Ativan] 1 mg PO Q12H PRN #30 tablet MDD 2 03/12/17 Levofloxacin [Levaquin] 500 mg PO DAILY #7 tablet 05/23/17 [facility]
== END 2017-05-24 11:21 | disposition home or self-care (01) ==
LOC: JER 11:17 → JERBED 18:27 → J4W 20:05 → J5S 05-23 15:50 → INTOOBSV 05-24 08:30 → OBSVTOIN 05-24 08:30
PROVIDERS: ADMIT Internal Medicine; ATTEND Internal Medicine
PROC: 3E033NZ Introduction of Analgesics, Hypnotics, Sedatives into Peripheral Vein, Percutaneous Approach (ICD-10-PCS; principal; 2017-05-21)
PROC: 3E033GC Introduction of Other Therapeutic Substance into Peripheral Vein, Percutaneous Approach (ICD-10-PCS; 2017-05-21)
DX: R53.83 Other fatigue (principal); I69.354 Hemiplegia and hemiparesis following cerebral infarction affecting left non-dominant side; I10 Essential (primary) hypertension; E78.5 Hyperlipidemia, unspecified; Z96.642 Presence of left artificial hip joint; E03.9 Hypothyroidism, unspecified; N39.0 Urinary tract infection, site not specified; Z86.79 Personal history of other diseases of the circulatory system; G40.909 Epilepsy, unspecified, not intractable, without status epilepticus; Z98.890 Other specified postprocedural states
CPT/HCPCS: 36415; 70450-TC; 71010-TC; 80053; 81003; 81015; 83880; 84443; 84484; 85025; 87086; 87186; 97116-GP; 97161-GP; 99285-25; G0378

== ENCOUNTER 2017-06-13 15:08 | Emergency (ER) | payer OTHER, BC ==
[2017-06-13 15:45] VITALS: BMI 18.4
--- NOTE | 2017-06-13 15:58 | PDOC ---
History of Present Illness - General Stated Complaint: SEIZURE Time Seen by Provider: 06/13/17 15:15 History Source: Patient, Care Provider, Family Exam Limitations: No Limitations - History of Present Illness Initial Comments: 06/13/17 15:42 Patient is a 76F with history of hemorrhagic stroke (09/16) s/p craniotomy ( last ct 02/24/17) and seizures here today complaining of seizure. Her home health aid witnessed an episode of her right arm and leg shaking for about 5 minutes today at 9am. Patient does not remember the event. Aide reports that she was not unconscious and responded to commands while her right arm and leg were shaking. She was taken off keppra two days ago by neurology. She initially refused to go to the hospital, which delayed sending her to the hospital. She reports she hasn't had any seizures since then. She also reports right sided "increased sensation". She denies chest pain, shortness of breath, nausea, vomiting, fevers and chills. Past History - Past Medical History Allergies/Adverse Reactions: Allergies Allergy/AdvReac Type Severity Reaction Status Date / Time No Known Allergies Allergy Verified 03/04/17 17:22 Home Medications: Ambulatory Orders Levothyroxine [Synthroid -] 50 mcg PO DAILY 04/19/14 Amlodipine Besylate [Norvasc -] 10 mg PO DAILY 02/23/17 Sertraline HCl 75 mg PO DAILY 02/23/17 Levetiracetam [Keppra] 500 mg PO BID #60 tablet 06/13/17 Lisinopril [Prinivil] 40 mg PO DAILY MDD 1 06/13/17 Rosuvastatin Calcium [Crestor] 10 mg PO DAILY 06/13/17 CVA: Yes (brain aneurysm/ lt sided weakness) HTN: Yes Hypercholesterolemia: Yes Thyroid Disease: Yes (hypo) - Surgical History Neurologic Surgery: Yes (aneurysm repair) - Immunization History Immunization Up to Date: Yes - Psycho/Social/Smoking Cessation Hx Anxiety: No Suicidal Ideation: No Smoking History: Never smoked Have you smoked in the past 12 months: No Hx Alcohol Use: No Drug/Substance Use Hx: No Substance Use Type: None Hx Substance Use Treatment: No Review of Systems - Review of Systems Comments:: 06/13/17 16:03 GENERAL/CONSTITUTIONAL: No fever or chills. Positive for left sided weakness, unchanged from baseline. HEAD, EYES, EARS, NOSE AND THROAT: No change in vision. No sore throat. CARDIOVASCULAR: No chest pain or shortness of breath RESPIRATORY: No cough, wheezing, or hemoptysis. GASTROINTESTINAL: No nausea, vomiting, diarrhea or constipation. GENITOURINARY: No dysuria, frequency, or change in urination. MUSCULOSKELETAL: Positive for left hip pain. SKIN: No rash NEUROLOGIC: No headache, loss of consciousness, or change in strength/sensation. HEMATOLOGIC/LYMPHATIC: History of hemorrhagic stroke ALLERGIC/IMMUNOLOGIC: No hives or skin allergy. *Physical Exam - Physical Exam Comments: 06/13/17 16:07 GENERAL: Awake, alert, and fully oriented, in no acute distress HEAD: No signs of trauma, normocephalic, atraumatic EYES: PERRLA, EOMI, sclera anicteric, conjunctiva clear ENT: Auricles normal inspection, hearing grossly normal, nares patent, oropharynx clear without exudates. Moist mucosa LUNGS: No distress, speaks full sentences, clear to auscultation bilaterally HEART: Regular rate and rhythm, normal S1 and S2, no murmurs, rubs or gallops, peripheral pulses normal and equal bilaterally. ABDOMEN: Soft, nontender, normoactive bowel sounds. No guarding, no rebound. No masses EXTREMITIES: Normal inspection, Normal range of motion, no edema. No clubbing or cyanosis. NEUROLOGICAL: Left sided facial droopiness. Slurred speech. Moves all 4 extrimities, 2/5 strength in left arm and leg. 5/5 strength in right arm and leg. Left sided inattention SKIN: Warm, Dry, normal turgor, no rashes or lesions noted. NIH Stroke Scale - Last Known Well Date/Time & Onset Date Last Known Well: 06/13/17 Time Last Known Well: 09:00 - Initial Evaluation Level of consciousness: Alert Ask patient the month and their age: Answers both correctly Ask patient to open & close eyes; make fist and let go: Obeys both correctly Best gaze (horizontal eye movement): Normal Visual field testing: No visual field loss Facial paresis (Show teeth/raise eyebrows/close eyes tight): Partial paralysis ( total or near paralysis of lower face) Motor Function: Left Arm: No effort against gravity Motor Function: Right Arm: Normal (extends arm 90 (or 45) degrees for 10 seconds without drift Motor Function: Left Leg: No effort against gravity Motor Function: Right Leg: Normal (extends leg 30 degrees for 5 seconds without drift) Limb Ataxia: No ataxia Sensory(Use pinprick test arms,legs,trunk,face/side to side): Mild to moderate decrease in sensation Best language (Describe picture, name items, read sentences): Mild to moderate aphasia Dysarthria (read several words): Mild to moderate slurring of words Extinction and Inattention: Inattention or extinction bilaterally to one of the sensory modalities - Total Score NIH Stroke Scale Score: 12 Critical Care Time/MDM Note - Medical Decision Making Note: 06/13/17 16:46 Patient is a 76F with history of hem stroke (09/16) s/p craniotomy, and seizures here today complaining of seizure. Patient is hypertensive to 180, otherwise normal. Blood glucose normal. Vital signs otherwise normal and stable. Patient had an episode of a "seizure" in the ED that was voluntary hand shaking. When given a task patient stopped shaking. Stroke scale 12, with hemiattention to left side, questionable visual field defect, questionable eye sight, language barrier while doing stroke scale. Will do stroke workup to evaluate. Patient is not a candidate for tpa due to history of hemorrhagic stroke in 09/15 and being outside the window for tpa. 06/13/17 17:39 Laboratory Tests 06/13/17 06/13/17 06/13/17 15:00 15:00 15:21 WBC 7.2 D Hgb 13.3 Hct 38.2 Plt Count 229 Sodium 130 L Potassium 3.8 Chloride 94 L Carbon Dioxide 29 Anion Gap 7 L BUN 12 Creatinine 0.5 L POC Glucometer [id number] Troponin I < 0.02 CBC normal, Trop neg, glucose normal, cmp unremarkable. 06/13/17 17:41 CT Head No definite interval change is identified in comparison to a previous exam of . Chronic right frontal and right temporal infarcts are noted. Status post right temporoparietal craniotomy. 06/13/17 18:35 Dr Sharma consulted on patient. Discussed history, lab findings, imaging findings and exam. Advised to add keppra 500mg BID. Will see patient as outpatient and comfortable with discharge. 06/13/17 18:[address] Pathak about patient, agrees with discharge. Will discharge the patient. Discharge Disposition - Diagnosis Seizure - Discharge Dispostion Disposition: HOME Condition at time of disposition: Good Last Admission D/C Date: 03/12/17 Admit: No - Prescriptions Prescriptions: Levetiracetam [Keppra] 500 mg PO BID #60 tablet - Patient Instructions Printed Discharge Instructions: DI for Seizure Disorder -- Adult
[2017-06-13 16:06] LABS: BASOPHIL 0.6 % (0-2.0); EOSINOPHIL 0.1 % (0-4.5); MCH 29.1 pg (25.7-33.7); MCHC 34.8 g/dl (32.0-36.0); MEAN CELL VOLUME 83.7 fl (80-96); MEAN PLT VOLUME 7.4 fl (7.5-11.1); NEUTROPHILS 72.2 % (42.8-82.8); PLATELET COUNT 229 K/MM3 (134-434); RDW 13.5 % (11.6-15.6); WHITE BLOOD COUNT 7.2 K/mm3 (4.0-10.0)
[2017-06-13 16:25] LABS: INR 1.18 (0.82-1.09)
[2017-06-13 16:28] LABS: ALBUMIN 4.3 g/dl (3.4-5.0); ANION GAP 7 (8-16); BILIRUBIN,TOTAL 0.8 mg/dL (0.2-1.0); CALCIUM 9.5 mg/dL (8.5-10.1); CO2 29 mmol/L (21-32); CREATININE 0.5 mg/dL (0.55-1.02); GLUCOSE,RANDOM 111 mg/dL (74-106); SGOT/AST 10 U/L (15-37); SGPT/ALT 19 U/L (12-78); TOT PROT 7.1 g/dl (6.4-8.2)
[2017-06-13 16:31] LABS: ALK PHOS 90 U/L (45-117); CPK 36 IU/L (26-192); TROPONIN I < 0.02 ng/ml (0.00-0.05)
--- NOTE | 2017-06-13 17:22 | PDOC ---
Attending Attestation - Resident Resident Name: ZuhairJackson - ED Attending Attestation I have performed the following: I have examined & evaluated the patient, The case was reviewed & discussed with the resident, I agree w/resident's findings & plan, Exceptions are as noted - HPI HPI: 06/13/17 17:16 76 F with h/o hemorrhagic CVA with residual L side weakness presenting to ER with R side shaking. Per [employer], pt's R arm was shaking earlier today. She describes the movement as tremor-like. Pt was awake and alert during this episode. Since then, pt has had intermittent R arm tremors with no LOC. Pt denies any other symptoms. Denies VILLALOBOS/N/V. Denies neck pain. Denies double vision. Denies CP/SOB. Pt has chronic L side weakness and denies any changes in that. - Physicial Exam PE: 06/13/17 17:21 "GENERAL: Awake, alert, and fully oriented, in no acute distress HEAD: No signs of trauma EYES: PERRLA, EOMI, sclera anicteric, conjunctiva clear ENT: Auricles normal inspection, hearing grossly normal, nares patent, oropharynx clear without exudates. Moist mucosa NECK: Normal ROM, supple, no lymphadenopathy, JVD, or masses LUNGS: Breath sounds equal, clear to auscultation bilaterally. No wheezes, and no crackles HEART: Regular rate and rhythm, normal S1 and S2, no murmurs, rubs or gallops ABDOMEN: Soft, nontender, normoactive bowel sounds. No guarding, no rebound. No masses EXTREMITIES: Normal range of motion, no edema. No clubbing or cyanosis. No cords, erythema, or tenderness NEUROLOGICAL: Pt with L -SIDE visual field cut bilaterally, 4/5 strength in LUE and LLE, 5/5 strength and sensation in RUE and RLE SKIN: Warm, Dry, normal turgor, no rashes or lesions noted. " - Medical Decision Making 06/13/17 17:22 76 F with h/o hemorrhagic CVA and residual L sided weakness, presenting now with R side tremors and L visual field cut. Concerning for acute stroke vs seizures. Also consider recrudescence of old stroke. Will work up for infectious process. - Labs - CTH - Neuro consult Pt signed out to night team at 6pm - disposition pending CT head result, labs, and discussion with neuro.
[2017-06-13 17:46] LABS: URINE APPEARANCE CLOUDY; URINE BILIRUBIN NEGATIVE (NEGATIVE); URINE BLOOD NEGATIVE (NEGATIVE); URINE COLOR LTYELLOW; URINE GLUCOSE (UA) NEGATIVE (NEGATIVE); URINE KETONE TRACE (NEGATIVE); URINE LEUK ESTERASE NEGATIVE (NEGATIVE); URINE NITRITE NEGATIVE (NEGATIVE); URINE PROTEIN NEGATIVE (NEGATIVE); URINE UROBILINOGEN NEGATIVE mg/dL (0.2-1.0)
[2017-06-13] MEDS ORDERED: levETIRAcetam 500 MG TABLET (FP) PO ONE ×2 (18:24→18:58)
[2017-06-13] MEDS ORDERED: ACETAMINOPHEN 325 MG TABLET (FP) PO ONE (18:46)
[2017-06-13] MEDS ORDERED: ACETAMINOPHEN 325 MG TABLET (FP) ONE (18:58)
[2017-06-13 19:09] VITALS: BP 166/74; PULSE 80; TEMP 98.6
--- NOTE | 2017-06-14 13:14 | EKG ---
Test Reason : Blood Pressure : / mmHG Vent. Rate : 074 BPM Atrial Rate : 074 BPM P-R Int : 164 ms QRS Dur : 086 ms QT Int : 386 ms P-R-T Axes : 049 013 052 degrees QTc Int : 428 ms NORMAL SINUS RHYTHM NORMAL ECG WHEN COMPARED WITH ECG OF 06-MAR-2017 09:40, NO SIGNIFICANT CHANGE WAS FOUND Confirmed by EDIN BLAND MD ([id number]) on 06/14/2017 1:14:04 PM Referred By: Confirmed By:EDIN BLAND MD
== END 2017-06-13 19:09 | disposition home or self-care (01) ==
LOC: JER 15:08
DX: G40.89 Other seizures (principal)
CPT/HCPCS: 36415; 70450-TC; 71010-TC; 80053; 81003; 84484; 85025; 85610; 86850; 86900; 86901; 93005; 93010; 99283-25

== ENCOUNTER 2017-08-30 22:01 | Emergency (ER) | payer OTHER, BC ==
[2017-08-30 23:00] VITALS: PULSE 68; BMI 22.7
[2017-08-30 23:06] LABS: BASOPHIL 0.6 % (0-2.0); EOSINOPHIL 1.5 % (0-4.5); MCH 29.8 pg (25.7-33.7); MCHC 34.9 g/dl (32.0-36.0); MEAN CELL VOLUME 85.3 fl (80-96); MEAN PLT VOLUME 7.6 fl (7.5-11.1); NEUTROPHILS 54.1 % (42.8-82.8); PLATELET COUNT 170 K/MM3 (134-434); RDW 13.3 % (11.6-15.6); WHITE BLOOD COUNT 4.3 K/mm3 (4.0-10.0)
[2017-08-30] MEDS ORDERED: ONDANSETRON 4 MG/2 ML VIAL IVPUSH ONE (23:17)
[2017-08-30 23:19] LABS: ALBUMIN 3.9 g/dl (3.4-5.0); ALK PHOS 83 U/L (45-117); ANION GAP 8 (8-16); BILIRUBIN,TOTAL 0.6 mg/dL (0.2-1.0); CO2 29 mmol/L (21-32); CPK 36 IU/L (26-192); CREATININE 0.5 mg/dL (0.55-1.02); GLUCOSE,RANDOM 127 mg/dL (74-106); SGOT/AST 12 U/L (15-37); SGPT/ALT 21 U/L (12-78); TOT PROT 6.6 g/dl (6.4-8.2)
[2017-08-30] MEDS ORDERED: ONDANSETRON 4 MG/2 ML VIAL ONE (23:19)
[2017-08-30 23:21] LABS: TROPONIN I < 0.02 ng/ml (0.00-0.05)
--- NOTE | 2017-08-30 23:21 | PDOC ---
History of Present Illness - General Chief Complaint: Pain, Acute Stated Complaint: PAIN Time Seen by Provider: 08/30/17 22:48 History Source: Patient - History of Present Illness Initial Comments: 08/30/17 23:21 76 year old female c/o epigastric and RLQ pain x 3 days with no relief. + mild nausea, denies vomiting, diarrhea urinary symptom. + BM today as per Aide. history of brain aneurysm with left sided weakness. 08/30/17 23:26 Past History - Past Medical History Allergies/Adverse Reactions: Allergies Allergy/AdvReac Type Severity Reaction Status Date / Time No Known Allergies Allergy Verified 08/30/17 22:14 Home Medications: Ambulatory Orders Levothyroxine [Synthroid -] 50 mcg PO DAILY 04/19/14 Amlodipine Besylate [Norvasc -] 10 mg PO DAILY 02/23/17 Sertraline HCl 75 mg PO DAILY 02/23/17 Levetiracetam [Keppra] 500 mg PO BID #60 tablet 06/13/17 Lisinopril [Prinivil] 40 mg PO DAILY MDD 1 06/13/17 Rosuvastatin Calcium [Crestor] 10 mg PO DAILY 06/13/17 CVA: Yes (brain aneurysm/ lt sided weakness) COPD: No HTN: Yes Hypercholesterolemia: Yes Thyroid Disease: Yes (hypo) - Surgical History Neurologic Surgery: Yes (aneurysm repair) - Immunization History Immunization Up to Date: Yes - Suicide/Smoking/Psychosocial Hx Smoking History: Never smoked Have you smoked in the past 12 months: No Hx Alcohol Use: No Drug/Substance Use Hx: No Substance Use Type: None Hx Substance Use Treatment: No Review of Systems - Review of Systems Able to Perform ROS?: Yes Is the patient limited Macedonian proficient: No Constitutional: No: Symptoms Reported, See HPI, Chills, Diaphoresis, Fever, Loss of Appetite, Malaise, Night Sweats, Weakness, Weight Stable, Unintentional Wgt. Loss, Unexplained wgt Loss, Other HEENTM: No: Symptoms Reported, See HPI, Eye Pain, Blurred Vision, Tearing, Recent change in vision, Double Vision, Cataracts, Ear Pain, Ocular Prothesis, Ear Discharge, Nose Pain, Nose Congestion, Tinnitus, Nose Bleeding, Hearing Loss , Throat Pain, Throat Swelling, Mouth Pain, Dental Problems, Difficulty Swallowing, Mouth Swelling, Other ABD/GI: Yes: Nausea, Abdominal cramping. No: Symptoms Reported, See HPI, Abdominal Distended, Abd. Pain w/ defecation, Blood Streaked Bowels, Constipated , Diarrhea, Difficulty Swallowing, Poor Appetite, Poor Fluid Intake, Rectal Bleeding, Vomiting, Indigestion, Tarry Stools, Other : No: Symptoms Reported, See HPI, Burning, Dysuria, Discharge, Frequency, Flank Pain, Hematuria, Incontinence, Pain, Urgency, Testicular Mass, Testicular Swelling, Lesions, Testicular Pain, Other *Physical Exam - Vital Signs Last Vital Signs Temp Pulse Resp BP Pulse Ox 68 20 170/90 98 08/30/17 22:12 08/30/17 22:12 08/30/17 22:12 08/30/17 22:12 - Physical Exam General Appearance: Yes: Appropriately Dressed Respiratory/Chest: positive: Lungs Clear, Normal Breath Sounds Gastrointestinal/Abdominal: positive: Tender (RLQ, epigastric), Soft, Increased Bowel Sounds Musculoskeletal: positive: Vertebral Tenderness Extremity: positive: Normal Capillary Refill, Normal Inspection Integumentary: positive: Normal Color, Dry, Warm Neurologic: positive: Fully Oriented, Alert, Normal Mood/Affect Heart Score/ECG Review - ECG Intrepretation Rhythm: Regular Rhythm Comment:: 08/30/17 23:21 Sinus bradycardia: 59 ED Treatment Course - LABORATORY CBC & Chemistry Diagram: 08/30/17 22:41 08/30/17 22:41 - RADIOLOGY Radiograph Interpretation: 08/31/17 01:44 no acute finding in CTAP. 3.6 cm infrarenal abdominal aortic aneurysym incidentally found. discussed with Dr. rodriguez. patient to follow up outpatient. 08/31/17 01:53 Progress Note - Progress Note Progress Note: A: Abdominal pain P: cbc cmp lipase ua CTAP *DC/Admit/Observation/Transfer Diagnosis at time of Disposition: Abdominal pain Qualifiers: Abdominal location: lower abdomen, unspecified Qualified Code(s): R10.30 - Lower abdominal pain, unspecified - Discharge Dispostion Disposition: HOME - Referrals Referrals: Mariano Rodriguez MD [Primary Care Provider] - Call tomorrow - Patient Instructions Printed Discharge Instructions: DI for Abdominal Pain-Adult Additional Instructions: follow up with Dr. michael LOPEZ. return to the ER if symptoms worsen. - Post Discharge Activity
--- NOTE | 2017-08-30 23:37 | PDOC ---
*Physical Exam - Vital Signs Last Vital Signs Temp Pulse Resp BP Pulse Ox 68 20 170/90 98 08/30/17 22:12 08/30/17 22:12 08/30/17 22:12 08/30/17 22:12 ED Treatment Course - LABORATORY CBC & Chemistry Diagram: 08/30/17 22:41 08/30/17 22:41 - ADDITIONAL ORDERS Additional order review: Laboratory Results 08/30/17 22:41 Sodium 137 Potassium 3.6 Chloride 100 Carbon Dioxide 29 Anion Gap 8 BUN 10 D Creatinine 0.5 L Creat Clearance w eGFR > 60 Random Glucose 127 H D Calcium 9.0 Total Bilirubin 0.6 AST 12 L D ALT 21 Alkaline Phosphatase 83 Creatine Kinase 36 Troponin I < 0.02 Total Protein 6.6 Albumin 3.9 Lipase 245 08/30/17 22:41 RBC 4.29 MCV 85.3 MCHC 34.9 RDW 13.3 MPV 7.6 Neutrophils % 54.1 D Lymphocytes % 37.9 D Monocytes % 5.9 Eosinophils % 1.5 D Basophils % 0.6 - Medications Given in the ED: ED Medications Discontinued Medications Generic Name Dose Route Start Last Admin Trade Name Freq PRN Reason Stop Dose Admin Ondansetron HCl 4 mg 08/30/17 23:17 08/30/17 23:18 Zofran Injection IVPUSH 08/30/17 23:18 4 mg ONCE ONE Administration Medical Decision Making - Medical Decision Making 08/30/17 23:37 agree with care from MEGAN Paz *DC/Admit/Observation/Transfer - Referrals Referrals: Mariano Pathak MD [Primary Care Provider] - - Patient Instructions - Post Discharge Activity
[2017-08-30 23:47] LABS: URINE APPEARANCE CLEAR; URINE BILIRUBIN NEGATIVE (NEGATIVE); URINE BLOOD NEGATIVE (NEGATIVE); URINE COLOR STRAW; URINE GLUCOSE (UA) NEGATIVE (NEGATIVE); URINE KETONE NEGATIVE (NEGATIVE); URINE NITRITE NEGATIVE (NEGATIVE); URINE PROTEIN NEGATIVE (NEGATIVE); URINE UROBILINOGEN NEGATIVE mg/dL (0.2-1.0)
[2017-08-31 02:19] VITALS: BP 167/83
[2017-08-31 09:51] LABS: URINE LEUK ESTERASE Negative (NEGATIVE)
--- NOTE | 2017-08-31 10:04 | EKG ---
Test Reason : Blood Pressure : / mmHG Vent. Rate : 059 BPM Atrial Rate : 059 BPM P-R Int : 184 ms QRS Dur : 084 ms QT Int : 412 ms P-R-T Axes : 049 -14 041 degrees QTc Int : 407 ms SINUS BRADYCARDIA OTHERWISE NORMAL ECG WHEN COMPARED WITH ECG OF 13-JUN-2017 17:45, NO SIGNIFICANT CHANGE WAS FOUND Confirmed by MARIALUISA DE LUNA MD ([id number]) on 08/31/2017 10:04:08 AM Referred By: Confirmed By:MARIALUISA DE LUNA MD
== END 2017-08-31 02:18 | disposition home or self-care (01) ==
LOC: JER 22:01
PROC: 3E033GC Introduction of Other Therapeutic Substance into Peripheral Vein, Percutaneous Approach (ICD-10-PCS; principal; 2017-08-30)
DX: R10.30 Lower abdominal pain, unspecified (principal); I10 Essential (primary) hypertension; E78.00 Pure hypercholesterolemia, unspecified; E03.9 Hypothyroidism, unspecified
CPT/HCPCS: 36415; 74177-TC; 80053; 81003; 82550; 83690; 84484; 85025; 93005; 93010; 99282-25

== ENCOUNTER 2018-04-22 07:36 | Emergency (ER) | payer OTHER, MEDICARE ==
--- NOTE | 2018-04-22 08:11 | PDOC ---
History of Present Illness - General Chief Complaint: Seizure Stated Complaint: SEIZURE Time Seen by Provider: 04/22/18 07:59 History Source: Patient, Care Provider Exam Limitations: No Limitations - History of Present Illness Initial Comments: 04/22/18 09:30 Patient is a 72-year-old female past medical history of CVA with residual left- sided weakness, hypothyroidism, hypertension, hyperlipidemia, left-sided hip fracture with repair, who presents to the emergency department today after having 2 seizures this morning. Seizures were witnessed by the home health aide. Home health aide states that patient was getting up from the commode when she started to seize. The aide was able to lower her to the ground. Patient did not fall or hit her head. The first seizure lasted approximately 2 minutes. She had two minutes without a seizure and then had a second seizure lasting three minutes. Seizures resolved by the time 911 was called. Patient was transported to the hospital. She did not need any medication for her seizures pre-hospital. The aide states that her seizure medication was recently changed. Patient admits that she has some left hip pain. Denies fevers, chills, shortness of breath, difficulty breathing, recent illness, cough, nausea, vomiting, diarrhea , frequency, urgency and hematuria. Past History - Travel Traveled outside of the country in the last 30 days: No Close contact w/someone who was outside of country & ill: No - Past Medical History Allergies/Adverse Reactions: Allergies Allergy/AdvReac Type Severity Reaction Status Date / Time No Known Allergies Allergy Verified 04/22/18 08:03 Home Medications: Ambulatory Orders Levothyroxine [Synthroid -] 50 mcg PO DAILY 04/19/14 Amlodipine Besylate [Norvasc -] 10 mg PO DAILY 02/23/17 Sertraline HCl 50 mg PO DAILY 02/23/17 Lisinopril [Prinivil] 20 mg PO DAILY MDD 1 06/13/17 Rosuvastatin Calcium [Crestor] 10 mg PO DAILY 06/13/17 Ezetimibe 10 mg PO DAILY 04/22/18 Levetiracetam [Keppra] 500 mg PO DAILY 04/22/18 Oxcarbazepine [Trileptal -] 300 mg PO BID 04/22/18 Oxcarbazepine [Trileptal -] 600 mg PO BID #28 tablet 04/22/18 Sertraline HCl [Zoloft] 25 mg PO DAILY 04/22/18 CVA: Yes (brain aneurysm/ lt sided weakness) COPD: No HTN: Yes Hypercholesterolemia: Yes Thyroid Disease: Yes (hypo) - Surgical History Neurologic Surgery: Yes (aneurysm repair) - Immunization History Immunization Up to Date: Yes - Suicide/Smoking/Psychosocial Hx Smoking History: Unknown if ever smoked Have you smoked in the past 12 months: No Hx Alcohol Use: No Drug/Substance Use Hx: No Substance Use Type: None Hx Substance Use Treatment: No Review of Systems - Review of Systems Able to Perform ROS?: Yes Comments:: 04/22/18 08:11 CONSTITUTIONAL: Absent: fever, chills, diaphoresis, generalized weakness, malaise, loss of appetite HEENT: Absent: rhinorrhea, nasal congestion, throat pain, throat swelling, difficulty swallowing, mouth swelling, ear pain, eye pain, visual Changes CARDIOVASCULAR: Absent: chest pain, loss of consciousness, palpitations, irregular heart rate, peripheral edema RESPIRATORY: Absent: cough, shortness of breath, dyspnea with exertion, orthopnea, wheezing, stridor, hemoptysis GASTROINTESTINAL: Absent: abdominal pain, abdominal distension, nausea, vomiting, diarrhea, constipation, melena, hematochezia GENITOURINARY: Absent: dysuria, frequency, urgency, hesitancy, hematuria, flank pain, genital pain MUSCULOSKELETAL: Absent: myalgia, arthralgia, joint swelling SKIN: Absent: rash, itching, pallor HEMATOLOGIC/IMMUNOLOGIC: Absent: easy bleeding, easy bruising, lymphadenopathy, frequent infections ENDOCRINE: Absent: unexplained weight gain, unexplained weight loss, heat intolerance, cold intolerance NEUROLOGIC: Present: seizure Absent: headache, focal weakness or paresthesias, dizziness, unsteady gait, mental status changes, bladder or bowel incontinence PSYCHIATRIC: Absent: anxiety, depression, suicidal or homicidal ideation, hallucinations. Is the patient limited Indonesian proficient: No *Physical Exam - Vital Signs Last Vital Signs Temp Pulse Resp BP Pulse Ox 98.9 F 86 14 186/85 99 04/22/18 07:36 04/22/18 07:36 04/22/18 07:36 04/22/18 07:36 04/22/18 07:36 - Physical Exam Comments: 04/22/18 08:11 GENERAL: Well developed, well nourished. Awake and alert. No acute distress. HEENT: Normocephalic, atraumatic. PERRLA, EOMI. No conjunctival pallor. Sclera are non- icteric. Moist mucous membranes. Oropharynx is clear. NECK: Supple. Full ROM. No JVD. Carotid pulses 2+ and symmetric, without bruits. No thyromegaly. No lymphadenopathy. CARDIOVASCULAR: Regular rate and rhythm. No murmurs, rubs, or gallops. Distal pulses are 2+ and symmetric. PULMONARY: No evidence of respiratory distress. Lungs clear to auscultation bilaterally. No wheezing, rales or rhonchi. ABDOMINAL: Soft. Non-tender. Non-distended. No rebound or guarding. No organomegaly. Normoactive bowel sounds. MUSCULOSKELETAL TTP of L hip posteriorly. Normal range of motion at all joints. No bony deformities or tenderness. No CVA tenderness. EXTREMITIES: No cyanosis. No clubbing. No edema. No calf tenderness. SKIN: Warm and dry. Normal capillary refill. No rashes. No jaundice. NEUROLOGICAL: Alert, awake, appropriate. Cranial nerves 2-12 intact. No deficits to light touch and temperature in face, upper extremities and lower extremities. No motor deficits in the in face, R upper extremity and R lower extremity. Pt unable to move L arm and leg s/p CVA one year ago. Normoreflexic in the upper and lower extremities. Normal speech. Toes are down-going bilaterally. Gait is normal without ataxia. PSYCHIATRIC: Cooperative. Good eye contact. Appropriate mood and affect. ED Treatment Course - LABORATORY CBC & Chemistry Diagram: 04/22/18 08:20 04/22/18 08:20 Medical Decision Making - Medical Decision Making 04/22/18 09:36 Patient is a 77-year-old male past medical history of seizure disorder, and CVA with residual left-sided weakness, hypertension, hypothyroidism, who presents to the emergency department today after having a seizure at this morning. On exam patient is post ictal; however it is resolving at this time. Patient following basic commands, no gross neurological deficits at this time. Tongue shows no evidence of bite, patient did not have any incontinence during the episode. Patient's blood pressure in the ED is in the 180s over 90s. Did not take her home medication. Differential diagnosis includes but is not limited to stroke, infection, patient's seizure disorder, subtherapeutic medication levels , infection. 1.lab work, urine 2.EKG, chest x-ray 3.head CT 4.home hypertensive medications. Reevaluate 04/22/18 12:42 Lab work shows sodium of 125. IV fluids started. Patient is currently out of her post ictal phase and is answering questions normally and she can recall the events prior to the seizure. No leukocytosis at this time. Other electrolytes are grossly normal. Troponin is negative at this time. Urine is clean. Head CT shows no evidence of acute bleed, ischemia or mass at this time. Spoke with patient's neurologist Dr. Sharma. States that patient was switched off of Keppra and changed to Trileptal. Recommends doubling her dose of Trileptal to 600 mg twice a day. States that he will see the patient the office on . He feels comfortable with the patient being discharged home at this time as lab work and CT are grossly normal. We'll discharge home at this time. Return precautions given. Patient received all discharge instructions and all questions were answered. EKG: rate 88bpm, Normal axis, normal intervals. NSR. No acute ST-T wave changes. Overall normal EKG. *DC/Admit/Observation/Transfer Diagnosis at time of Disposition: Seizure - Discharge Dispostion Disposition: HOME Decision to Admit order: No - Prescriptions Prescriptions: Oxcarbazepine [Trileptal -] 600 mg PO BID #28 tablet - Referrals Referrals: Jackson Valencia MD, MD [Primary Care Provider] - Darien Sharma DO [Staff Physician] - 04/25/18 - Patient Instructions Printed Discharge Instructions: DI for Seizure Disorder -- Adult Additional Instructions: You had a seizure today. Your head CT was negative today. I spoke with your neurologist Dr. Sharma Please take Trilipta 600mg twice a day starting today. You have 300 mg pills at home. You may take 2 300 mg pills in the morning and to 300 mg pills at night. I have also sent to a new prescription [facility] pharmacy. Follow the instructions on the label. You need to follow up with Dr. Sharma on . They will contact you to set up an appointment. - Post Discharge Activity
[2018-04-22 08:12] VITALS: BMI 17.2
[2018-04-22] MEDS ORDERED: ACETAMINOPHEN 1000 MG/100 ML VIAL (NON FORMULARY) IVPB ONE (08:13)
[2018-04-22] MEDS ORDERED: ACETAMINOPHEN INJECTION 100 ML IVPB ONE (08:24)
[2018-04-22 08:45] LABS: BASO % 0.8 % (0-2.0); EOS % 0.8 % (0-4.5); HEMATOCRIT 40.5 % (32.4-45.2); HEMOGLOBIN 14.2 GM/dL (10.7-15.3); LYMPH % 27.5 % (8-40); MCH 29.5 pg (25.7-33.7); MEAN CELL VOLUME 84.3 fl (80-96); MEAN PLT VOLUME 7.2 fl (7.5-11.1); MONO % 4.5 % (3.8-10.2); NEUT % 66.4 % (42.8-82.8); PLATELET COUNT 205 K/MM3 (134-434); RBC 4.81 M/mm3 (3.60-5.2)
[2018-04-22] MEDS ORDERED: amLODIPine BESYLATE 10 MG TABLET (FP) PO ONE (08:54)
[2018-04-22] MEDS ORDERED: LISINOPRIL 20 MG TABLET (FP) PO ONE (08:54)
[2018-04-22] MEDS ORDERED: LISINOPRIL 20 MG TABLET (FP) ONE (08:56)
[2018-04-22 09:01] LABS: INR 1.09 (0.82-1.09); PROTHROMBIN TIME (PATIENT) 12.3 SEC (9.7-13.0)
[2018-04-22 09:13] LABS: ALBUMIN 4.5 g/dl (3.4-5.0); ANION GAP 7 (8-16); BILIRUBIN,TOTAL 0.7 mg/dL (0.2-1.0); BLOOD UREA NITROGEN 14 mg/dL (7-18); CALCIUM 9.3 mg/dL (8.5-10.1); CHLORIDE 90 mmol/L (98-107); CO2 28 mmol/L (21-32); CREATININE 0.6 mg/dL (0.55-1.02); GLUCOSE,RANDOM 117 mg/dL (74-106); POTASSIUM 4.4 mmol/L (3.5-5.1); SGOT/AST 27 U/L (15-37); SGPT/ALT 48 U/L (12-78); SODIUM 125 mmol/L (136-145); TOT PROT 7.1 g/dl (6.4-8.2)
[2018-04-22 09:21] LABS: ALK PHOS 126 U/L (45-117)
[2018-04-22] MEDS ORDERED: SODIUM CHLORIDE 1,000 ML IV SCH (10:00)
[2018-04-22 10:31] LABS: URINE APPEARANCE SLCLOUDY; URINE BILIRUBIN NEGATIVE (<2.0 mg/dL); URINE COLOR YELLOW; URINE GLUCOSE (UA) NEGATIVE (NEGATIVE); URINE KETONE NEGATIVE (NEGATIVE); URINE NITRITE NEGATIVE (NEGATIVE); URINE PROTEIN NEGATIVE (NEGATIVE); URINE UROBILINOGEN NEGATIVE mg/dL (0.2-1.0)
[2018-04-22 10:33] LABS: URINE LEUK ESTERASE 1+ (NEGATIVE)
[2018-04-22 10:39] LABS: EPI CELLS RARE /HPF (FEW); URINE BACTERIA RARE /hpf (NONE SEEN); YEAST FEW
--- NOTE | 2018-04-22 11:03 | PDOC ---
*Physical Exam - Vital Signs Last Vital Signs Temp Pulse Resp BP Pulse Ox 98.9 F 75 18 160/75 100 04/22/18 07:36 04/22/18 09:00 04/22/18 09:00 04/22/18 09:00 04/22/18 09:00 - Physical Exam Comments: 04/22/18 11:03 alert, nad VSS, afebrile neuro nonfocal chronic L hip/pelvis pain since ORIF, nvi ED Treatment Course - LABORATORY CBC & Chemistry Diagram: 04/22/18 08:20 04/22/18 08:20 - ADDITIONAL ORDERS Additional order review: Laboratory Results 04/22/18 04/22/18 04/22/18 10:20 08:20 08:20 PT with INR 12.30 INR 1.09 Sodium 125 L Potassium 4.4 Chloride 90 L Carbon Dioxide 28 Anion Gap 7 L BUN 14 Creatinine 0.6 Creat Clearance w eGFR > 60 Random Glucose 117 H Calcium 9.3 Total Bilirubin 0.7 AST 27 ALT 48 Alkaline Phosphatase 126 H Creatine Kinase 54 Troponin I < 0.02 Total Protein 7.1 Albumin 4.5 TSH 2.08 Urine Color Yellow Urine Appearance Slcloudy Urine pH 6.0 Ur Specific [place] 1.020 Urine Protein Negative Urine Glucose (UA) Negative Urine Ketones Negative Urine Blood 1+ H Urine Nitrite Negative Urine Bilirubin Negative Urine Urobilinogen Negative Ur Leukocyte Esterase 1+ H 04/22/18 08:20 RBC 4.81 MCV 84.3 MCHC 35.0 RDW 13.0 MPV 7.2 L Neutrophils % 66.4 D Lymphocytes % 27.5 D Monocytes % 4.5 Eosinophils % 0.8 Basophils % 0.8 - Medications Given in the ED: ED Medications Discontinued Medications Generic Name Dose Route Start Last Admin Trade Name Johnq PRN Reason Stop Dose Admin Acetaminophen 1,000 mg 04/22/18 08:13 04/22/18 08:19 Ofirmev Injection - IVPB 04/22/18 08:14 1,000 mg ONCE ONE Administration Amlodipine Besylate 10 mg 04/22/18 08:54 04/22/18 09:14 Norvasc - PO 04/22/18 08:55 10 mg ONCE ONE Administration Lisinopril 20 mg 04/22/18 08:54 04/22/18 09:14 Prinivil PO 04/22/18 08:55 20 mg ONCE ONE Administration Medical Decision Making - Medical Decision Making 04/22/18 11:03 Patient seen and evaluated with the nurse practitioner. I agree with the overall evaluation, assessment, and management with the following summary of visit: 77-year-old female with history of CVA, seizures, left hip/pelvis fracture status post ORIF last year presents with seizures witnessed this morning. Patient seizure medications were recently changed 2 weeks ago secondary to heartburn, she was previously well controlled for presents now status post witnessed seizures this morning, accompanied by her home health aide and son. There was no injury with the seizure, the patient was initially postictal but has now recovered back to baseline. No recent infectious complaints, otherwise at baseline activity. Vitals are within normal limits Exam as noted 77-year-old female with history of seizures presents with seizures in the setting of recent antiepileptic medication adjustment. Rule out contributing factors such as infection or metabolic disarray, reassess. Labs are within normal limits, no leukocytosis, urinalysis is clear, sodium 125 so she was given some normal saline CT head showed no acute pathology, left hip/pelvis x-ray showed chronic fracture , chest x-ray showed no acute pathology We'll discuss seizure medication plan with Dr. Sharma, the patient's neurologist , and disposition accordingly. 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 *DC/Admit/Observation/Transfer Diagnosis at time of Disposition: Seizure - Referrals Referrals: Jackson Valencia MD, MD [Primary Care Provider] - - Patient Instructions - Post Discharge Activity
--- NOTE | 2018-04-22 11:31 | EKG ---
Test Reason : Blood Pressure : / mmHG Vent. Rate : 088 BPM Atrial Rate : 088 BPM P-R Int : 168 ms QRS Dur : 088 ms QT Int : 348 ms P-R-T Axes : 057 -01 047 degrees QTc Int : 421 ms NORMAL SINUS RHYTHM NORMAL ECG WHEN COMPARED WITH ECG OF 30-AUG-2017 22:46, VENT. RATE HAS INCREASED BY 29 BPM Confirmed by GAURAV ROSE MD ([id number]) on 04/22/2018 11:31:24 AM Referred By: Confirmed By:GAURAV ROSE MD
[2018-04-22] MEDS ORDERED: OXcarbazepine 300 MG TABLET (UD) PO ONE (12:13)
[2018-04-22 12:30] VITALS: BP 147/69; PULSE 76; TEMP 98
[2018-04-22] MEDS ORDERED: LORazepam 2 MG/ML SDV VIAL ONE (12:40)
== END 2018-04-22 13:11 | disposition home or self-care (01) ==
LOC: JER 07:36
PROC: 3E0337Z Introduction of Electrolytic and Water Balance Substance into Peripheral Vein, Percutaneous Approach (ICD-10-PCS; principal; 2018-04-22)
PROC: 3E033NZ Introduction of Analgesics, Hypnotics, Sedatives into Peripheral Vein, Percutaneous Approach (ICD-10-PCS; 2018-04-22)
PROC: 3E033NZ Introduction of Analgesics, Hypnotics, Sedatives into Peripheral Vein, Percutaneous Approach (ICD-10-PCS; 2018-04-22)
DX: G40.909 Epilepsy, unspecified, not intractable, without status epilepticus (principal); I10 Essential (primary) hypertension; E78.5 Hyperlipidemia, unspecified; E03.9 Hypothyroidism, unspecified; I69.854 Hemiplegia and hemiparesis following other cerebrovascular disease affecting left non-dominant side; Z87.81 Personal history of (healed) traumatic fracture
CPT/HCPCS: 36415; 70450-TC; 71045-TC-FY; 73523-TC-FY; 80053; 81003; 81015; 82550; 84443; 84484; 85025; 85610; 87086; 93005; 93010; 96361; 96374; 96375; 99282-25; J0131; J7030

== ENCOUNTER 2018-04-28 04:47 | Inpatient (IN) | payer OTHER, MEDICARE ==
--- NOTE | 2018-04-28 05:10 | PDOC ---
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 Last known well 0230. The patient lives with a nursing aid 2/2 difficulty walking. The nursing aid noted that the patient was groaning during her sleep just prior to arrival and when the aid went to check on the patient, the pt did not resocgnize her. En route to the ED the patient had a blood sugar of 100, BP of 190/74 and was only responsive to pain. On arrival the patient was not responsive to voice or sternal rub, had downward pointing babinski, able to track with eyes. The patient takes Keppra 600mg BID regularly. Patient is DNR and DNI. Past History - Past Medical History Allergies/Adverse Reactions: Allergies Allergy/AdvReac Type Severity Reaction Status Date / Time No Known Allergies Allergy Verified 04/28/18 05:27 Home Medications: Ambulatory Orders Levothyroxine [Synthroid -] 50 mcg PO DAILY 04/19/14 Lisinopril [Prinivil] 20 mg PO DAILY MDD 1 06/13/17 Rosuvastatin Calcium [Crestor] 10 mg PO DAILY 06/13/17 Ezetimibe 10 mg PO DAILY 04/22/18 Levetiracetam [Keppra] 600 mg PO BID 04/22/18 Oxcarbazepine [Trileptal -] 600 mg PO BID #28 tablet 04/22/18 Acetaminophen [Tylenol .Regular Strength -] 650 mg PO Q6H PRN tablet 05/02/18 Amlodipine Besylate [Norvasc -] 10 mg PO DAILY #30 tablet 05/02/18 Carvedilol [Coreg -] 6.25 mg PO BID #60 tablet 05/02/18 Docusate Sodium [Colace -] 100 mg PO TID #30 capsule 05/02/18 Lacosamide [Vimpat -] 50 mg PO BID #60 tab MDD 2 05/02/18 Sodium Chloride Tablet - 1 gm PO BID #60 tablet 05/02/18 CVA: Yes (brain aneurysm/ lt sided weakness) COPD: No HTN: Yes Hypercholesterolemia: Yes Thyroid Disease: Yes (hypo) - Surgical History Neurologic Surgery: Yes (aneurysm repair) - Immunization History Immunization Up to Date: Yes - Suicide/Smoking/Psychosocial Hx Smoking History: Never smoked Have you smoked in the past 12 months: No Hx Alcohol Use: No Drug/Substance Use Hx: No Substance Use Type: None Hx Substance Use Treatment: No NIH Stroke Scale - Last Known Well Date/Time & Onset Date Last Known Well: 04/28/18 Time Last Known Well: 02:30 - Initial Evaluation Level of consciousness: Coma Ask patient the month and their age: Both incorrect Ask patient to open & close eyes; make fist and let go: Both incorrect Best gaze (horizontal eye movement): Normal Visual field testing: No visual field loss Facial paresis (Show teeth/raise eyebrows/close eyes tight): Complete paralysis of one or both sides (Upper and lower face) Motor Function: Left Arm: No movement Motor Function: Right Arm: No movement Motor Function: Left Leg: No movement Motor Function: Right Leg: No movement Limb Ataxia: Present in two limbs Sensory(Use pinprick test arms,legs,trunk,face/side to side): Severe to total sensory loss Best language (Describe picture, name items, read sentences): Mute Dysarthria (read several words): Near unintelligible or unable to speak Extinction and Inattention: Profound jamari-inattention or extinction to more than one modality - Total Score NIH Stroke Scale Score: 37 tPA Exclusion Checklist 0-3hr - Time Elapsed Date last known well: 04/28/18 Time last known well: 02:30 Elaspsed time: 4 Day(s) and 16 Hour(s) and 19 Minutes - Thrombolytic Therapy Candidate Is the patient eligible for Thrombolytic Therapy?: No - Exclusion Criteria 0-3hr SBP greater than 185 or DBP greater than 110mmHg despite tx: No Recent IC/spinal surgery,head trauma or stroke w/in last 3mo: No Hx of previous IC hemorrhage, IC neoplasm, AVM or aneurysm: No Active internal bleeding: No Blding diathesis(low plt ct, inc PTT,INR>1.7 or use of NOAC): No Symptoms suggest subarachnoid hemorrhage: No CT demonstrates multilobar infarct(>1/3 cerebral hemiphere): No Arterial puncture at noncompressible site in previous 7 days: No Blood glucose concentration less than 50mg/dL (2.7mmol/L): No - Relative Exclusion Criteria 0-3h Life expectancy <1yr/severe co-morbid illness/INTERNET NETWORK SPECIALIST on admit: No : No Patient/family refused: No Rapid improvement: Yes Stroke severity too mild: No Recent acute PA (w/in previous 3 months): No Seizure at onset with postictal residual neuro impairments: No Major surgery or serious trauma w/in previous 14 days: No Recent GI or hemorrhage (w/in previous 21 days): No - Ineligibility reason(s) Reasons No tPA given: See reason(s) noted above Critical Care Time/MDM Note - Medical Decision Making Note: 04/28/18 05:35 Trupti - daughter - [phone] 77 year old with a history of seizure and CVA who is BIBA after nursing aid noted altered mental status and gurgling during sleep. Consider CVA vs TIA vs seizure vs hypoglycemia 04/28/18 06:24 At bedside the patient had systolic pressure 180 and elevated diastolic pressure to 150. During reevaluation the patient began having R hand drift and fasiculations that progressed up to the shoulder with neck turning towards the L. The patient's neurologist Dr. Berry contacted, he agrees that symptoms were consistent with seizure > CVA Patient loaded with [address] Goncalves accepted patient to telemetry Discharge Disposition - Diagnosis Seizure - Discharge Dispostion Disposition: VNS/HOME HEALTH CARE Condition at time of disposition: Guarded Last Admission D/C Date: 03/12/17 Decision to Admit order: Yes - Prescriptions - Referrals - Patient Instructions - Post Discharge Activity
--- NOTE | 2018-04-28 05:10 | PDOC ---
Attending Attestation - Resident Resident Name: Amaya Montero - ED Attending Attestation I have performed the following: I have examined & evaluated the patient, The case was reviewed & discussed with the resident, I agree w/resident's findings & plan - HPI HPI: 04/28/18 05:53 The patient is a 77 year old female accompanied with her aid brought in by EMS, with a significant past medical history of seizures, TIA, hypothyroidism, left hip/pelvis fracture status post ORIF, hypertension, and hyperlipidemia who presents to the emergency department for evaluation of altered mental status. As per aid, the patients last known well was at 230am. As per EMR, patient had a blood glucose level reading of 100. The patient was hospitalized 1 week ago, had seizure medication changed as per EMR. Of note, the patient has a DNR/DNI order as per the patients daughter. Unable to obtain ROS secondary to current condition. Allergies: NKDA Social History: No reported alcohol, cigarette, or drug use. Surgical History: Aneurysm repair PCP: Dr. Valencia - Physicial Exam PE: GENERAL: Afebrile. Awake, alert, and fully oriented, in no acute distress HEAD: No signs of trauma EYES: PERRLA, EOMI, sclera anicteric, conjunctiva clear NECK: Normal ROM, supple, no lymphadenopathy, JVD, or masses LUNGS: Breath sounds equal, clear to auscultation bilaterally. No wheezes, and no crackles HEART: Regular rate and rhythm, normal S1 and S2, no murmurs, rubs or gallops ABDOMEN: (+)gassy bowel sounds. Soft, nontender. No guarding, no rebound. No masses EXTREMITIES: Normal range of motion, no edema. No clubbing or cyanosis. No cords, erythema, or tenderness NEUROLOGICAL: (+)Right arm shaking. Cranial nerves II through XII grossly intact. Normal speech, normal gait SKIN: Warm, Dry, normal turgor, no rashes or lesions noted. <Vincent Gonzalez - Last Filed: 04/28/18 06:04> - Medical Decision Making 04/28/18 21:14 Pt comes with altered MS. SHe will be admitted for further eval. She has no sign of bleed or infarct. She has right upper extremity shaking/ ?partial; seizure. However when we distract her the shaking stops. Pt wakes up to speak on cell phone speaker with her cousin. Pt is requesting her son. When son arrives in the ER she is awake and speaking and alert. Pt will be admitted for neuro eval. <Gianna Shelby - Last Filed: 04/28/18 21:16> Attestations - Attestations Documentation prepared by Vincent Gonzalez, acting as nurses medical assistants phlebotomists for Gianna Shelby MD. <Vincent Gonzalez - Last Filed: 04/28/18 06:04>
[2018-04-28] MEDS: SODIUM CHLORIDE 1,000 ML IV SCH ×2 (05:28→13:23)
[2018-04-28 05:32] LABS: BASO % 1.3 % (0-2.0); EOS % 1.4 % (0-4.5); HEMATOCRIT 37.4 % (32.4-45.2); LYMPH % 23.8 % (8-40); MCH 29.7 pg (25.7-33.7); MCHC 34.8 g/dl (32.0-36.0); MEAN CELL VOLUME 85.4 fl (80-96); MEAN PLT VOLUME 6.7 fl (7.5-11.1); MONO % 6.6 % (3.8-10.2); NEUT % 66.9 % (42.8-82.8); PLATELET COUNT 188 K/MM3 (134-434); RBC 4.38 M/mm3 (3.60-5.2); RDW 13.1 % (11.6-15.6); WHITE BLOOD COUNT 4.3 K/mm3 (4.0-10.0)
[2018-04-28 05:33] LABS: URINE APPEARANCE CLOUDY; URINE BILIRUBIN NEGATIVE (<2.0 mg/dL); URINE COLOR LTYELLOW; URINE GLUCOSE (UA) NEGATIVE (NEGATIVE); URINE KETONE NEGATIVE (NEGATIVE); URINE LEUK ESTERASE NEGATIVE (NEGATIVE); URINE NITRITE NEGATIVE (NEGATIVE); URINE PROTEIN NEGATIVE (NEGATIVE); URINE UROBILINOGEN NEGATIVE mg/dL (0.2-1.0)
[2018-04-28] MEDS ORDERED: LORazepam 2 MG/ML SDV VIAL ONE (05:38)
[2018-04-28] MEDS ORDERED: levETIRAcetam 500 MG/5 ML INJECTION VIAL IVPB ONE ×2 (05:43→05:45)
[2018-04-28 05:53] LABS: ALBUMIN 4.1 g/dl (3.4-5.0); ANION GAP 9 (8-16); BILIRUBIN,TOTAL 0.5 mg/dL (0.2-1.0); BLOOD UREA NITROGEN 15 mg/dL (7-18); CALCIUM 8.9 mg/dL (8.5-10.1); CHLORIDE 91 mmol/L (98-107); CHOLESTEROL 247 mg/dL (50-200); CO2 27 mmol/L (21-32); CREATININE 0.5 mg/dL (0.55-1.02); GLUCOSE,RANDOM 115 mg/dL (74-106); POTASSIUM 4.1 mmol/L (3.5-5.1); SGOT/AST 23 U/L (15-37); SGPT/ALT 41 U/L (12-78); SODIUM 127 mmol/L (136-145); TOT PROT 6.8 g/dl (6.4-8.2); TRIGLYCERIDES 182 mg/dL (35-160)
[2018-04-28 05:54] LABS: ALK PHOS 119 U/L (45-117); HDL CHOLESTEROL 63 mg/dL (40-60)
[2018-04-28 05:56] LABS: INR 1.12 (0.82-1.09); PROTHROMBIN TIME (PATIENT) 12.7 SEC (9.7-13.0)
[2018-04-28 09:14] VITALS: BMI 17.7
[2018-04-28] MEDS ORDERED: ACETAMINOPHEN 325 MG TABLET (FP) PO PRN (09:49)
[2018-04-28] MEDS ORDERED: levETIRAcetam 250 MG TABLET (FP) PO SCH (10:00)
[2018-04-28] MEDS ORDERED: amLODIPine BESYLATE 2.5 MG TABLET (FP) PO SCH (10:00)
[2018-04-28] MEDS ORDERED: ACETAMINOPHEN 325 MG TABLET (FP) ONE (10:24)
[2018-04-28] MEDS ORDERED: PT OWN MED DRAWER 7, Y5N ONE ×2 (11:17→20:53)
[2018-04-28] MEDS ORDERED: LISINOPRIL 20 MG TABLET (FP) ONE (11:25)
[2018-04-28] MEDS ORDERED: HEPARIN NA (PORCINE) 5,000 UNITS/ML 1ML VIAL ONE (11:26)
[2018-04-28] MEDS ORDERED: LEVOTHYROXINE NA 25 MCG TABLET (FP) ONE (11:26)
[2018-04-28] MEDS: HEPARIN NA (PORCINE) 5,000 UNITS/ML 1ML VIAL SQ SCH ×2 (11:34→21:06)
[2018-04-28] MEDS: LISINOPRIL 20 MG TABLET (FP) PO SCH (11:35)
[2018-04-28] MEDS: LEVOTHYROXINE NA 50 MCG TABLET (FP) PO SCH (11:35)
[2018-04-28] MEDS: OXcarbazepine 300 MG TABLET (UD) PO SCH ×2 (11:35→22:30)
--- NOTE | 2018-04-28 12:52 | CONSULT ---
Consult - text type - Consultation Consultation Note: Neurology History of Present Illness 77 year old with past history of parietal and temporal old infacrts with residual L hand contracture and history of sezirue disorder who is BIBA for altered mental status.. The patient lives with a nursing aid 2/2 difficulty walking. The nursing aid noted that the patient was groaning during her sleep just prior to arrival and when the aid went to check on the patient, the pt did not resocgnize her. En route to the ED the patient had a blood sugar of 100, BP of 190/74 and was only responsive to pain. Currently on telemetry, son at bedside. Discussed with him in detail. Her blood pressure is >190's, discussed with nurse at bedside. Patient more somnolent. Discussed with pcp, will continue to monitor. CT head completed, awaiting report. Past History - Past Medical History Allergies/Adverse Reactions: Allergies Allergy/AdvReac Type Severity Reaction Status Date / Time No Known Allergies Allergy Verified 04/28/18 05:27 Home Medications: Ambulatory Orders Levothyroxine [Synthroid -] 50 mcg PO DAILY 04/19/14 Amlodipine Besylate [Norvasc -] 10 mg PO DAILY 02/23/17 Sertraline HCl 50 mg PO DAILY 02/23/17 Lisinopril [Prinivil] 20 mg PO DAILY MDD 1 06/13/17 Rosuvastatin Calcium [Crestor] 10 mg PO DAILY 06/13/17 Ezetimibe 10 mg PO DAILY 04/22/18 Levetiracetam [Keppra] 500 mg PO DAILY 04/22/18 Oxcarbazepine [Trileptal -] 300 mg PO BID 04/22/18 Oxcarbazepine [Trileptal -] 600 mg PO BID #28 tablet 04/22/18 Sertraline HCl [Zoloft] 25 mg PO DAILY 04/22/18 CVA: Yes (brain aneurysm/ lt sided weakness) COPD: No HTN: Yes Hypercholesterolemia: Yes Thyroid Disease: Yes (hypo) - Surgical History Neurologic Surgery: Yes (aneurysm repair) - Immunization History Immunization Up to Date: Yes - Suicide/Smoking/Psychosocial Hx Smoking History: Never smoked Have you smoked in the past 12 months: No Hx Alcohol Use: No Drug/Substance Use Hx: No Substance Use Type: None Hx Substance Use Treatment: No CBCD WBC 4.3 K/mm3 (4.0-10.0) 04/28/18 05:06 RBC 4.38 M/mm3 (3.60-5.2) 04/28/18 05:06 Hgb 13.0 GM/dL (10.7-15.3) 04/28/18 05:06 Hct 37.4 % (32.4-45.2) 04/28/18 05:06 MCV 85.4 fl (80-96) 04/28/18 05:06 MCHC 34.8 g/dl (32.0-36.0) 04/28/18 05:06 RDW 13.1 % (11.6-15.6) 04/28/18 05:06 Plt Count 188 K/MM3 (134-434) 04/28/18 05:06 MPV 6.7 fl (7.5-11.1) L 04/28/18 05:06 CMP Sodium 127 mmol/L (136-145) L 04/28/18 05:06 Potassium 4.1 mmol/L (3.5-5.1) 04/28/18 05:06 Chloride 91 mmol/L (98-107) L 04/28/18 05:06 Carbon Dioxide 27 mmol/L (21-32) 04/28/18 05:06 Anion Gap 9 (8-16) 04/28/18 05:06 BUN 15 mg/dL (7-18) 04/28/18 05:06 Creatinine 0.5 mg/dL (0.55-1.02) L 04/28/18 05:06 Creat Clearance w eGFR > 60 (>60) 04/28/18 05:06 Calcium 8.9 mg/dL (8.5-10.1) 04/28/18 05:06 Total Bilirubin 0.5 mg/dL (0.2-1.0) 04/28/18 05:06 AST 23 U/L (15-37) 04/28/18 05:06 ALT 41 U/L (12-78) 04/28/18 05:06 Alkaline Phosphatase 119 U/L (45-117) H 04/28/18 05:06 Total Protein 6.8 g/dl (6.4-8.2) 04/28/18 05:06 Albumin 4.1 g/dl (3.4-5.0) 04/28/18 05:[address] head reviewed Plan: 77 year olod with past history of parietal and temporal old infacrts with residual L hand contracture and history of seizure disorder who is BIBA for altered mental status.. The patient lives with a nursing aid 2/2 difficulty walking. The nursing aid noted that the patient was groaning during her sleep just prior to arrival and when the aid went to check on the patient, the pt did not resocgnize her. En route to the ED the patient had a blood sugar of 100, BP of 190/74 and was only responsive to pain. Currently on telemetry, son at bedside. Discussed with him in detail. Her blood pressure is >190's, discussed with nurse at bedside. Patient more somnolent. Discussed with pcp, will continue to monitor. CT head completed, awaiting report. Can continue Keppra, will make it IV.
--- NOTE | 2018-04-28 13:21 | HP ---
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 [employer] History of Recent Travel: No Home Medications - Allergies Allergies/Adverse Reactions: Allergies Allergy/AdvReac Type Severity Reaction Status Date / Time No Known Allergies Allergy Verified 04/28/18 05:27 - Home Medications Home Medications: Ambulatory Orders Levothyroxine [Synthroid -] 50 mcg PO DAILY 04/19/14 Amlodipine Besylate [Norvasc -] 10 mg PO DAILY 02/23/17 Lisinopril [Prinivil] 20 mg PO DAILY MDD 1 06/13/17 Rosuvastatin Calcium [Crestor] 10 mg PO DAILY 06/13/17 Ezetimibe 10 mg PO DAILY 04/22/18 Levetiracetam [Keppra] 600 mg PO BID 04/22/18 Oxcarbazepine [Trileptal -] 600 mg PO BID #28 tablet 04/22/18 Sertraline HCl [Zoloft] 25 mg PO DAILY 04/22/18 Family Disease History - Family Disease History Family Disease History: Other: Father ( 70: unclear cause), Mother ( 66 : [place]), Brother (3 bros: , no cancer), Sister (3 sis: , no cancer), Son ( 1 son: healthy) Review of Systems - Review of Systems Constitutional: reports: No Symptoms Eyes: reports: No Symptoms HENT: reports: No Symptoms Neck: reports: No Symptoms Cardiovascular: reports: No Symptoms Respiratory: reports: No Symptoms Gastrointestinal: reports: No Symptoms Genitourinary: reports: No Symptoms Breasts: reports: No Symptoms Reported Musculoskeletal: reports: No Symptoms Integumentary: reports: No Symptoms Neurological: reports: No Symptoms Endocrine: reports: No Symptoms Hematology/Lymphatic: reports: No Symptoms Psychiatric: reports: No Symptoms Physical Examination Vital Signs: Vital Signs Temperature 98.0 F 04/28/18 12:00 Pulse Rate 66 04/28/18 12:00 Respiratory Rate 18 04/28/18 12:00 Blood Pressure 196/79 04/28/18 12:00 O2 Sat by Pulse Oximetry (%) 100 04/28/18 08:43 Constitutional: Yes: Well Nourished, No Distress, Calm Cardiovascular: Yes: Regular Rate and Rhythm Respiratory: Yes: Regular Gastrointestinal: Yes: Normal Bowel Sounds, Soft Musculoskeletal: Yes: WNL Extremities: Yes: WNL Edema: No Peripheral Pulses WNL: Yes Neurological: Yes: Alert, Oriented Psychiatric: Yes: Alert, Oriented Labs: CBC, BMP 04/28/18 05:06 04/28/18 05:06 Problem List - Problems (1) Altered mental status Assessment/Plan: -CT head results pending -Seen by Neurology -Tele monitoring -UA negative -Keppra increased to 1000 mg BID Code(s): R41.82 - ALTERED MENTAL STATUS, UNSPECIFIED (2) Seizure disorder Assessment/Plan: -Seen by Neurology -CT head results pending -Keppra increased to 100 mg BID IV Code(s): G40.909 - EPILEPSY, UNSP, NOT INTRACTABLE, WITHOUT STATUS EPILEPTICUS (3) HTN (hypertension) Assessment/Plan: -On lisinopril -Add metoprolol tart 5 mg -Cardiology consult Code(s): I10 - ESSENTIAL (PRIMARY) HYPERTENSION (4) Hyponatremia Assessment/Plan: -N/S @ 42 cc /hr -Nephrology consult Code(s): E87.1 - HYPO-OSMOLALITY AND HYPONATREMIA Assessment/Plan see problem list DVT prophylaxis Dispo: unknown at this time
[2018-04-28] MEDS: levETIRAcetam 500 MG/5 ML INJECTION VIAL IVPB SCH ×2 (13:22→21:06)
[2018-04-28] MEDS: ROSUVASTATIN CA 10 MG TABLET (FP) PO SCH (13:22)
[2018-04-28] MEDS: EZETIMIBE 10 MG TABLET (FP) PO SCH (13:22)
[2018-04-28] MEDS: SERTRALINE HCL 25 MG TABLET (FP) PO SCH (13:23)
[2018-04-28] MEDS: METOPROLOL TARTRATE 25 MG TABLET (FP) PO SCH ×2 (13:42→21:06)
[2018-04-28] MEDS: METOPROLOL TARTRATE 5 MG/5 ML VIAL IVPUSH PRN ×2 (13:47→18:28)
[2018-04-28] MEDS: ACETAMINOPHEN 1000 MG/100 ML VIAL (NON FORMULARY) IVPB PRN (14:01)
[2018-04-28 14:34] LABS: ANION GAP 8 (8-16); BLOOD UREA NITROGEN 11 mg/dL (7-18); CALCIUM 8.7 mg/dL (8.5-10.1); CHLORIDE 95 mmol/L (98-107); CO2 25 mmol/L (21-32); CREATININE 0.4 mg/dL (0.55-1.02); GLUCOSE,RANDOM 90 mg/dL (74-106); SODIUM 128 mmol/L (136-145)
[2018-04-28 14:35] LABS: POTASSIUM 4.2 mmol/L (3.5-5.1)
--- NOTE | 2018-04-28 16:25 | CON.NEP ---
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 [employer] History of Recent Travel: No Home Medications - Allergies Allergies/Adverse Reactions: Allergies Allergy/AdvReac Type Severity Reaction Status Date / Time No Known Allergies Allergy Verified 04/28/18 05:27 - Home Medications Home Medications: Ambulatory Orders Levothyroxine [Synthroid -] 50 mcg PO DAILY 04/19/14 Amlodipine Besylate [Norvasc -] 10 mg PO DAILY 02/23/17 Lisinopril [Prinivil] 20 mg PO DAILY MDD 1 06/13/17 Rosuvastatin Calcium [Crestor] 10 mg PO DAILY 06/13/17 Ezetimibe 10 mg PO DAILY 04/22/18 Levetiracetam [Keppra] 600 mg PO BID 04/22/18 Oxcarbazepine [Trileptal -] 600 mg PO BID #28 tablet 04/22/18 Sertraline HCl [Zoloft] 25 mg PO DAILY 04/22/18 Family Disease History - Family Disease History Family Disease History: Other: Father ( 70: unclear cause), Mother ( 66 : [place]), Brother (3 bros: , no cancer), Sister (3 sis: , no cancer), Son ( 1 son: healthy) Nephrology Consult - Height Height: 5 ft 6 in - Weight Weight: 110 lb - BMI Body Mass Index (BMI): 17.7 - Lab Results CBC,BMP: CBC, BMP 04/28/18 05:06 04/28/18 14:00 Anion Gap: Anion Gap Anion Gap 8 (8-16) 04/28/18 14:00 - Physical Examination Vital Signs: Vital Signs Temperature 98.1 F 04/28/18 14:00 Pulse Rate 56 L 04/28/18 14:00 Respiratory Rate 19 04/28/18 14:00 Blood Pressure 178/68 04/28/18 14:00 O2 Sat by Pulse Oximetry (%) 100 04/28/18 13:34
[2018-04-28] MEDS ORDERED: LORazepam 0.5 MG TABLET PO ONE (21:00)
[2018-04-29 05:47] LABS: BASO % 2.2 % (0-2.0); EOS % 3.3 % (0-4.5); HEMATOCRIT 29.2 % (32.4-45.2); HEMOGLOBIN 10.5 GM/dL (10.7-15.3); LYMPH % 28.9 % (8-40); MCH 30.3 pg (25.7-33.7); MEAN CELL VOLUME 84.2 fl (80-96); MEAN PLT VOLUME 6.5 fl (7.5-11.1); MONO % 10.9 % (3.8-10.2); NEUT % 54.7 % (42.8-82.8); PLATELET COUNT 153 K/MM3 (134-434); RBC 3.46 M/mm3 (3.60-5.2); RDW 12.6 % (11.6-15.6); WHITE BLOOD COUNT 3.7 K/mm3 (4.0-10.0)
[2018-04-29] MEDS: LEVOTHYROXINE NA 50 MCG TABLET (FP) PO SCH (06:20)
[2018-04-29] MEDS: SODIUM CHLORIDE 1,000 ML IV SCH (06:21)
[2018-04-29 06:44] LABS: ALBUMIN 3.1 g/dl (3.4-5.0); ANION GAP 8 (8-16); BILIRUBIN,TOTAL 0.4 mg/dL (0.2-1.0); BLOOD UREA NITROGEN 13 mg/dL (7-18); CALCIUM 8.1 mg/dL (8.5-10.1); CHLORIDE 96 mmol/L (98-107); CO2 26 mmol/L (21-32); GLUCOSE,RANDOM 91 mg/dL (74-106); POTASSIUM 3.9 mmol/L (3.5-5.1); SGOT/AST 17 U/L (15-37); SGPT/ALT 30 U/L (12-78); SODIUM 130 mmol/L (136-145); TOT PROT 5.3 g/dl (6.4-8.2)
[2018-04-29 07:09] LABS: ALK PHOS 106 U/L (45-117); CREATININE 0.5 mg/dL (0.55-1.02)
[2018-04-29] MEDS ORDERED: PT OWN MED DRAWER 7, Y5N ONE (09:05)
--- NOTE | 2018-04-29 09:09 | PN ---
Progress Note (short form) - Note Progress Note: Patient awake today. Reports being seen by Dr. Sharma in the past and would like to have him follow up. Informed insurance claims clerk who will adjust and contact Dr. Sharma.
[2018-04-29] MEDS: levETIRAcetam 500 MG/5 ML INJECTION VIAL IVPB SCH (09:32)
[2018-04-29] MEDS: HEPARIN NA (PORCINE) 5,000 UNITS/ML 1ML VIAL SQ SCH ×2 (09:32→21:26)
[2018-04-29] MEDS: ROSUVASTATIN CA 10 MG TABLET (FP) PO SCH (09:32)
[2018-04-29] MEDS: METOPROLOL TARTRATE 25 MG TABLET (FP) PO SCH ×2 (09:32→21:26)
[2018-04-29] MEDS: EZETIMIBE 10 MG TABLET (FP) PO SCH (09:33)
[2018-04-29] MEDS: amLODIPine BESYLATE 10 MG TABLET (FP) PO SCH (09:33)
[2018-04-29] MEDS: OXcarbazepine 300 MG TABLET (UD) PO SCH (09:33)
[2018-04-29] MEDS: LISINOPRIL 20 MG TABLET (FP) PO SCH (09:33)
[2018-04-29] MEDS: SERTRALINE HCL 25 MG TABLET (FP) PO SCH (09:34)
--- NOTE | 2018-04-29 10:24 | EKG ---
Test Reason : Blood Pressure : / mmHG Vent. Rate : 078 BPM Atrial Rate : 078 BPM P-R Int : 178 ms QRS Dur : 082 ms QT Int : 380 ms P-R-T Axes : 062 025 082 degrees QTc Int : 433 ms NORMAL SINUS RHYTHM CANNOT RULE OUT SEPTAL INFARCT , AGE UNDETERMINED ABNORMAL ECG WHEN COMPARED WITH ECG OF 22-APR-2018 07:56, NO SIGNIFICANT CHANGE WAS FOUND Confirmed by CONI PARKER MD ([id number]) on 04/29/2018 10:24:25 AM Referred By: Confirmed By:CONI PARKER MD
[2018-04-29] MEDS: ONDANSETRON 4 MG/2 ML VIAL IVPUSH PRN (11:55)
--- NOTE | 2018-04-29 11:56 | PN ---
Progress Note, Physician Chief Complaint: patient seen and examined in the bed complaining bout iv line and wants to be repositioned - Current Medication List Current Medications: Active Medications Acetaminophen (Ofirmev Injection -) 1,000 mg IVPB Q6H PRN PRN Reason: PAIN OR FEVER Last Admin: 04/28/18 14:01 Dose: 1,000 mg Amlodipine Besylate (Norvasc -) 10 mg PO DAILY [facility] [place] Last Admin: 04/29/18 09:33 Dose: 10 mg Ezetimibe (Zetia -) 10 mg PO DAILY [facility] [place] Last Admin: 04/29/18 09:33 Dose: 10 mg Heparin Sodium (Porcine) (Heparin -) 5,000 unit SQ BID [facility] [place] Last Admin: 04/29/18 09:32 Dose: 5,000 unit Sodium Chloride (Normal Saline -) 1,000 mls @ 42 mls/hr IV ASDIR [facility] [place] Last Admin: 04/29/18 06:21 Dose: 42 mls/hr Levetiracetam (Keppra Injection -) 1,000 mg IVPB BID [facility] [place] Last Admin: 04/29/18 09:32 Dose: 1,000 mg Levothyroxine Sodium (Synthroid -) 50 mcg PO AM [facility] [place] Last Admin: 04/29/18 06:20 Dose: 50 mcg Lisinopril (Prinivil) 20 mg PO DAILY [facility] [place] Last Admin: 04/29/18 09:33 Dose: 20 mg Metoprolol Tartrate (Lopressor -) 25 mg PO BID [facility] [place] Last Admin: 04/29/18 09:32 Dose: 25 mg Metoprolol Tartrate (Lopressor Injection -) 5 mg IVPUSH Q4H PRN PRN Reason: HYPERTENSION Last Admin: 04/28/18 18:28 Dose: 5 mg Ondansetron HCl (Zofran Injection) 4 mg IVPUSH Q6H PRN PRN Reason: NAUSEA Oxcarbazepine (Trileptal -) 600 mg PO BID [facility] [place] Last Admin: 04/29/18 09:33 Dose: 600 mg Rosuvastatin Calcium (Crestor -) 10 mg PO DAILY [facility] [place] Last Admin: 04/29/18 09:32 Dose: 10 mg Sertraline HCl (Zoloft -) 25 mg PO DAILY [facility] [place] Last Admin: 04/29/18 09:34 Dose: 25 mg - Objective Vital Signs: Vital Signs Temperature 97.7 F 04/29/18 08:00 Pulse Rate 66 04/29/18 08:00 Respiratory Rate 12 04/29/18 08:00 Blood Pressure 188/62 04/29/18 08:00 O2 Sat by Pulse Oximetry (%) 96 04/28/18 22:00 Constitutional: Yes: Thin Cardiovascular: Yes: Regular Rate and Rhythm, S1, S2 Respiratory: Yes: CTA Bilaterally, Diminished (at bases), On Nasal O2 Gastrointestinal: Yes: Normal Bowel Sounds, Soft Edema: No Neurological: Yes: Alert (able to make her needs known) Labs: CBC, BMP 04/29/18 05:30 04/29/18 05:30 INR, PTT INR 1.12 (0.82-1.09) 04/28/18 05:06 Problem List - Problems (1) Altered mental status Assessment/Plan: ct head negative na is now improved from 127 to 130 ivf slowly correcting sodium neurology on board keppra dose increased Code(s): R41.82 - ALTERED MENTAL STATUS, UNSPECIFIED (2) Seizure Assessment/Plan: iv keppra dose increased on trileptal as well dr Sharma to see the patient Code(s): R56.9 - UNSPECIFIED CONVULSIONS (3) HTN (hypertension) Assessment/Plan: norvasc and lopressor lisinopril Code(s): I10 - ESSENTIAL (PRIMARY) HYPERTENSION (4) Hyponatremia Assessment/Plan: ivf fluids renal evaluation Code(s): E87.1 - HYPO-OSMOLALITY AND HYPONATREMIA (5) Hypothyroid Assessment/Plan: synthroid tsh noted Code(s): E03.9 - HYPOTHYROIDISM, UNSPECIFIED Qualifiers: Hypothyroidism type: unspecified Qualified Code(s): E03.9 - Hypothyroidism , unspecified Assessment/Plan dvt ppx DNR/DNI
--- NOTE | 2018-04-29 12:39 | PN ---
Progress Note, Physician History of Present Illness: Pt seen and examined at bedside. She is agitated and not giving much history. She requests to see Dr Sharma. Spoke with family and pt had AED adjusted a few weeks ago. Pt denies shortness of breath. - Current Medication List Current Medications: Active Medications Acetaminophen (Ofirmev Injection -) 1,000 mg IVPB Q6H PRN PRN Reason: PAIN OR FEVER Last Admin: 04/28/18 14:01 Dose: 1,000 mg Amlodipine Besylate (Norvasc -) 10 mg PO DAILY [facility] Last Admin: 04/29/18 09:33 Dose: 10 mg Ezetimibe (Zetia -) 10 mg PO DAILY [facility] Last Admin: 04/29/18 09:33 Dose: 10 mg Heparin Sodium (Porcine) (Heparin -) 5,000 unit SQ BID [facility] Last Admin: 04/29/18 09:32 Dose: 5,000 unit Sodium Chloride (Normal Saline -) 1,000 mls @ 42 mls/hr IV ASDIR [facility] Last Admin: 04/29/18 06:21 Dose: 42 mls/hr Levetiracetam (Keppra Injection -) 1,000 mg IVPB BID [facility] Last Admin: 04/29/18 09:32 Dose: 1,000 mg Levothyroxine Sodium (Synthroid -) 50 mcg PO AM [facility] Last Admin: 04/29/18 06:20 Dose: 50 mcg Lisinopril (Prinivil) 20 mg PO DAILY [facility] Last Admin: 04/29/18 09:33 Dose: 20 mg Metoprolol Tartrate (Lopressor -) 25 mg PO BID [facility] Last Admin: 04/29/18 09:32 Dose: 25 mg Metoprolol Tartrate (Lopressor Injection -) 5 mg IVPUSH Q4H PRN PRN Reason: HYPERTENSION Last Admin: 04/28/18 18:28 Dose: 5 mg Ondansetron HCl (Zofran Injection) 4 mg IVPUSH Q6H PRN PRN Reason: NAUSEA Last Admin: 04/29/18 11:55 Dose: 4 mg Oxcarbazepine (Trileptal -) 600 mg PO BID [facility] Last Admin: 04/29/18 09:33 Dose: 600 mg Rosuvastatin Calcium (Crestor -) 10 mg PO DAILY [facility] Last Admin: 04/29/18 09:32 Dose: 10 mg Sertraline HCl (Zoloft -) 25 mg PO DAILY [facility] Last Admin: 04/29/18 09:34 Dose: 25 mg - Objective Vital Signs: Vital Signs Temperature 97.7 F 04/29/18 08:00 Pulse Rate 66 04/29/18 08:00 Respiratory Rate 12 04/29/18 08:00 Blood Pressure 157/60 04/29/18 11:00 O2 Sat by Pulse Oximetry (%) 96 04/28/18 22:00 Constitutional: Yes: Anxious Eyes: Yes: Conjunctiva Clear HENT: Yes: Atraumatic Neck: Yes: Supple Cardiovascular: Yes: S1, S2 Respiratory: Yes: On Nasal O2 Gastrointestinal: Yes: Soft Genitourinary: Yes: Incontinence Musculoskeletal: Yes: WNL Edema: No Neurological: Yes: Oriented Psychiatric: Yes: Agitated Labs: CBC, BMP 04/29/18 05:30 04/29/18 05:30 INR, PTT INR 1.12 (0.82-1.09) 04/28/18 05:06 Problem List - Problems (1) Altered mental status Code(s): R41.82 - ALTERED MENTAL STATUS, UNSPECIFIED (2) HTN (hypertension) Code(s): I10 - ESSENTIAL (PRIMARY) HYPERTENSION (3) Seizure Code(s): R56.9 - UNSPECIFIED CONVULSIONS Assessment/Plan Current Medications Generic Name Dose Route Start Last Admin Trade Name Freq PRN Reason Stop Dose Admin Acetaminophen 1,000 mg 04/28/18 13:51 04/28/18 14:01 Ofirmev Injection - IVPB 1,000 mg Q6H PRN Administration PAIN OR FEVER Amlodipine Besylate 10 mg 04/28/18 10:20 04/29/18 09:33 Norvasc - PO 10 mg DAILY [facility] Administration Ezetimibe 10 mg 04/28/18 10:00 04/29/18 09:33 Zetia - PO 10 mg DAILY [facility] Administration Heparin Sodium (Porcine) 5,000 unit 04/28/18 10:00 04/29/18 09:32 Heparin - SQ 5,000 unit BID [facility] Administration Sodium Chloride 1,000 mls @ 42 mls/hr 04/28/18 05:15 04/29/18 06:21 Normal Saline - IV 42 mls/hr ASDIR [facility] Administration Levetiracetam 1,000 mg 04/28/18 13:00 04/29/18 09:32 Keppra Injection - IVPB 1,000 mg BID [facility] Administration Levothyroxine Sodium 50 mcg 04/28/18 10:00 04/29/18 06:20 Synthroid - PO 50 mcg AM [facility] Administration Lisinopril 20 mg 04/28/18 10:00 04/29/18 09:33 Prinivil PO 20 mg DAILY [facility] Administration Metoprolol Tartrate 25 mg 04/28/18 13:30 04/29/18 09:32 Lopressor - PO 25 mg BID [facility] Administration Metoprolol Tartrate 5 mg 04/28/18 13:30 04/28/18 18:28 Lopressor Injection - IVPUSH 5 mg Q4H PRN Administration HYPERTENSION Ondansetron HCl 4 mg 04/29/18 11:48 04/29/18 11:55 Zofran Injection IVPUSH 4 mg Q6H PRN Administration NAUSEA Oxcarbazepine 600 mg 04/28/18 10:00 04/29/18 09:33 Trileptal - PO 600 mg BID [facility] Administration Rosuvastatin Calcium 10 mg 04/28/18 10:00 04/29/18 09:32 Crestor - PO 10 mg DAILY [facility] Administration Sertraline HCl 25 mg 04/28/18 10:00 04/29/18 09:34 Zoloft - PO 25 mg DAILY [facility] Administration Laboratory Tests 06/07/17 06/13/17 04/22/18 09:03 15:00 08:20 Sodium 134 L 130 L 125 L Ur Specific [place] Urine Protein Urine Blood 04/28/18 04/28/18 04/28/18 05:06 05:06 14:00 Sodium 127 L 128 L Ur Specific [place] 1.013 Urine Protein Negative Urine Blood Negative 04/29/18 05:30 Sodium 130 L Ur Specific [place] Urine Protein Urine Blood Impression 1. hyponatremia 2. epilepsy 3. HTN 4. altered mental status 5. hypothyroidism 6. HLD Plan - send urine and plasma osm - send urine sodium - pt has been on fluids and this can effect urine studies - sodium is improving - discussed plan at great length with family and pt - monitor sodium levels - can be liberal with salt intake - restrict free water - sertraline can also cause hyponatremia, recommend psych eval for meds maintenance - na was 125 on 04/22 - will follow pt - discussed with nurse Dr Cho
--- NOTE | 2018-04-29 13:11 | CON.CARD ---
Consult Consult Specialty:: Cardiology Referred by:: Jono Rossi NP Reason for Consultation:: Cardiac evaluation - History of Present Illness Chief Complaint: Altered mental status History of Present Illness: Patient is a 77 year old female known to our service with underlying history of hemorrhagic CVA with left sided weakness, seizure, history of cerebral aneurysm , ICH post craniotomy, HTN, hypercholeterolemia, hypothyroidism and anxiety who presents with altered mental status. Patient was found with a low blood glucose. She resides at [place] where she had difficulty walking. She was also found to be hypertensive at 190/74. She is awake and alert in ICU today. She denies chest pain, SOB or palpitations. She denies paroxysmal nocturnal dyspnea or orthopnea. She denies nausea, vomiting, diarrhea or abdominal pain. She denies fever or chills. She denies headache or lightheadedness. Neurology service with Dr. Castrejon saw patient but she requests Dr. Sharma to see her. 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 [employer] History of Recent Travel: No Home Medications - Allergies Allergies/Adverse Reactions: Allergies Allergy/AdvReac Type Severity Reaction Status Date / Time No Known Allergies Allergy Verified 04/28/18 05:27 - Home Medications Home Medications: Ambulatory Orders Levothyroxine [Synthroid -] 50 mcg PO DAILY 04/19/14 Amlodipine Besylate [Norvasc -] 10 mg PO DAILY 02/23/17 Lisinopril [Prinivil] 20 mg PO DAILY MDD 1 06/13/17 Rosuvastatin Calcium [Crestor] 10 mg PO DAILY 06/13/17 Ezetimibe 10 mg PO DAILY 04/22/18 Levetiracetam [Keppra] 600 mg PO BID 04/22/18 Oxcarbazepine [Trileptal -] 600 mg PO BID #28 tablet 04/22/18 Sertraline HCl [Zoloft] 25 mg PO DAILY 04/22/18 Family Disease History - Family Disease History Family Disease History: Other: Father ( 70: unclear cause), Mother ( 66 : [place]), Brother (3 bros: , no cancer), Sister (3 sis: , no cancer), Son ( 1 son: healthy) Review of Systems - Review of Systems Constitutional: denies: Chills, Fever Cardiovascular: denies: Chest Pain, Palpitations, Shortness of Breath Respiratory: denies: Cough, Hemoptysis, Orthopnea, PND, SOB, SOB on Exertion Gastrointestinal: denies: Abdominal Pain, Constipation, Diarrhea, Melena, Nausea , Rectal Bleeding, Vomiting Genitourinary: denies: Dysuria, Hematuria Neurological: reports: Confusion. denies: Dizziness, Headache, Seizure, Syncope Vital Signs: Vital Signs Temperature 97.7 F 04/29/18 08:00 Pulse Rate 66 04/29/18 08:00 Respiratory Rate 12 04/29/18 08:00 Blood Pressure 157/60 04/29/18 11:00 O2 Sat by Pulse Oximetry (%) 96 04/28/18 22:00 Eyes: Yes: PERRL HENT: Yes: Atraumatic Neck: Yes: Supple Respiratory: Yes: CTA Bilaterally Gastrointestinal: Yes: Normal Bowel Sounds, Soft. No: Tenderness Cardiovascular: Yes: Regular Rate and Rhythm JVD: No Carotid Bruit: No PMI: Non-Displaced Heart Sounds: Yes: S1, S2. No: Gallop Murmur: No: Systolic Murmur Edema: No - Other Data Labs, Other Data: CBC, BMP 04/29/18 05:30 04/29/18 05:30 INR, PTT INR 1.12 (0.82-1.09) 04/28/18 05:06 Imaging - Results Cat Scan: Report Reviewed (Head CT) EKG: Report Reviewed Problem List - Problems (1) Altered mental status Code(s): R41.82 - ALTERED MENTAL STATUS, UNSPECIFIED Qualifiers: Altered mental status type: unspecified Qualified Code(s): R41.82 - Altered mental status, unspecified (2) HTN (hypertension) Code(s): I10 - ESSENTIAL (PRIMARY) HYPERTENSION Qualifiers: Hypertension type: essential hypertension Qualified Code(s): I10 - Essential (primary) hypertension (3) Cerebrovascular accident (CVA) Code(s): I63.9 - CEREBRAL INFARCTION, UNSPECIFIED Qualifiers: CVA mechanism: other Qualified Code(s): I63.8 - Other cerebral infarction (4) HLD (hyperlipidemia) Code(s): E78.5 - HYPERLIPIDEMIA, UNSPECIFIED Qualifiers: Hyperlipidemia type: pure hypercholesterolemia Qualified Code(s): E78.00 - Pure hypercholesterolemia, unspecified (5) History of intracranial hemorrhage Code(s): Z86.79 - PERSONAL HISTORY OF OTHER DISEASES OF THE CIRCULATORY SYSTEM (6) History of surgery for cerebral aneurysm Code(s): Z98.890 - OTHER SPECIFIED POSTPROCEDURAL STATES (7) Hyponatremia Code(s): E87.1 - HYPO-OSMOLALITY AND HYPONATREMIA (8) Hypothyroid Code(s): E03.9 - HYPOTHYROIDISM, UNSPECIFIED Qualifiers: Hypothyroidism type: unspecified Qualified Code(s): E03.9 - Hypothyroidism , unspecified (9) Labile hypertension Code(s): I10 - ESSENTIAL (PRIMARY) HYPERTENSION Assessment/Plan 1. Altered mental status - returned to baseline 2. HTN 3. Hypercholesterolemia 4. History of ICH hemorrhagic CVA with residual left sided weakness 5. Hypothyroidism 6. Hyponatremia PLAN: 1. Continue Metoprolol, Prinivil and Amlodipine. IV Lopressor if needed 2. Rosuvastatin and Zetia 3. Neuro input to follow 4. Correct NA Further plans are to follow Enoch Shen MD
[2018-04-29] MEDS: ACETAMINOPHEN 325 MG TABLET (FP) PO PRN (14:04)
--- NOTE | 2018-04-29 18:56 | PN ---
Progress Note, Physician History of Present Illness: events noted --- pt known to me , hx of S/p hemorrhagic stroke with residual left hemiparesis; seen last by me in office on 04/11/18 was on Keppra for seizures but there was a question of GI upset and RX was changed to TRILEPTAL -couple weeks back. now comes in for altered mental state, hyponatremia and uncontrolled hypertension. CT HEAD No intracranial hemorrhage is seen. There has been no definite interval change in comparison to prior CT exams of 04/22/2018, 06/13/2017 and 05/21/2017. Status post right temporoparietal craniotomy. No acute infarct is identified within the limitations of CT. Chronic right frontal cortical/subcortical infarct laterally at the high convexity level. Chronic right temporal cortical infarct laterally. No obstructive hydrocephalus is seen. There is no extra-axial fluid collection. No gross mass lesion is identified noncontrast imaging. Impression: No definite interval change is seen as discussed above. - Current Medication List Current Medications: Active Medications Acetaminophen (Ofirmev Injection -) 1,000 mg IVPB Q6H PRN PRN Reason: PAIN OR FEVER Last Admin: 04/28/18 14:01 Dose: 1,000 mg Acetaminophen (Tylenol -) 650 mg PO Q6H PRN PRN Reason: PAIN OR FEVER Last Admin: 04/29/18 14:04 Dose: 650 mg Amlodipine Besylate (Norvasc -) 10 mg PO DAILY [facility] Last Admin: 04/29/18 09:33 Dose: 10 mg Ezetimibe (Zetia -) 10 mg PO DAILY [facility] Last Admin: 04/29/18 09:33 Dose: 10 mg Heparin Sodium (Porcine) (Heparin -) 5,000 unit SQ BID [facility] Last Admin: 04/29/18 09:32 Dose: 5,000 unit Sodium Chloride (Normal Saline -) 1,000 mls @ 42 mls/hr IV ASDIR [facility] Last Admin: 04/29/18 06:21 Dose: 42 mls/hr Levetiracetam (Keppra Injection -) 1,000 mg IVPB BID [facility] Last Admin: 04/29/18 09:32 Dose: 1,000 mg Levothyroxine Sodium (Synthroid -) 50 mcg PO AM [facility] Last Admin: 04/29/18 06:20 Dose: 50 mcg Lisinopril (Prinivil) 20 mg PO DAILY [facility] Last Admin: 04/29/18 09:33 Dose: 20 mg Metoprolol Tartrate (Lopressor -) 25 mg PO BID [facility] Last Admin: 04/29/18 09:32 Dose: 25 mg Metoprolol Tartrate (Lopressor Injection -) 5 mg IVPUSH Q4H PRN PRN Reason: HYPERTENSION Last Admin: 04/28/18 18:28 Dose: 5 mg Ondansetron HCl (Zofran Injection) 4 mg IVPUSH Q6H PRN PRN Reason: NAUSEA Last Admin: 04/29/18 11:55 Dose: 4 mg Oxcarbazepine (Trileptal -) 600 mg PO BID [facility] Last Admin: 04/29/18 09:33 Dose: 600 mg Rosuvastatin Calcium (Crestor -) 10 mg PO DAILY [facility] Last Admin: 04/29/18 09:32 Dose: 10 mg Sertraline HCl (Zoloft -) 25 mg PO DAILY [facility] Last Admin: 04/29/18 09:34 Dose: 25 mg - Objective Vital Signs: Vital Signs Temperature 97.8 F 04/29/18 18:00 Pulse Rate 66 04/29/18 18:00 Respiratory Rate 16 04/29/18 18:00 Blood Pressure 132/78 04/29/18 18:00 O2 Sat by Pulse Oximetry (%) 96 04/28/18 22:00 Neurological: Yes: Alert (left hemipresis residual) Labs: CBC, BMP 04/29/18 05:30 04/29/18 05:30 INR, PTT INR 1.12 (0.82-1.09) 04/28/18 05:06 Problem List - Problems (1) Drug side effects Code(s): T88.7XXA - UNSP ADVERSE EFFECT OF DRUG OR MEDICAMENT, INIT ENCNTR (2) Altered mental status Code(s): R41.82 - ALTERED MENTAL STATUS, UNSPECIFIED (3) Seizure Code(s): R56.9 - UNSPECIFIED CONVULSIONS (4) Cerebrovascular accident (CVA) Code(s): I63.9 - CEREBRAL INFARCTION, UNSPECIFIED Qualifiers: CVA mechanism: other Qualified Code(s): I63.8 - Other cerebral infarction Assessment/Plan pt known to me , hx of S/p hemorrhagic stroke with residual left hemiparesis; seen last by me in office on 04/11/18 was on Keppra for seizures but there was a question of GI upset and RX was changed to TRILEPTAL -couple weeks back. now comes in for altered mental state, hyponatremia and uncontrolled hypertension. CT HEAD no acute chnages DC TRILEPTAL (known to cause hyponatremia/ ? rxn with zoloft) she has had GI issues with Keppra will start VIMPAT 50BID FU NA , BP better needs B12 -start oral B12 please call me any questions DR CARDONA [phone]
[2018-04-29] MEDS: ACETAMINOPHEN 1000 MG/100 ML VIAL (NON FORMULARY) IVPB PRN (19:45)
[2018-04-29] MEDS: LACOSAMIDE 50 MG TABLET PO SCH (21:26)
[2018-04-30] MEDS: SODIUM CHLORIDE 1,000 ML IV SCH (05:15)
[2018-04-30 06:13] LABS: BASO % 1.9 % (0-2.0); EOS % 2.9 % (0-4.5); HEMOGLOBIN 11.3 GM/dL (10.7-15.3); LYMPH % 19.6 % (8-40); MCH 30.3 pg (25.7-33.7); MCHC 36.4 g/dl (32.0-36.0); MEAN CELL VOLUME 83.3 fl (80-96); MEAN PLT VOLUME 7.1 fl (7.5-11.1); MONO % 9.4 % (3.8-10.2); NEUT % 66.2 % (42.8-82.8); PLATELET COUNT 184 K/MM3 (134-434); RBC 3.72 M/mm3 (3.60-5.2); RDW 12.5 % (11.6-15.6); WHITE BLOOD COUNT 3.9 K/mm3 (4.0-10.0)
[2018-04-30] MEDS: LEVOTHYROXINE NA 50 MCG TABLET (FP) PO SCH (06:18)
[2018-04-30 06:32] LABS: ALBUMIN 3.3 g/dl (3.4-5.0); ANION GAP 7 (8-16); BLOOD UREA NITROGEN 12 mg/dL (7-18); CALCIUM 8.2 mg/dL (8.5-10.1); CHLORIDE 93 mmol/L (98-107); CO2 27 mmol/L (21-32); CREATININE 0.4 mg/dL (0.55-1.02); GLUCOSE,RANDOM 103 mg/dL (74-106); POTASSIUM 3.6 mmol/L (3.5-5.1); SGOT/AST 21 U/L (15-37); SGPT/ALT 31 U/L (12-78); SODIUM 127 mmol/L (136-145)
[2018-04-30] MEDS: ACETAMINOPHEN 1000 MG/100 ML VIAL (NON FORMULARY) IVPB PRN (06:33)
[2018-04-30 06:34] LABS: ALK PHOS 126 U/L (45-117); BILIRUBIN,TOTAL 0.4 mg/dL (0.2-1.0); TOT PROT 5.6 g/dl (6.4-8.2)
--- NOTE | 2018-04-30 08:30 | PN ---
Progress Note (short form) - Note Progress Note: Chief Complaint: Events noted, notes reviewed, denies any chest pain or dyspnea , anxious about her hospitalization and wants to go home History of Present Illness: Seen and examined on telemetry. Events noted, notes reviewed, denies any chest pain or dyspnea, anxious about her hospitalization and wants to go home - Current Medication List Current Medications Acetaminophen (Ofirmev Injection -) 1,000 mg IVPB Q6H PRN PRN Reason: PAIN OR FEVER Last Admin: 04/30/18 06:33 Dose: 1,000 mg Acetaminophen (Tylenol -) 650 mg PO Q6H PRN PRN Reason: PAIN OR FEVER Last Admin: 04/29/18 14:04 Dose: 650 mg Amlodipine Besylate (Norvasc -) 10 mg PO DAILY [facility] Last Admin: 04/29/18 09:33 Dose: 10 mg Cyanocobalamin (Vitamin B12 -) 1,000 mcg PO DAILY [facility] Ezetimibe (Zetia -) 10 mg PO DAILY [facility] Last Admin: 04/29/18 09:33 Dose: 10 mg Heparin Sodium (Porcine) (Heparin -) 5,000 unit SQ BID [facility] Last Admin: 04/29/18 21:26 Dose: 5,000 unit Sodium Chloride (Normal Saline -) 1,000 mls @ 42 mls/hr IV ASDIR [facility] Last Admin: 04/30/18 05:15 Dose: 42 mls/hr Lacosamide (Vimpat -) 50 mg PO BID [facility] Stop: 05/09/18 22:01 Last Admin: 04/29/18 21:26 Dose: 50 mg Levothyroxine Sodium (Synthroid -) 50 mcg PO AM [facility] Last Admin: 04/30/18 06:18 Dose: 50 mcg Lisinopril (Prinivil) 20 mg PO DAILY [facility] Last Admin: 04/29/18 09:33 Dose: 20 mg Metoprolol Tartrate (Lopressor -) 25 mg PO BID [facility] Last Admin: 04/29/18 21:26 Dose: 25 mg Metoprolol Tartrate (Lopressor Injection -) 5 mg IVPUSH Q4H PRN PRN Reason: HYPERTENSION Last Admin: 04/28/18 18:28 Dose: 5 mg Ondansetron HCl (Zofran Injection) 4 mg IVPUSH Q6H PRN PRN Reason: NAUSEA Last Admin: 04/29/18 11:55 Dose: 4 mg Rosuvastatin Calcium (Crestor -) 10 mg PO DAILY [facility] Last Admin: 04/29/18 09:32 Dose: 10 mg Sertraline HCl (Zoloft -) 25 mg PO DAILY [facility] Last Admin: 04/29/18 09:34 Dose: 25 mg Review of Systems - Review of Systems Constitutional: denies: Chills, Fever Cardiovascular: As noted above Respiratory: denies: Cough or Sputum Production Gastrointestinal: denies: Nausea, Vomiting, Diarrhea, or Abdominal Pain but reports intermittent Constipation Genitourinary: denies: Dysuria or Hematuria Musculoskeletal: denies: Back Pain or Joint Pain Neurological: denies: Dizziness or Headaches - Objective Vital Signs: Last Vital Signs Temp Pulse Resp BP Pulse Ox 98.7 F 62 16 188/63 97 04/30/18 06:00 04/30/18 06:00 04/30/18 08:10 04/30/18 06:00 04/30/18 08:10 Intake & Output 04/27/18 04/28/18 04/29/18 04/30/18 23:59 23:59 23:59 23:59 Intake Total 352 2572 336 Output Total 950 1500 700 Balance -598 1072 -364 Weight 110 lb Constitutional: No Distress, Calm Neck: Supple Negative JVD No Bruit Cardiovascular: S1 S2 Regular Rate and Rhythm Respiratory: Diminished at the Bases Gastrointestinal: Soft Benign Normal Bowel Sounds Ext: No Edema Labs: CBC, BMP 04/30/18 05:30 04/30/18 05:30 Hepatic Panel Total Bilirubin 0.4 mg/dL (0.2-1.0) 04/30/18 05:30 AST 21 U/L (15-37) 04/30/18 05:30 ALT 31 U/L (12-78) 04/30/18 05:30 Alkaline Phosphatase 126 U/L (45-117) H D 04/30/18 05:30 Albumin 3.3 g/dl (3.4-5.0) L 04/30/18 05:30 INR, PTT INR 1.12 (0.82-1.09) 04/28/18 05:06 Assessment/Plan ASSESSMENT: 1. Altered mental status, etiology to be determined 2. Hyponatremia etiology to be determined 3. Labile hypertension/hypertensive cardiovascular disease, history of dysautonomia 4. History of atypical chest pain syndrome 5. Hyperlipidemia/hypercholesterolemia 6. History of ICH, hemorrhagic stroke with residual left sided deficits 7. Seizure disorder 8. Hypothyroidism 9. History of left hip hemiarthroplasty for left displaced femoral neck fracture 10. Neutropenia and anemia PLAN: 1. Continue Lopressor and titrate dosage 2. Continue Norvasc 3. Continue Lisinopril and titrate dosage 4. Continue Crestor and Zetia 5. Evaluation of hyponatremia as planned Rukhsana Zamora MD
--- NOTE | 2018-04-30 08:52 | PN ---
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 now comes in for altered mental state, hyponatremia and uncontrolled hypertension. CT HEAD No intracranial hemorrhage is seen. There has been no definite interval change in comparison to prior CT exams of 04/22/2018, 06/13/2017 and 05/21/2017. Status post right temporoparietal craniotomy. No acute infarct is identified within the limitations of CT. Chronic right frontal cortical/subcortical infarct laterally at the high convexity level. Chronic right temporal cortical infarct laterally. No obstructive hydrocephalus is seen. There is no extra-axial fluid collection. No gross mass lesion is identified noncontrast imaging. Impression: No definite interval change is seen as discussed above. FU : awake and alert this AM started VIMPAT yesterday--no issues thus far BP still remains high - Current Medication List Current Medications: Active Medications Acetaminophen (Ofirmev Injection -) 1,000 mg IVPB Q6H PRN PRN Reason: PAIN OR FEVER Last Admin: 04/28/18 14:01 Dose: 1,000 mg Acetaminophen (Tylenol -) 650 mg PO Q6H PRN PRN Reason: PAIN OR FEVER Last Admin: 04/29/18 14:04 Dose: 650 mg Amlodipine Besylate (Norvasc -) 10 mg PO DAILY [facility] Last Admin: 04/29/18 09:33 Dose: 10 mg Ezetimibe (Zetia -) 10 mg PO DAILY [facility] Last Admin: 04/29/18 09:33 Dose: 10 mg Heparin Sodium (Porcine) (Heparin -) 5,000 unit SQ BID [facility] Last Admin: 04/29/18 09:32 Dose: 5,000 unit Sodium Chloride (Normal Saline -) 1,000 mls @ 42 mls/hr IV ASDIR [facility] Last Admin: 04/29/18 06:21 Dose: 42 mls/hr Levetiracetam (Keppra Injection -) 1,000 mg IVPB BID [facility] Last Admin: 04/29/18 09:32 Dose: 1,000 mg Levothyroxine Sodium (Synthroid -) 50 mcg PO AM [facility] Last Admin: 04/29/18 06:20 Dose: 50 mcg Lisinopril (Prinivil) 20 mg PO DAILY [facility] Last Admin: 04/29/18 09:33 Dose: 20 mg Metoprolol Tartrate (Lopressor -) 25 mg PO BID [facility] Last Admin: 04/29/18 09:32 Dose: 25 mg Metoprolol Tartrate (Lopressor Injection -) 5 mg IVPUSH Q4H PRN PRN Reason: HYPERTENSION Last Admin: 04/28/18 18:28 Dose: 5 mg Ondansetron HCl (Zofran Injection) 4 mg IVPUSH Q6H PRN PRN Reason: NAUSEA Last Admin: 04/29/18 11:55 Dose: 4 mg Oxcarbazepine (Trileptal -) 600 mg PO BID [facility] Last Admin: 04/29/18 09:33 Dose: 600 mg Rosuvastatin Calcium (Crestor -) 10 mg PO DAILY [facility] Last Admin: 04/29/18 09:32 Dose: 10 mg Sertraline HCl (Zoloft -) 25 mg PO DAILY [facility] Last Admin: 04/29/18 09:34 Dose: 25 mg - Objective Vital Signs: Vital Signs Temperature 98.7 F 04/30/18 06:00 Pulse Rate 62 04/30/18 06:00 Respiratory Rate 16 04/30/18 08:10 Blood Pressure 188/63 04/30/18 06:00 O2 Sat by Pulse Oximetry (%) 97 04/30/18 08:10 Neurological: Yes: Alert (left hemipresis residual) Labs: CBCD WBC 3.9 K/mm3 (4.0-10.0) L 04/30/18 05:30 RBC 3.72 M/mm3 (3.60-5.2) 04/30/18 05:30 Hgb 11.3 GM/dL (10.7-15.3) 04/30/18 05:30 Hct 31.0 % (32.4-45.2) L 04/30/18 05:30 MCV 83.3 fl (80-96) 04/30/18 05:30 MCHC 36.4 g/dl (32.0-36.0) H 04/30/18 05:30 RDW 12.5 % (11.6-15.6) 04/30/18 05:30 Plt Count 184 K/MM3 (134-434) D 04/30/18 05:30 MPV 7.1 fl (7.5-11.1) L 04/30/18 05:30 CMP Sodium 127 mmol/L (136-145) L 04/30/18 05:30 Potassium 3.6 mmol/L (3.5-5.1) 04/30/18 05:30 Chloride 93 mmol/L (98-107) L 04/30/18 05:30 Carbon Dioxide 27 mmol/L (21-32) 04/30/18 05:30 Anion Gap 7 (8-16) L 04/30/18 05:30 BUN 12 mg/dL (7-18) 04/30/18 05:30 Creatinine 0.4 mg/dL (0.55-1.02) L 04/30/18 05:30 Creat Clearance w eGFR > 60 (>60) 04/30/18 05:30 Calcium 8.2 mg/dL (8.5-10.1) L 04/30/18 05:30 Total Bilirubin 0.4 mg/dL (0.2-1.0) 04/30/18 05:30 AST 21 U/L (15-37) 04/30/18 05:30 ALT 31 U/L (12-78) 04/30/18 05:30 Alkaline Phosphatase 126 U/L (45-117) H D 04/30/18 05:30 Total Protein 5.6 g/dl (6.4-8.2) L 04/30/18 05:30 Albumin 3.3 g/dl (3.4-5.0) L 04/30/18 05:30 Problem List - Problems (1) Drug side effects Code(s): T88.7XXA - UNSP ADVERSE EFFECT OF DRUG OR MEDICAMENT, INIT ENCNTR (2) Altered mental status Code(s): R41.82 - ALTERED MENTAL STATUS, UNSPECIFIED (3) Seizure Code(s): R56.9 - UNSPECIFIED CONVULSIONS (4) Cerebrovascular accident (CVA) Code(s): I63.9 - CEREBRAL INFARCTION, UNSPECIFIED Qualifiers: CVA mechanism: other Qualified Code(s): I63.8 - Other cerebral infarction Assessment/Plan pt known to me , hx of S/p hemorrhagic stroke with residual left hemiparesis; seen last by me in office on 04/11/18 was on Keppra for seizures but there was a question of GI upset and RX was changed to TRILEPTAL -couple weeks back. now comes in for altered mental state, hyponatremia and uncontrolled hypertension. CT HEAD no acute changes DC TRILEPTAL (known to cause hyponatremia/ ? rxn with zoloft) she has had GI issues with Keppra--DC'ed cont VIMPAT 50BID FU NA , BP FU cont B12 please call me any questions DR CARDONA [phone] Problem List - Problems (1) Drug side effects Code(s): T88.7XXA - UNSP ADVERSE EFFECT OF DRUG OR MEDICAMENT, INIT ENCNTR (2) Altered mental status Code(s): R41.82 - ALTERED MENTAL STATUS, UNSPECIFIED (3) Seizure Code(s): R56.9 - UNSPECIFIED CONVULSIONS (4) Cerebrovascular accident (CVA) Code(s): I63.9 - CEREBRAL INFARCTION, UNSPECIFIED Qualifiers: CVA mechanism: other Qualified Code(s): I63.8 - Other cerebral infarction
[2018-04-30] MEDS ORDERED: PT OWN MED DRAWER 7, Y5N ONE ×3 (08:53→16:19)
[2018-04-30] MEDS: amLODIPine BESYLATE 10 MG TABLET (FP) PO SCH (10:14)
[2018-04-30] MEDS: ROSUVASTATIN CA 10 MG TABLET (FP) PO SCH (10:14)
[2018-04-30] MEDS: LACOSAMIDE 50 MG TABLET PO SCH ×2 (10:14→21:56)
[2018-04-30] MEDS: CYANOCOBALAMIN 1,000 MCG TABLET (FP) PO SCH (10:14)
[2018-04-30] MEDS: SERTRALINE HCL 25 MG TABLET (FP) PO SCH (10:14)
[2018-04-30] MEDS: HEPARIN NA (PORCINE) 5,000 UNITS/ML 1ML VIAL SQ SCH ×2 (10:15→21:56)
[2018-04-30] MEDS: EZETIMIBE 10 MG TABLET (FP) PO SCH (10:16)
[2018-04-30] MEDS: LISINOPRIL 20 MG TABLET (FP) PO SCH (11:24)
[2018-04-30] MEDS: METOPROLOL TARTRATE 50 MG TABLET (FP) PO SCH ×2 (11:24→21:56)
[2018-04-30] MEDS ORDERED: POLYETHYLENE GLYCOL 3350 119 GM BTL PO ONE (11:41)
--- NOTE | 2018-04-30 11:42 | PN ---
Progress Note, Physician Chief Complaint: patient seen and examined in telemtry bed in ICU she is turned on her left side' left sided weakness patient very anxious in morning and has been straining on bed side commode just passing gas elevated BP noted patient got norvasc,prinivil and metoprolol - Current Medication List Current Medications: Active Medications Acetaminophen (Ofirmev Injection -) 1,000 mg IVPB Q6H PRN PRN Reason: PAIN OR FEVER Last Admin: 04/30/18 06:33 Dose: 1,000 mg Acetaminophen (Tylenol -) 650 mg PO Q6H PRN PRN Reason: PAIN OR FEVER Last Admin: 04/29/18 14:04 Dose: 650 mg Amlodipine Besylate (Norvasc -) 10 mg PO DAILY [facility] Last Admin: 04/30/18 10:14 Dose: 10 mg Cyanocobalamin (Vitamin B12 -) 1,000 mcg PO DAILY [facility] Last Admin: 04/30/18 10:14 Dose: 1,000 mcg Docusate Sodium (Colace -) 100 mg PO TID [facility] Ezetimibe (Zetia -) 10 mg PO DAILY [facility] Last Admin: 04/30/18 10:16 Dose: 10 mg Heparin Sodium (Porcine) (Heparin -) 5,000 unit SQ BID [facility] Last Admin: 04/30/18 10:15 Dose: 5,000 unit Sodium Chloride (Normal Saline -) 1,000 mls @ 42 mls/hr IV ASDIR [facility] Last Admin: 04/30/18 05:15 Dose: 42 mls/hr Lacosamide (Vimpat -) 50 mg PO BID [facility] Stop: 05/09/18 22:01 Last Admin: 04/30/18 10:14 Dose: 50 mg Levothyroxine Sodium (Synthroid -) 50 mcg PO AM [facility] Last Admin: 04/30/18 06:18 Dose: 50 mcg Lisinopril (Prinivil) 40 mg PO DAILY [facility] Last Admin: 04/30/18 11:24 Dose: 40 mg Metoprolol Tartrate (Lopressor Injection -) 5 mg IVPUSH Q4H PRN PRN Reason: HYPERTENSION Last Admin: 04/30/18 11:14 Dose: 5 mg Metoprolol Tartrate (Lopressor -) 50 mg PO BID [facility] Last Admin: 04/30/18 11:24 Dose: 50 mg Ondansetron HCl (Zofran Injection) 4 mg IVPUSH Q6H PRN PRN Reason: NAUSEA Last Admin: 04/29/18 11:55 Dose: 4 mg Polyethylene Glycol (Miralax (For Daily Use) -) 17 gm PO ONCE ONE Stop: 04/30/18 11:42 Rosuvastatin Calcium (Crestor -) 10 mg PO DAILY [facility] Last Admin: 04/30/18 10:14 Dose: 10 mg Sertraline HCl (Zoloft -) 25 mg PO DAILY [facility] Last Admin: 04/30/18 10:14 Dose: 25 mg - Objective Vital Signs: Vital Signs Temperature 98.7 F 04/30/18 06:00 Pulse Rate 65 04/30/18 11:14 Respiratory Rate 16 04/30/18 08:10 Blood Pressure 185/64 04/30/18 11:14 O2 Sat by Pulse Oximetry (%) 97 04/30/18 08:10 Constitutional: Yes: Calm Cardiovascular: Yes: Regular Rate and Rhythm, S1, S2 Respiratory: Yes: CTA Bilaterally Gastrointestinal: Yes: Normal Bowel Sounds, Soft Edema: No Neurological: Yes: Alert, Oriented, Pre-Existing Deficit (left sided weakness) Labs: CBC, BMP 04/30/18 05:30 04/30/18 05:30 INR, PTT INR 1.12 (0.82-1.09) 04/28/18 05:06 Problem List - Problems (1) Altered mental status Assessment/Plan: ct head negative na is now 127 ivf slowly correcting sodium [facility] Vim[facility] started PT eval Code(s): R41.82 - ALTERED MENTAL STATUS, UNSPECIFIED (2) Seizure Assessment/Plan: stop trileptal and keppra on vimpat Code(s): R56.9 - UNSPECIFIED CONVULSIONS (3) HTN (hypertension) Assessment/Plan: norvasc and lopressor dose increased lisinopril will monitor patient is also very anxious and has been straining stool softners given Code(s): I10 - ESSENTIAL (PRIMARY) HYPERTENSION (4) Hyponatremia Assessment/Plan: ivf fluids renal on board nA 127 Code(s): E87.1 - HYPO-OSMOLALITY AND HYPONATREMIA (5) Hypothyroid Assessment/Plan: synthroid tsh noted Code(s): E03.9 - HYPOTHYROIDISM, UNSPECIFIED Qualifiers: Qualified Code(s): E03.9 - Hypothyroidism, unspecified
[2018-04-30] MEDS: METOPROLOL TARTRATE 5 MG/5 ML VIAL IVPUSH PRN (13:22)
--- NOTE | 2018-04-30 15:17 | PN ---
Progress Note, Physician History of Present Illness: Pt seen and examined at bedside. She is more awake and interactive today. She is still anxious. - Current Medication List Current Medications: Active Medications Acetaminophen (Ofirmev Injection -) 1,000 mg IVPB Q6H PRN PRN Reason: PAIN OR FEVER Last Admin: 04/30/18 06:33 Dose: 1,000 mg Acetaminophen (Tylenol -) 650 mg PO Q6H PRN PRN Reason: PAIN OR FEVER Last Admin: 04/29/18 14:04 Dose: 650 mg Amlodipine Besylate (Norvasc -) 10 mg PO DAILY [facility] Last Admin: 04/30/18 10:14 Dose: 10 mg Cyanocobalamin (Vitamin B12 -) 1,000 mcg PO DAILY [facility] Last Admin: 04/30/18 10:14 Dose: 1,000 mcg Docusate Sodium (Colace -) 100 mg PO TID [facility] Ezetimibe (Zetia -) 10 mg PO DAILY [facility] Last Admin: 04/30/18 10:16 Dose: 10 mg Heparin Sodium (Porcine) (Heparin -) 5,000 unit SQ BID [facility] Last Admin: 04/30/18 10:15 Dose: 5,000 unit Lacosamide (Vimpat -) 50 mg PO BID [facility] Stop: 05/09/18 22:01 Last Admin: 04/30/18 10:14 Dose: 50 mg Levothyroxine Sodium (Synthroid -) 50 mcg PO AM [facility] Last Admin: 04/30/18 06:18 Dose: 50 mcg Lisinopril (Prinivil) 40 mg PO DAILY [facility] Last Admin: 04/30/18 11:24 Dose: 40 mg Metoprolol Tartrate (Lopressor Injection -) 5 mg IVPUSH Q4H PRN PRN Reason: HYPERTENSION Last Admin: 04/30/18 13:22 Dose: 5 mg Metoprolol Tartrate (Lopressor -) 50 mg PO BID [facility] Last Admin: 04/30/18 11:24 Dose: 50 mg Ondansetron HCl (Zofran Injection) 4 mg IVPUSH Q6H PRN PRN Reason: NAUSEA Last Admin: 04/29/18 11:55 Dose: 4 mg Rosuvastatin Calcium (Crestor -) 10 mg PO DAILY [facility] Last Admin: 04/30/18 10:14 Dose: 10 mg Sodium Chloride (Sodium Chloride Tablet -) 1 gm PO BID [facility] - Objective Vital Signs: Vital Signs Temperature 98.4 F 04/30/18 14:00 Pulse Rate 57 L 04/30/18 14:00 Respiratory Rate 19 04/30/18 14:00 Blood Pressure 179/71 04/30/18 14:00 O2 Sat by Pulse Oximetry (%) 97 04/30/18 08:10 Constitutional: Yes: Anxious Eyes: Yes: Conjunctiva Clear HENT: Yes: Atraumatic Neck: Yes: Supple Cardiovascular: Yes: S1, S2 Respiratory: Yes: CTA Bilaterally Gastrointestinal: Yes: Soft Genitourinary: Yes: Tiwari Present Musculoskeletal: Yes: WNL Edema: No Neurological: Yes: Oriented Psychiatric: Yes: Oriented Labs: CBC, BMP 04/30/18 05:30 04/30/18 05:30 INR, PTT INR 1.12 (0.82-1.09) 04/28/18 05:06 Problem List - Problems (1) Altered mental status Code(s): R41.82 - ALTERED MENTAL STATUS, UNSPECIFIED Qualifiers: Altered mental status type: unspecified Qualified Code(s): R41.82 - Altered mental status, unspecified (2) HTN (hypertension) Code(s): I10 - ESSENTIAL (PRIMARY) HYPERTENSION Qualifiers: Hypertension type: essential hypertension Qualified Code(s): I10 - Essential (primary) hypertension (3) Seizure Code(s): R56.9 - UNSPECIFIED CONVULSIONS Assessment/Plan Current Medications Generic Name Dose Route Start Last Admin Trade Name Freq PRN Reason Stop Dose Admin Acetaminophen 1,000 mg 04/28/18 13:51 04/30/18 06:33 Ofirmev Injection - IVPB 1,000 mg Q6H PRN Administration PAIN OR FEVER Acetaminophen 650 mg 04/29/18 14:01 04/29/18 14:04 Tylenol - PO 650 mg Q6H PRN Administration PAIN OR FEVER Amlodipine Besylate 10 mg 04/28/18 10:20 04/30/18 10:14 Norvasc - PO 10 mg DAILY [facility] Administration Cyanocobalamin 1,000 mcg 04/30/18 10:00 04/30/18 10:14 Vitamin B12 - PO 1,000 mcg DAILY [facility] Administration Docusate Sodium 100 mg 04/30/18 14:00 Colace - PO TID [facility] Ezetimibe 10 mg 04/28/18 10:00 04/30/18 10:16 Zetia - PO 10 mg DAILY [facility] Administration Heparin Sodium (Porcine) 5,000 unit 04/28/18 10:00 04/30/18 10:15 Heparin - SQ 5,000 unit BID [facility] Administration Lacosamide 50 mg 04/29/18 22:00 04/30/18 10:14 Vimpat - PO 05/09/18 22:01 50 mg BID [facility] Administration Levothyroxine Sodium 50 mcg 04/28/18 10:00 04/30/18 06:18 Synthroid - PO 50 mcg AM [facility] Administration Lisinopril 40 mg 04/30/18 11:15 04/30/18 11:24 Prinivil PO 40 mg DAILY [facility] Administration Metoprolol Tartrate 5 mg 04/28/18 13:30 04/30/18 13:22 Lopressor Injection - IVPUSH 5 mg Q4H PRN Administration HYPERTENSION Metoprolol Tartrate 50 mg 04/30/18 11:15 04/30/18 11:24 Lopressor - PO 50 mg BID [facility] Administration Ondansetron HCl 4 mg 04/29/18 11:48 04/29/18 11:55 Zofran Injection IVPUSH 4 mg Q6H PRN Administration NAUSEA Rosuvastatin Calcium 10 mg 04/28/18 10:00 04/30/18 10:14 Crestor - PO 10 mg DAILY [facility] Administration Sodium Chloride 1 gm 04/30/18 14:30 Sodium Chloride Tablet - PO BID [facility] Laboratory Tests 04/29/18 04/29/18 04/29/18 05:30 12:45 12:45 Serum Osmolality 261 L Free T4 0.77 Cortisol AM Sample 8.7 Urine Osmolality Ur Random Sodium 04/29/18 04/29/18 13:10 13:10 Serum Osmolality Free T4 Cortisol AM Sample Urine Osmolality 446 Ur Random Sodium 135 Impression 1. hyponatremia 2. epilepsy 3. HTN 4. altered mental status 5. hypothyroidism 6. HLD Plan - spoke to pts family, she was not taking sertraline at home, will stop - stop IV fluids - start salt tabs - urine studies reviewed, consistent with siadh type picture - age appropriate screening - restrict free water - repeat labs in am - na was 125 on 04/22 - will follow pt - discussed with nurse Dr Cho
[2018-04-30] MEDS: DOCUSATE SODIUM 100 MG CAPSULE (FP) PO SCH ×2 (16:34→21:56)
[2018-04-30] MEDS: SODIUM CHLORIDE 1 GM TABLET PO SCH ×2 (18:21→23:19)
[2018-04-30] MEDS ORDERED: KETOROLAC TROMETHAMINE 10 MG TABLET PO ONE (18:36)
[2018-04-30] MEDS: ACETAMINOPHEN 325 MG TABLET (FP) PO PRN (21:56)
[2018-05-01] MEDS: ONDANSETRON 4 MG/2 ML VIAL IVPUSH PRN (02:44)
[2018-05-01] MEDS: LEVOTHYROXINE NA 50 MCG TABLET (FP) PO SCH (06:34)
[2018-05-01] MEDS: DOCUSATE SODIUM 100 MG CAPSULE (FP) PO SCH ×3 (06:34→22:18)
[2018-05-01 07:16] LABS: ALBUMIN 3.7 g/dl (3.4-5.0); ANION GAP 10 (8-16); BILIRUBIN,TOTAL 0.4 mg/dL (0.2-1.0); BLOOD UREA NITROGEN 11 mg/dL (7-18); CALCIUM 8.8 mg/dL (8.5-10.1); CHLORIDE 95 mmol/L (98-107); CO2 27 mmol/L (21-32); CREATININE 0.5 mg/dL (0.55-1.02); GLUCOSE,RANDOM 113 mg/dL (74-106); POTASSIUM 3.9 mmol/L (3.5-5.1); SGOT/AST 24 U/L (15-37); SGPT/ALT 37 U/L (12-78); SODIUM 132 mmol/L (136-145); TOT PROT 6.2 g/dl (6.4-8.2)
[2018-05-01 07:17] LABS: ALK PHOS 148 U/L (45-117)
--- NOTE | 2018-05-01 08:49 | PN ---
Progress Note, Physician Chief Complaint: AWAKE ANXIOUS C/O LEFT LEG PAIN - Current Medication List Current Medications: Active Medications Acetaminophen (Ofirmev Injection -) 1,000 mg IVPB Q6H PRN PRN Reason: PAIN OR FEVER Last Admin: 04/30/18 06:33 Dose: 1,000 mg Acetaminophen (Tylenol -) 650 mg PO Q6H PRN PRN Reason: PAIN OR FEVER Last Admin: 04/30/18 21:56 Dose: 650 mg Amlodipine Besylate (Norvasc -) 10 mg PO DAILY [facility] Last Admin: 04/30/18 10:14 Dose: 10 mg Cyanocobalamin (Vitamin B12 -) 1,000 mcg PO DAILY [facility] Last Admin: 04/30/18 10:14 Dose: 1,000 mcg Docusate Sodium (Colace -) 100 mg PO TID [facility] Last Admin: 05/01/18 06:34 Dose: 100 mg Ezetimibe (Zetia -) 10 mg PO DAILY [facility] Last Admin: 04/30/18 10:16 Dose: 10 mg Heparin Sodium (Porcine) (Heparin -) 5,000 unit SQ BID [facility] Last Admin: 04/30/18 21:56 Dose: 5,000 unit Lacosamide (Vimpat -) 50 mg PO BID [facility] Stop: 05/09/18 22:01 Last Admin: 04/30/18 21:56 Dose: 50 mg Levothyroxine Sodium (Synthroid -) 50 mcg PO AM [facility] Last Admin: 05/01/18 06:34 Dose: 50 mcg Lisinopril (Prinivil) 40 mg PO DAILY [facility] Last Admin: 04/30/18 11:24 Dose: 40 mg Metoprolol Tartrate (Lopressor Injection -) 5 mg IVPUSH Q4H PRN PRN Reason: HYPERTENSION Last Admin: 04/30/18 13:22 Dose: 5 mg Metoprolol Tartrate (Lopressor -) 50 mg PO BID [facility] Last Admin: 04/30/18 21:56 Dose: 50 mg Ondansetron HCl (Zofran Injection) 4 mg IVPUSH Q6H PRN PRN Reason: NAUSEA Last Admin: 05/01/18 02:44 Dose: 4 mg Rosuvastatin Calcium (Crestor -) 10 mg PO DAILY [facility] Last Admin: 04/30/18 10:14 Dose: 10 mg Sodium Chloride (Sodium Chloride Tablet -) 1 gm PO BID [facility] Last Admin: 04/30/18 23:19 Dose: 1 gm - Objective Vital Signs: Vital Signs Temperature 98.3 F 05/01/18 05:00 Pulse Rate 60 05/01/18 05:00 Respiratory Rate 20 05/01/18 05:00 Blood Pressure 147/68 05/01/18 05:00 O2 Sat by Pulse Oximetry (%) 97 04/30/18 22:00 Constitutional: Yes: Mild Distress Eyes: Yes: WNL HENT: Yes: WNL Neck: Yes: WNL Cardiovascular: Yes: Pulse Irregular Respiratory: Yes: WNL Gastrointestinal: Yes: WNL Genitourinary: Yes: WNL Musculoskeletal: Yes: Muscle Weakness Extremities: Yes: Other Edema: Yes Peripheral Pulses WNL: Yes Integumentary: Yes: WNL Wound/Incision: Yes: Clean/Dry Neurological: Yes: Unsteady Gait ...Motor Strength: LLE Psychiatric: Yes: Other (ANXIOUS) Labs: CBC, BMP 04/30/18 05:30 05/01/18 05:30 INR, PTT INR 1.12 (0.82-1.09) 04/28/18 05:06 Problem List - Problems (1) Altered mental status Code(s): R41.82 - ALTERED MENTAL STATUS, UNSPECIFIED Qualifiers: Altered mental status type: unspecified Qualified Code(s): R41.82 - Altered mental status, unspecified (2) HTN (hypertension) Code(s): I10 - ESSENTIAL (PRIMARY) HYPERTENSION Qualifiers: Hypertension type: essential hypertension Qualified Code(s): I10 - Essential (primary) hypertension (3) Agitation Code(s): R45.1 - RESTLESSNESS AND AGITATION (4) Depression Code(s): F32.9 - MAJOR DEPRESSIVE DISORDER, SINGLE EPISODE, UNSPECIFIED Assessment/Plan PSYCHIATRY EVAL LEFT LEG XRAY OF ANKLE PT EVAL REFUSED SNF HOME WITH VNS/PT OOB TO CHAIR WITH ASSIST DC PLANNING
--- NOTE | 2018-05-01 09:43 | PN ---
Progress Note, Physician History of Present Illness: Sensorium and hyponatremia improving. - Current Medication List Current Medications: Active Medications Acetaminophen (Ofirmev Injection -) 1,000 mg IVPB Q6H PRN PRN Reason: PAIN OR FEVER Last Admin: 04/30/18 06:33 Dose: 1,000 mg Acetaminophen (Tylenol -) 650 mg PO Q6H PRN PRN Reason: PAIN OR FEVER Last Admin: 04/30/18 21:56 Dose: 650 mg Amlodipine Besylate (Norvasc -) 10 mg PO DAILY [facility] Last Admin: 04/30/18 10:14 Dose: 10 mg Cyanocobalamin (Vitamin B12 -) 1,000 mcg PO DAILY [facility] Last Admin: 04/30/18 10:14 Dose: 1,000 mcg Docusate Sodium (Colace -) 100 mg PO TID [facility] Last Admin: 05/01/18 06:34 Dose: 100 mg Ezetimibe (Zetia -) 10 mg PO DAILY [facility] Last Admin: 04/30/18 10:16 Dose: 10 mg Heparin Sodium (Porcine) (Heparin -) 5,000 unit SQ BID [facility] Last Admin: 04/30/18 21:56 Dose: 5,000 unit Lacosamide (Vimpat -) 50 mg PO BID [facility] Stop: 05/09/18 22:01 Last Admin: 04/30/18 21:56 Dose: 50 mg Levothyroxine Sodium (Synthroid -) 50 mcg PO AM [facility] Last Admin: 05/01/18 06:34 Dose: 50 mcg Lisinopril (Prinivil) 40 mg PO DAILY [facility] Last Admin: 04/30/18 11:24 Dose: 40 mg Metoprolol Tartrate (Lopressor Injection -) 5 mg IVPUSH Q4H PRN PRN Reason: HYPERTENSION Last Admin: 04/30/18 13:22 Dose: 5 mg Metoprolol Tartrate (Lopressor -) 50 mg PO BID [facility] Last Admin: 04/30/18 21:56 Dose: 50 mg Ondansetron HCl (Zofran Injection) 4 mg IVPUSH Q6H PRN PRN Reason: NAUSEA Last Admin: 05/01/18 02:44 Dose: 4 mg Rosuvastatin Calcium (Crestor -) 10 mg PO DAILY [facility] Last Admin: 04/30/18 10:14 Dose: 10 mg Sodium Chloride (Sodium Chloride Tablet -) 1 gm PO BID [facility] Last Admin: 04/30/18 23:19 Dose: 1 gm - Objective Vital Signs: Vital Signs Temperature 98.3 F 05/01/18 05:00 Pulse Rate 60 05/01/18 05:00 Respiratory Rate 20 05/01/18 05:00 Blood Pressure 147/68 05/01/18 05:00 O2 Sat by Pulse Oximetry (%) 97 04/30/18 22:00 Constitutional: Yes: No Distress, Calm, Thin Neck: Yes: Supple Cardiovascular: Yes: Regular Rate and Rhythm Respiratory: Yes: Regular, Diminished, On Nasal O2 Gastrointestinal: Yes: Normal Bowel Sounds, Soft Edema: No Labs: CBC, BMP 04/30/18 05:30 05/01/18 05:30 INR, PTT INR 1.12 (0.82-1.09) 04/28/18 05:06 Problem List - Problems (1) Altered mental status Code(s): R41.82 - ALTERED MENTAL STATUS, UNSPECIFIED Qualifiers: Altered mental status type: unspecified Qualified Code(s): R41.82 - Altered mental status, unspecified (2) HTN (hypertension) Code(s): I10 - ESSENTIAL (PRIMARY) HYPERTENSION Qualifiers: Hypertension type: essential hypertension Qualified Code(s): I10 - Essential (primary) hypertension (3) Cerebrovascular accident (CVA) Code(s): I63.9 - CEREBRAL INFARCTION, UNSPECIFIED Qualifiers: CVA mechanism: other Qualified Code(s): I63.8 - Other cerebral infarction (4) HLD (hyperlipidemia) Code(s): E78.5 - HYPERLIPIDEMIA, UNSPECIFIED Qualifiers: Hyperlipidemia type: pure hypercholesterolemia Qualified Code(s): E78.00 - Pure hypercholesterolemia, unspecified (5) Hyponatremia Code(s): E87.1 - HYPO-OSMOLALITY AND HYPONATREMIA (6) Hypothyroid Code(s): E03.9 - HYPOTHYROIDISM, UNSPECIFIED Qualifiers: Hypothyroidism type: unspecified Qualified Code(s): E03.9 - Hypothyroidism , unspecified (7) Labile hypertension Code(s): I10 - ESSENTIAL (PRIMARY) HYPERTENSION (8) Seizure disorder Code(s): G40.909 - EPILEPSY, UNSP, NOT INTRACTABLE, WITHOUT STATUS EPILEPTICUS Assessment/Plan 1. Altered mental status, etiology to be determined 2. Hyponatremia improving on NaCl 3. Labile hypertension/hypertensive cardiovascular disease, history of dysautonomia 4. History of atypical chest pain syndrome 5. Hyperlipidemia/hypercholesterolemia 6. History of ICH, hemorrhagic stroke with residual left hemiparesis 7. Seizure disorder 8. Hypothyroidism 9. History of left hip hemiarthroplasty for left displaced femoral neck fracture 10. Neutropenia and anemia PLAN: 1. Continue Lopressor 50 bid and titrate dosage 2. Continue Norvasc 10 qd 3. Continue Lisinopril 40 qd and titrate dosage 4. Continue Crestor 10 qd and Zetia 10 qd, resume PCSK9 as outpatient 5. Antiseizure meds per neuro 6. DVT prophylaxis
[2018-05-01] MEDS: CYANOCOBALAMIN 1,000 MCG TABLET (FP) PO SCH (09:49)
[2018-05-01] MEDS: HEPARIN NA (PORCINE) 5,000 UNITS/ML 1ML VIAL SQ SCH ×2 (09:50→22:17)
[2018-05-01] MEDS: METOPROLOL TARTRATE 50 MG TABLET (FP) PO SCH ×2 (09:50→22:17)
[2018-05-01] MEDS: ROSUVASTATIN CA 10 MG TABLET (FP) PO SCH (09:50)
[2018-05-01] MEDS: EZETIMIBE 10 MG TABLET (FP) PO SCH (09:50)
[2018-05-01] MEDS: amLODIPine BESYLATE 10 MG TABLET (FP) PO SCH (09:50)
[2018-05-01] MEDS: LACOSAMIDE 50 MG TABLET PO SCH ×2 (09:50→22:17)
[2018-05-01] MEDS: SODIUM CHLORIDE 1 GM TABLET PO SCH ×2 (09:50→22:18)
[2018-05-01] MEDS: LISINOPRIL 20 MG TABLET (FP) PO SCH (09:50)
--- NOTE | 2018-05-01 10:05 | PN ---
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 now comes in for altered mental state, hyponatremia and uncontrolled hypertension. CT HEAD No intracranial hemorrhage is seen. There has been no definite interval change in comparison to prior CT exams of 04/22/2018, 06/13/2017 and 05/21/2017. Status post right temporoparietal craniotomy. No acute infarct is identified within the limitations of CT. Chronic right frontal cortical/subcortical infarct laterally at the high convexity level. Chronic right temporal cortical infarct laterally. No obstructive hydrocephalus is seen. There is no extra-axial fluid collection. No gross mass lesion is identified noncontrast imaging. Impression: No definite interval change is seen as discussed above. FU : awake and alert this AM started VIMPAT -no issues thus far BP and NA improving - Current Medication List Current Medications: Active Medications Acetaminophen (Ofirmev Injection -) 1,000 mg IVPB Q6H PRN PRN Reason: PAIN OR FEVER Last Admin: 04/28/18 14:01 Dose: 1,000 mg Acetaminophen (Tylenol -) 650 mg PO Q6H PRN PRN Reason: PAIN OR FEVER Last Admin: 04/29/18 14:04 Dose: 650 mg Amlodipine Besylate (Norvasc -) 10 mg PO DAILY [facility] Last Admin: 04/29/18 09:33 Dose: 10 mg Ezetimibe (Zetia -) 10 mg PO DAILY [facility] Last Admin: 04/29/18 09:33 Dose: 10 mg Heparin Sodium (Porcine) (Heparin -) 5,000 unit SQ BID [facility] Last Admin: 04/29/18 09:32 Dose: 5,000 unit Sodium Chloride (Normal Saline -) 1,000 mls @ 42 mls/hr IV ASDIR [facility] Last Admin: 04/29/18 06:21 Dose: 42 mls/hr Levetiracetam (Keppra Injection -) 1,000 mg IVPB BID [facility] Last Admin: 04/29/18 09:32 Dose: 1,000 mg Levothyroxine Sodium (Synthroid -) 50 mcg PO AM [facility] Last Admin: 04/29/18 06:20 Dose: 50 mcg Lisinopril (Prinivil) 20 mg PO DAILY [facility] Last Admin: 04/29/18 09:33 Dose: 20 mg Metoprolol Tartrate (Lopressor -) 25 mg PO BID [facility] Last Admin: 04/29/18 09:32 Dose: 25 mg Metoprolol Tartrate (Lopressor Injection -) 5 mg IVPUSH Q4H PRN PRN Reason: HYPERTENSION Last Admin: 04/28/18 18:28 Dose: 5 mg Ondansetron HCl (Zofran Injection) 4 mg IVPUSH Q6H PRN PRN Reason: NAUSEA Last Admin: 04/29/18 11:55 Dose: 4 mg Oxcarbazepine (Trileptal -) 600 mg PO BID [facility] Last Admin: 04/29/18 09:33 Dose: 600 mg Rosuvastatin Calcium (Crestor -) 10 mg PO DAILY [facility] Last Admin: 04/29/18 09:32 Dose: 10 mg Sertraline HCl (Zoloft -) 25 mg PO DAILY [facility] Last Admin: 04/29/18 09:34 Dose: 25 mg - Objective Vital Signs: Vital Signs Temperature 98.2 F 05/01/18 09:00 Pulse Rate 62 05/01/18 09:00 Respiratory Rate 14 05/01/18 09:00 Blood Pressure 154/68 05/01/18 09:00 O2 Sat by Pulse Oximetry (%) 97 04/30/18 22:00 Neurological: Yes: Alert (left hemipresis residual) Labs: CBCD WBC 3.9 K/mm3 (4.0-10.0) L 04/30/18 05:30 RBC 3.72 M/mm3 (3.60-5.2) 04/30/18 05:30 Hgb 11.3 GM/dL (10.7-15.3) 04/30/18 05:30 Hct 31.0 % (32.4-45.2) L 04/30/18 05:30 MCV 83.3 fl (80-96) 04/30/18 05:30 MCHC 36.4 g/dl (32.0-36.0) H 04/30/18 05:30 RDW 12.5 % (11.6-15.6) 04/30/18 05:30 Plt Count 184 K/MM3 (134-434) D 04/30/18 05:30 MPV 7.1 fl (7.5-11.1) L 04/30/18 05:30 CBCD WBC 3.9 K/mm3 (4.0-10.0) L 04/30/18 05:30 RBC 3.72 M/mm3 (3.60-5.2) 04/30/18 05:30 Hgb 11.3 GM/dL (10.7-15.3) 04/30/18 05:30 Hct 31.0 % (32.4-45.2) L 04/30/18 05:30 MCV 83.3 fl (80-96) 04/30/18 05:30 MCHC 36.4 g/dl (32.0-36.0) H 04/30/18 05:30 RDW 12.5 % (11.6-15.6) 04/30/18 05:30 Plt Count 184 K/MM3 (134-434) D 04/30/18 05:30 MPV 7.1 fl (7.5-11.1) L 04/30/18 05:30 CMP Sodium 132 mmol/L (136-145) L 05/01/18 05:30 Potassium 3.9 mmol/L (3.5-5.1) 05/01/18 05:30 Chloride 95 mmol/L (98-107) L 05/01/18 05:30 Carbon Dioxide 27 mmol/L (21-32) 05/01/18 05:30 Anion Gap 10 (8-16) 05/01/18 05:30 BUN 11 mg/dL (7-18) 05/01/18 05:30 Creatinine 0.5 mg/dL (0.55-1.02) L 05/01/18 05:30 Creat Clearance w eGFR > 60 (>60) 05/01/18 05:30 Calcium 8.8 mg/dL (8.5-10.1) 05/01/18 05:30 Total Bilirubin 0.4 mg/dL (0.2-1.0) 05/01/18 05:30 AST 24 U/L (15-37) 05/01/18 05:30 ALT 37 U/L (12-78) 05/01/18 05:30 Alkaline Phosphatase 148 U/L (45-117) H D 05/01/18 05:30 Total Protein 6.2 g/dl (6.4-8.2) L 05/01/18 05:30 Albumin 3.7 g/dl (3.4-5.0) 05/01/18 05:30 Problem List - Problems (1) Drug side effects Code(s): T88.7XXA - UNSP ADVERSE EFFECT OF DRUG OR MEDICAMENT, INIT ENCNTR (2) Altered mental status Code(s): R41.82 - ALTERED MENTAL STATUS, UNSPECIFIED (3) Seizure Code(s): R56.9 - UNSPECIFIED CONVULSIONS (4) Cerebrovascular accident (CVA) Code(s): I63.9 - CEREBRAL INFARCTION, UNSPECIFIED Qualifiers: CVA mechanism: other Qualified Code(s): I63.8 - Other cerebral infarction Assessment/Plan pt known to me , hx of S/p hemorrhagic stroke with residual left hemiparesis; seen last by me in office on 04/11/18 was on Keppra for seizures but there was a question of GI upset and RX was changed to TRILEPTAL -couple weeks back. now comes in for altered mental state, hyponatremia and uncontrolled hypertension. CT HEAD no acute changes DC TRILEPTAL (known to cause hyponatremia/ ? rxn with zoloft) she has had GI issues with Keppra--DC'ed cont VIMPAT 50BID FU NA , BP FU cont B12 neurowise stable and can FU outpt DR CARDONA [phone] Problem List - Problems (1) Drug side effects Code(s): T88.7XXA - UNSP ADVERSE EFFECT OF DRUG OR MEDICAMENT, INIT ENCNTR (2) Altered mental status Code(s): R41.82 - ALTERED MENTAL STATUS, UNSPECIFIED Qualifiers: Altered mental status type: unspecified Qualified Code(s): R41.82 - Altered mental status, unspecified (3) Seizure Code(s): R56.9 - UNSPECIFIED CONVULSIONS (4) Cerebrovascular accident (CVA) Code(s): I63.9 - CEREBRAL INFARCTION, UNSPECIFIED Qualifiers: CVA mechanism: other Qualified Code(s): I63.8 - Other cerebral infarction
--- NOTE | 2018-05-01 12:15 | PN ---
Progress Note, Physician History of Present Illness: Pt seen and examined at bedside. She is more awake and alert. - Current Medication List Current Medications: Active Medications Acetaminophen (Ofirmev Injection -) 1,000 mg IVPB Q6H PRN PRN Reason: PAIN OR FEVER Last Admin: 04/30/18 06:33 Dose: 1,000 mg Acetaminophen (Tylenol -) 650 mg PO Q6H PRN PRN Reason: PAIN OR FEVER Last Admin: 04/30/18 21:56 Dose: 650 mg Amlodipine Besylate (Norvasc -) 10 mg PO DAILY [facility] Last Admin: 05/01/18 09:50 Dose: 10 mg Cyanocobalamin (Vitamin B12 -) 1,000 mcg PO DAILY [facility] Last Admin: 05/01/18 09:49 Dose: 1,000 mcg Docusate Sodium (Colace -) 100 mg PO TID [facility] Last Admin: 05/01/18 06:34 Dose: 100 mg Ezetimibe (Zetia -) 10 mg PO DAILY [facility] Last Admin: 05/01/18 09:50 Dose: 10 mg Heparin Sodium (Porcine) (Heparin -) 5,000 unit SQ BID [facility] Last Admin: 05/01/18 09:50 Dose: 5,000 unit Lacosamide (Vimpat -) 50 mg PO BID [facility] Stop: 05/09/18 22:01 Last Admin: 05/01/18 09:50 Dose: 50 mg Levothyroxine Sodium (Synthroid -) 50 mcg PO AM [facility] Last Admin: 05/01/18 06:34 Dose: 50 mcg Lisinopril (Prinivil) 40 mg PO DAILY [facility] Last Admin: 05/01/18 09:50 Dose: 40 mg Metoprolol Tartrate (Lopressor Injection -) 5 mg IVPUSH Q4H PRN PRN Reason: HYPERTENSION Last Admin: 04/30/18 13:22 Dose: 5 mg Metoprolol Tartrate (Lopressor -) 50 mg PO BID [facility] Last Admin: 05/01/18 09:50 Dose: 50 mg Ondansetron HCl (Zofran Injection) 4 mg IVPUSH Q6H PRN PRN Reason: NAUSEA Last Admin: 05/01/18 02:44 Dose: 4 mg Rosuvastatin Calcium (Crestor -) 10 mg PO DAILY [facility] Last Admin: 05/01/18 09:50 Dose: 10 mg Sodium Chloride (Sodium Chloride Tablet -) 1 gm PO BID [facility] Last Admin: 05/01/18 09:50 Dose: 1 gm - Objective Vital Signs: Vital Signs Temperature 98.2 F 05/01/18 09:00 Pulse Rate 62 05/01/18 09:00 Respiratory Rate 14 05/01/18 09:00 Blood Pressure 154/68 05/01/18 09:00 O2 Sat by Pulse Oximetry (%) 97 04/30/18 22:00 Constitutional: Yes: Calm Eyes: Yes: Conjunctiva Clear HENT: Yes: Atraumatic Neck: Yes: Supple Cardiovascular: Yes: S1, S2 Respiratory: Yes: CTA Bilaterally Gastrointestinal: Yes: Soft Genitourinary: Yes: WNL Musculoskeletal: Yes: Other (ankle pain) Edema: No Neurological: Yes: Oriented Psychiatric: Yes: Oriented Labs: CBC, BMP 04/30/18 05:30 05/01/18 05:30 INR, PTT INR 1.12 (0.82-1.09) 04/28/18 05:06 Problem List - Problems (1) Altered mental status Code(s): R41.82 - ALTERED MENTAL STATUS, UNSPECIFIED Qualifiers: Altered mental status type: unspecified Qualified Code(s): R41.82 - Altered mental status, unspecified (2) HTN (hypertension) Code(s): I10 - ESSENTIAL (PRIMARY) HYPERTENSION Qualifiers: Hypertension type: essential hypertension Qualified Code(s): I10 - Essential (primary) hypertension (3) Seizure Code(s): R56.9 - UNSPECIFIED CONVULSIONS Assessment/Plan Current Medications Generic Name Dose Route Start Last Admin Trade Name Talita PRN Reason Stop Dose Admin Acetaminophen 1,000 mg 04/28/18 13:51 04/30/18 06:33 Ofirmev Injection - IVPB 1,000 mg Q6H PRN Administration PAIN OR FEVER Acetaminophen 650 mg 04/29/18 14:01 04/30/18 21:56 Tylenol - PO 650 mg Q6H PRN Administration PAIN OR FEVER Amlodipine Besylate 10 mg 04/28/18 10:20 05/01/18 09:50 Norvasc - PO 10 mg DAILY [facility] Administration Cyanocobalamin 1,000 mcg 04/30/18 10:00 05/01/18 09:49 Vitamin B12 - PO 1,000 mcg DAILY [facility] Administration Docusate Sodium 100 mg 04/30/18 14:00 05/01/18 06:34 Colace - PO 100 mg TID [facility] Administration Ezetimibe 10 mg 04/28/18 10:00 05/01/18 09:50 Zetia - PO 10 mg DAILY [facility] Administration Heparin Sodium (Porcine) 5,000 unit 04/28/18 10:00 05/01/18 09:50 Heparin - SQ 5,000 unit BID [facility] Administration Lacosamide 50 mg 04/29/18 22:00 05/01/18 09:50 Vimpat - PO 05/09/18 22:01 50 mg BID [facility] Administration Levothyroxine Sodium 50 mcg 04/28/18 10:00 05/01/18 06:34 Synthroid - PO 50 mcg AM [facility] Administration Lisinopril 40 mg 04/30/18 11:15 05/01/18 09:50 Prinivil PO 40 mg DAILY [facility] Administration Metoprolol Tartrate 5 mg 04/28/18 13:30 04/30/18 13:22 Lopressor Injection - IVPUSH 5 mg Q4H PRN Administration HYPERTENSION Metoprolol Tartrate 50 mg 04/30/18 11:15 05/01/18 09:50 Lopressor - PO 50 mg BID [facility] Administration Ondansetron HCl 4 mg 04/29/18 11:48 05/01/18 02:44 Zofran Injection IVPUSH 4 mg Q6H PRN Administration NAUSEA Rosuvastatin Calcium 10 mg 04/28/18 10:00 05/01/18 09:50 Crestor - PO 10 mg DAILY [facility] Administration Sodium Chloride 1 gm 04/30/18 14:30 05/01/18 09:50 Sodium Chloride Tablet - PO 1 gm BID [facility] Administration Impression 1. hyponatremia 2. epilepsy 3. HTN 4. altered mental status 5. hypothyroidism 6. HLD Plan - sodium is improved - cont salt tab - restrict free water - age appropriate screening - will follow pt - cont to monitor sodium Dr Cho
[2018-05-01] MEDS: ACETAMINOPHEN 325 MG TABLET (FP) PO PRN (15:44)
--- NOTE | 2018-05-01 18:55 | CON.PSY ---
Psychiatry Consult Chief Complaint: Asked to see this patient, a 77 year old female to assist with her anxiety state. History of Present Problem: Patient medical records seen and reviewed Meds reviewed Hx obtained from patient. Son and home health aide gave collateral information. Patient states that she has been anxious ' all her life' and she is more anxious now with this current hospitalization. She becomes anxious, she states, when tests are done and she has to wait for results etc. About 3 months ago she was seen by a psychiatrist who gave her low dose zoloft which she never took ( home care nurse and son attested to that as well) The medication made her nervous and she thought that the psychiatric did not look at her but instead was too busy writing in the computer. She never went back. Patient denies a level of anxiety which disrupts her life. Symptoms: reports: Anxiety - Current Medications Current Medications: Active Medications Acetaminophen (Tylenol -) 650 mg PO Q6H PRN PRN Reason: PAIN OR FEVER Last Admin: 05/01/18 15:44 Dose: 650 mg Amlodipine Besylate (Norvasc -) 10 mg PO DAILY [facility] Last Admin: 05/01/18 09:50 Dose: 10 mg Cyanocobalamin (Vitamin B12 -) 1,000 mcg PO DAILY [facility] Last Admin: 05/01/18 09:49 Dose: 1,000 mcg Docusate Sodium (Colace -) 100 mg PO TID [facility] Last Admin: 05/01/18 15:00 Dose: Not Given Ezetimibe (Zetia -) 10 mg PO DAILY [facility] Last Admin: 05/01/18 09:50 Dose: 10 mg Heparin Sodium (Porcine) (Heparin -) 5,000 unit SQ BID [facility] Last Admin: 05/01/18 09:50 Dose: 5,000 unit Lacosamide (Vimpat -) 50 mg PO BID [facility] Stop: 05/09/18 22:01 Last Admin: 05/01/18 09:50 Dose: 50 mg Levothyroxine Sodium (Synthroid -) 50 mcg PO AM [facility] Last Admin: 05/01/18 06:34 Dose: 50 mcg Lisinopril (Prinivil) 40 mg PO DAILY [facility] Last Admin: 05/01/18 09:50 Dose: 40 mg Metoprolol Tartrate (Lopressor Injection -) 5 mg IVPUSH Q4H PRN PRN Reason: HYPERTENSION Last Admin: 04/30/18 13:22 Dose: 5 mg Metoprolol Tartrate (Lopressor -) 50 mg PO BID [facility] Last Admin: 05/01/18 09:50 Dose: 50 mg Ondansetron HCl (Zofran Injection) 4 mg IVPUSH Q6H PRN PRN Reason: NAUSEA Last Admin: 05/01/18 02:44 Dose: 4 mg Rosuvastatin Calcium (Crestor -) 10 mg PO DAILY [facility] Last Admin: 05/01/18 09:50 Dose: 10 mg Sodium Chloride (Sodium Chloride Tablet -) 1 gm PO BID [facility] Last Admin: 05/01/18 09:50 Dose: 1 gm - Allergies Allergies: Allergies Allergy/AdvReac Type Severity Reaction Status Date / Time No Known Allergies Allergy Verified 04/28/18 05:27 - Current Living Status Usual Living Arrangement: With Child (with grown son and a 24 hr route aide) - Current Mental Status Evaluation Appearance: Well Groomed - Psychomotor Activity Psychomotor Activity: Normal - Thought Content Hallucinations: Absent Delusions: Absent - Self Perception Self Perception: No Impairment - Cognition Attention: Alert Orientation: Time, Person, Place - Abstraction Proverb Interpretation: Intact Judgement: Intact - Insight Insight: Intact - Suicidal Ideation Suicidal Ideation: No - Homicidal Ideation Homicidal Ideation: No Assessment/Plan Anxiety Zoloft was ordered by previous psychiatrist which she did not take Patient is not willing to take any meds States that she is OK" Expressed a desire to go home No meds at this time If she agrees, consider low dose buspar 10 mgs bid Dorinda KEARNS
[2018-05-01] MEDS ORDERED: PT OWN MED DRAWER 7, Y5N ONE (22:20)
[2018-05-02] MEDS: ACETAMINOPHEN 325 MG TABLET (FP) PO PRN ×2 (01:16→10:27)
[2018-05-02] MEDS: DOCUSATE SODIUM 100 MG CAPSULE (FP) PO SCH (06:18)
[2018-05-02] MEDS: LEVOTHYROXINE NA 50 MCG TABLET (FP) PO SCH (06:19)
[2018-05-02 06:31] VITALS: TEMP 98.2
[2018-05-02 08:23] LABS: CHLORIDE 95 mmol/L (98-107); POTASSIUM 3.6 mmol/L (3.5-5.1); SODIUM 132 mmol/L (136-145)
[2018-05-02 08:29] LABS: ANION GAP 6 (8-16); BLOOD UREA NITROGEN 13 mg/dL (7-18); CO2 31 mmol/L (21-32); CREATININE 0.5 mg/dL (0.55-1.02); GLUCOSE,RANDOM 107 mg/dL (74-106)
--- NOTE | 2018-05-02 09:15 | CON.NEURO ---
Consult - History of Present Illness History of Present Illness: psych note reviewed-she defers RX anxious to go home, no new issues or seizures - Past Medical History [employer]: Yes: Other (Cerebral aneurysm, s/p surgery. 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 [employer] History of Recent Travel: No Home Medications - Allergies Allergies/Adverse Reactions: Allergies Allergy/AdvReac Type Severity Reaction Status Date / Time No Known Allergies Allergy Verified 04/28/18 05:27 - Home Medications Home Medications: Ambulatory Orders Levothyroxine [Synthroid -] 50 mcg PO DAILY 04/19/14 Amlodipine Besylate [Norvasc -] 10 mg PO DAILY 02/23/17 Lisinopril [Prinivil] 20 mg PO DAILY [facility] 1 06/13/17 Rosuvastatin Calcium [Crestor] 10 mg PO DAILY 06/13/17 Ezetimibe 10 mg PO DAILY 04/22/18 Levetiracetam [Keppra] 600 mg PO BID 04/22/18 Oxcarbazepine [Trileptal -] 600 mg PO BID #28 tablet 04/22/18 Sertraline HCl [Zoloft] 25 mg PO DAILY 04/22/18 Family Disease History - Family Disease History Family Disease History: Other: Father ( 70: unclear cause), Mother ( 66 : [place]), Brother (3 bros: , no cancer), Sister (3 sis: , no cancer), Son ( 1 son: healthy) Physical Exam-Neuro Vital Signs: Vital Signs Temperature 98.2 F 05/02/18 06:00 Pulse Rate 59 L 05/02/18 06:00 Respiratory Rate 18 05/02/18 06:00 Blood Pressure 180/70 05/02/18 06:00 O2 Sat by Pulse Oximetry (%) 97 05/01/18 22:00 Labs: CBC, BMP 04/30/18 05:30 05/02/18 07:00 INR, PTT INR 1.12 (0.82-1.09) 04/28/18 05:06 Problem List - Problems (1) Drug side effects Code(s): T88.7XXA - UNSP ADVERSE EFFECT OF DRUG OR MEDICAMENT, INIT ENCNTR (2) Altered mental status Code(s): R41.82 - ALTERED MENTAL STATUS, UNSPECIFIED Qualifiers: Altered mental status type: unspecified Qualified Code(s): R41.82 - Altered mental status, unspecified (3) Seizure Code(s): R56.9 - UNSPECIFIED CONVULSIONS (4) Cerebrovascular accident (CVA) Code(s): I63.9 - CEREBRAL INFARCTION, UNSPECIFIED Qualifiers: CVA mechanism: other Qualified Code(s): I63.8 - Other cerebral infarction
--- NOTE | 2018-05-02 09:17 | PN ---
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 now comes in for altered mental state, hyponatremia and uncontrolled hypertension. CT HEAD No intracranial hemorrhage is seen. There has been no definite interval change in comparison to prior CT exams of 04/22/2018, 06/13/2017 and 05/21/2017. Status post right temporoparietal craniotomy. No acute infarct is identified within the limitations of CT. Chronic right frontal cortical/subcortical infarct laterally at the high convexity level. Chronic right temporal cortical infarct laterally. No obstructive hydrocephalus is seen. There is no extra-axial fluid collection. No gross mass lesion is identified noncontrast imaging. Impression: No definite interval change is seen as discussed above. FU : awake and alert this AM started VIMPAT -no issues thus far gets anxious and makes BP go higher suspect NA improving - Current Medication List Current Medications: Active Medications Acetaminophen (Ofirmev Injection -) 1,000 mg IVPB Q6H PRN PRN Reason: PAIN OR FEVER Last Admin: 04/28/18 14:01 Dose: 1,000 mg Acetaminophen (Tylenol -) 650 mg PO Q6H PRN PRN Reason: PAIN OR FEVER Last Admin: 04/29/18 14:04 Dose: 650 mg Amlodipine Besylate (Norvasc -) 10 mg PO DAILY [facility] Last Admin: 04/29/18 09:33 Dose: 10 mg Ezetimibe (Zetia -) 10 mg PO DAILY [facility] Last Admin: 04/29/18 09:33 Dose: 10 mg Heparin Sodium (Porcine) (Heparin -) 5,000 unit SQ BID [facility] Last Admin: 04/29/18 09:32 Dose: 5,000 unit Sodium Chloride (Normal Saline -) 1,000 mls @ 42 mls/hr IV ASDIR [facility] Last Admin: 04/29/18 06:21 Dose: 42 mls/hr Levetiracetam (Keppra Injection -) 1,000 mg IVPB BID [facility] Last Admin: 04/29/18 09:32 Dose: 1,000 mg Levothyroxine Sodium (Synthroid -) 50 mcg PO AM [facility] Last Admin: 04/29/18 06:20 Dose: 50 mcg Lisinopril (Prinivil) 20 mg PO DAILY [facility] Last Admin: 04/29/18 09:33 Dose: 20 mg Metoprolol Tartrate (Lopressor -) 25 mg PO BID [facility] Last Admin: 04/29/18 09:32 Dose: 25 mg Metoprolol Tartrate (Lopressor Injection -) 5 mg IVPUSH Q4H PRN PRN Reason: HYPERTENSION Last Admin: 04/28/18 18:28 Dose: 5 mg Ondansetron HCl (Zofran Injection) 4 mg IVPUSH Q6H PRN PRN Reason: NAUSEA Last Admin: 04/29/18 11:55 Dose: 4 mg Oxcarbazepine (Trileptal -) 600 mg PO BID [facility] Last Admin: 04/29/18 09:33 Dose: 600 mg Rosuvastatin Calcium (Crestor -) 10 mg PO DAILY [facility] Last Admin: 04/29/18 09:32 Dose: 10 mg Sertraline HCl (Zoloft -) 25 mg PO DAILY [facility] Last Admin: 04/29/18 09:34 Dose: 25 mg - Objective Vital Signs: Vital Signs Temperature 98.2 F 05/02/18 06:00 Pulse Rate 59 L 05/02/18 06:00 Respiratory Rate 18 05/02/18 06:00 Blood Pressure 180/70 05/02/18 06:00 O2 Sat by Pulse Oximetry (%) 97 05/01/18 22:00 Neurological: Yes: Alert (left hemipresis residual) Labs: CBCD WBC 3.9 K/mm3 (4.0-10.0) L 04/30/18 05:30 RBC 3.72 M/mm3 (3.60-5.2) 04/30/18 05:30 Hgb 11.3 GM/dL (10.7-15.3) 04/30/18 05:30 Hct 31.0 % (32.4-45.2) L 04/30/18 05:30 MCV 83.3 fl (80-96) 04/30/18 05:30 MCHC 36.4 g/dl (32.0-36.0) H 04/30/18 05:30 RDW 12.5 % (11.6-15.6) 04/30/18 05:30 Plt Count 184 K/MM3 (134-434) D 04/30/18 05:30 MPV 7.1 fl (7.5-11.1) L 04/30/18 05:30 CMP Sodium 132 mmol/L (136-145) L 05/02/18 07:00 Potassium 3.6 mmol/L (3.5-5.1) 05/02/18 07:00 Chloride 95 mmol/L (98-107) L 05/02/18 07:00 Carbon Dioxide 31 mmol/L (21-32) 05/02/18 07:00 Anion Gap 6 (8-16) L 05/02/18 07:00 BUN 13 mg/dL (7-18) 05/02/18 07:00 Creatinine 0.5 mg/dL (0.55-1.02) L 05/02/18 07:00 Creat Clearance w eGFR > 60 (>60) 05/02/18 07:00 Calcium 9.0 mg/dL (8.5-10.1) 05/02/18 07:00 Total Bilirubin 0.4 mg/dL (0.2-1.0) 05/01/18 05:30 AST 24 U/L (15-37) 05/01/18 05:30 ALT 37 U/L (12-78) 05/01/18 05:30 Alkaline Phosphatase 148 U/L (45-117) H D 05/01/18 05:30 Total Protein 6.2 g/dl (6.4-8.2) L 05/01/18 05:30 Albumin 3.7 g/dl (3.4-5.0) 05/01/18 05:30 Problem List - Problems (1) Drug side effects Code(s): T88.7XXA - UNSP ADVERSE EFFECT OF DRUG OR MEDICAMENT, INIT ENCNTR (2) Altered mental status Code(s): R41.82 - ALTERED MENTAL STATUS, UNSPECIFIED (3) Seizure Code(s): R56.9 - UNSPECIFIED CONVULSIONS (4) Cerebrovascular accident (CVA) Code(s): I63.9 - CEREBRAL INFARCTION, UNSPECIFIED Qualifiers: CVA mechanism: other Qualified Code(s): I63.8 - Other cerebral infarction Assessment/Plan pt known to me , hx of S/p hemorrhagic stroke with residual left hemiparesis; seen last by me in office on 04/11/18 was on Keppra for seizures but there was a question of GI upset and RX was changed to TRILEPTAL -couple weeks back. now comes in for altered mental state, hyponatremia and uncontrolled hypertension. CT HEAD no acute changes DC TRILEPTAL (known to cause hyponatremia/ ? rxn with zoloft) she has had GI issues with Keppra--DC'ed defers psych RX cont VIMPAT 50BID FU NA , BP FU-- perhaps to consider inc B BETA [place]-spoke to DR SALOME cruz B12 neurowise stable and can FU outpt DR CARDONA [phone] Problem List - Problems (1) Drug side effects Code(s): T88.7XXA - UNSP ADVERSE EFFECT OF DRUG OR MEDICAMENT, INIT ENCNTR (2) Altered mental status Code(s): R41.82 - ALTERED MENTAL STATUS, UNSPECIFIED Qualifiers: Altered mental status type: unspecified Qualified Code(s): R41.82 - Altered mental status, unspecified (3) Seizure Code(s): R56.9 - UNSPECIFIED CONVULSIONS (4) Cerebrovascular accident (CVA) Code(s): I63.9 - CEREBRAL INFARCTION, UNSPECIFIED Qualifiers: CVA mechanism: other Qualified Code(s): I63.8 - Other cerebral infarction
[2018-05-02 09:19] VITALS: BP 164/74; PULSE 60
--- NOTE | 2018-05-02 09:26 | PN ---
Progress Note, Physician History of Present Illness: Sensorium and hyponatremia improving. Very anxious, labile hypertension. - Current Medication List Current Medications: Active Medications Acetaminophen (Tylenol -) 650 mg PO Q6H PRN PRN Reason: PAIN OR FEVER Last Admin: 05/02/18 01:16 Dose: 650 mg Amlodipine Besylate (Norvasc -) 10 mg PO DAILY [facility] Last Admin: 05/01/18 09:50 Dose: 10 mg Cyanocobalamin (Vitamin B12 -) 1,000 mcg PO DAILY [facility] Last Admin: 05/01/18 09:49 Dose: 1,000 mcg Docusate Sodium (Colace -) 100 mg PO TID [facility] Last Admin: 05/02/18 06:18 Dose: 100 mg Ezetimibe (Zetia -) 10 mg PO DAILY [facility] Last Admin: 05/01/18 09:50 Dose: 10 mg Heparin Sodium (Porcine) (Heparin -) 5,000 unit SQ BID [facility] Last Admin: 05/01/18 22:17 Dose: 5,000 unit Lacosamide (Vimpat -) 50 mg PO BID [facility] Stop: 05/09/18 22:01 Last Admin: 05/01/18 22:17 Dose: 50 mg Levothyroxine Sodium (Synthroid -) 50 mcg PO AM [facility] Last Admin: 05/02/18 06:19 Dose: 50 mcg Lisinopril (Prinivil) 40 mg PO DAILY [facility] Last Admin: 05/01/18 09:50 Dose: 40 mg Metoprolol Tartrate (Lopressor Injection -) 5 mg IVPUSH Q4H PRN PRN Reason: HYPERTENSION Last Admin: 04/30/18 13:22 Dose: 5 mg Metoprolol Tartrate (Lopressor -) 50 mg PO BID [facility] Last Admin: 05/01/18 22:17 Dose: 50 mg Ondansetron HCl (Zofran Injection) 4 mg IVPUSH Q6H PRN PRN Reason: NAUSEA Last Admin: 05/01/18 02:44 Dose: 4 mg Rosuvastatin Calcium (Crestor -) 10 mg PO DAILY [facility] Last Admin: 05/01/18 09:50 Dose: 10 mg Sodium Chloride (Sodium Chloride Tablet -) 1 gm PO BID [facility] Last Admin: 05/01/18 22:18 Dose: 1 gm - Objective Vital Signs: Vital Signs Temperature 98.2 F 05/02/18 09:00 Pulse Rate 60 05/02/18 09:00 Respiratory Rate 14 05/02/18 09:00 Blood Pressure 164/74 05/02/18 09:00 O2 Sat by Pulse Oximetry (%) 97 05/01/18 22:00 Constitutional: Yes: No Distress, Calm, Thin Neck: Yes: Supple Cardiovascular: Yes: Regular Rate and Rhythm Respiratory: Yes: Regular, CTA Bilaterally Gastrointestinal: Yes: Normal Bowel Sounds, Soft Edema: No Labs: CBC, BMP 04/30/18 05:30 05/02/18 07:00 INR, PTT INR 1.12 (0.82-1.09) 04/28/18 05:06 Problem List - Problems (1) Altered mental status Code(s): R41.82 - ALTERED MENTAL STATUS, UNSPECIFIED Qualifiers: Altered mental status type: unspecified Qualified Code(s): R41.82 - Altered mental status, unspecified (2) HTN (hypertension) Code(s): I10 - ESSENTIAL (PRIMARY) HYPERTENSION Qualifiers: Hypertension type: essential hypertension Qualified Code(s): I10 - Essential (primary) hypertension (3) Cerebrovascular accident (CVA) Code(s): I63.9 - CEREBRAL INFARCTION, UNSPECIFIED Qualifiers: CVA mechanism: other Qualified Code(s): I63.8 - Other cerebral infarction (4) HLD (hyperlipidemia) Code(s): E78.5 - HYPERLIPIDEMIA, UNSPECIFIED Qualifiers: Hyperlipidemia type: pure hypercholesterolemia Qualified Code(s): E78.00 - Pure hypercholesterolemia, unspecified (5) Hyponatremia Code(s): E87.1 - HYPO-OSMOLALITY AND HYPONATREMIA (6) Hypothyroid Code(s): E03.9 - HYPOTHYROIDISM, UNSPECIFIED Qualifiers: Hypothyroidism type: unspecified Qualified Code(s): E03.9 - Hypothyroidism , unspecified (7) Labile hypertension Code(s): I10 - ESSENTIAL (PRIMARY) HYPERTENSION (8) Seizure disorder Code(s): G40.909 - EPILEPSY, UNSP, NOT INTRACTABLE, WITHOUT STATUS EPILEPTICUS Assessment/Plan 1. Altered mental status, etiology to be determined 2. Hyponatremia improving on NaCl 3. Labile hypertension/hypertensive cardiovascular disease, history of dysautonomia 4. History of atypical chest pain syndrome 5. Hyperlipidemia/hypercholesterolemia 6. History of ICH, hemorrhagic stroke with residual left hemiparesis 7. Seizure disorder 8. Hypothyroidism 9. History of left hip hemiarthroplasty for left displaced femoral neck fracture 10. Neutropenia and anemia PLAN: 1. Change Lopressor to carvedilol 6.25 bid and titrate dosage 2. Continue Norvasc 10 qd 3. Continue Lisinopril 40 qd and titrate dosage 4. Continue Crestor 10 qd and Zetia 10 qd, resume [id number] as outpatient 5. Antiseizure meds per neuro 6. DVT prophylaxis
[2018-05-02] MEDS ORDERED: PT OWN MED DRAWER 7, Y5N ONE (09:56)
[2018-05-02] MEDS ORDERED: CARVEDILOL 6.25 MG TABLET (FP) PO SCH (10:15)
[2018-05-02] MEDS: HEPARIN NA (PORCINE) 5,000 UNITS/ML 1ML VIAL SQ SCH (10:27)
[2018-05-02] MEDS: ROSUVASTATIN CA 10 MG TABLET (FP) PO SCH (10:28)
[2018-05-02] MEDS: CYANOCOBALAMIN 1,000 MCG TABLET (FP) PO SCH (10:28)
[2018-05-02] MEDS: LACOSAMIDE 50 MG TABLET PO SCH (10:28)
[2018-05-02] MEDS: LISINOPRIL 20 MG TABLET (FP) PO SCH (10:28)
[2018-05-02] MEDS: amLODIPine BESYLATE 10 MG TABLET (FP) PO SCH (10:28)
[2018-05-02] MEDS: EZETIMIBE 10 MG TABLET (FP) PO SCH (10:28)
[2018-05-02] MEDS: SODIUM CHLORIDE 1 GM TABLET PO SCH (10:28)
--- NOTE | 2018-05-02 10:47 | DS ---
Physical Examination Vital Signs: Vital Signs Temperature 98.2 F 05/02/18 09:00 Pulse Rate 60 05/02/18 09:00 Respiratory Rate 14 05/02/18 09:00 Blood Pressure 164/74 05/02/18 09:00 O2 Sat by Pulse Oximetry (%) 97 05/01/18 22:00 Constitutional: Yes: Mild Distress Eyes: Yes: WNL HENT: Yes: WNL Neck: Yes: WNL Cardiovascular: Yes: WNL Respiratory: Yes: WNL Gastrointestinal: Yes: WNL Renal/: Yes: WNL Musculoskeletal: Yes: Muscle Weakness Extremities: Yes: WNL Edema: No Peripheral Pulses WNL: Yes Integumentary: Yes: WNL Wound/Incision: Yes: Clean/Dry Neurological: Yes: Pre-Existing Deficit ...Motor Strength: LLE Psychiatric: Yes: Agitated, Other Labs: CBC, BMP 04/30/18 05:30 05/02/18 07:00 Discharge Summary Reason For Visit: AMS SEIZURE Current Active Problems Altered mental status (Acute) Drug side effects (Acute) HTN (hypertension) (Acute) Seizure (Acute) Procedures: Principal: XRAYS/CT SCANS Hospital Course: ADMITTED AND WORKED UP ON ICU/TELE, CARDIAC CLEARANCE AND PSYCH EVAL. HYPONATEREMIA IMPROVED, ON VIMPAT NOW Condition: Guarded - Instructions Diet, Activity, Other Instructions: REG DIET RESTART ZOLOFT IN 1 WEEK SEE YOUR DOCTOR IN 1 WEEK FOR LABS AND FOLLOW UP NEUROLOGY DR BECKETT IN 1 WEEK Disposition: VNS/HOME HEALTH CARE - Home Medications Comprehensive Discharge Medication List: Ambulatory Orders Levothyroxine [Synthroid -] 50 mcg PO DAILY 04/19/14 Lisinopril [Prinivil] 20 mg PO DAILY [facility] 1 06/13/17 Rosuvastatin Calcium [Crestor] 10 mg PO DAILY 06/13/17 Ezetimibe 10 mg PO DAILY 04/22/18 Levetiracetam [Keppra] 600 mg PO BID 04/22/18 Oxcarbazepine [Trileptal -] 600 mg PO BID #28 tablet 04/22/18 Acetaminophen [Tylenol .Regular Strength -] 650 mg PO Q6H PRN tablet 05/02/18 Amlodipine Besylate [Norvasc -] 10 mg PO DAILY #30 tablet 05/02/18 Carvedilol [Coreg -] 6.25 mg PO BID #60 tablet 05/02/18 Docusate Sodium [Colace -] 100 mg PO TID #30 capsule 05/02/18 Lacosamide [Vimpat -] 50 mg PO BID #60 tab MDD 2 05/02/18 Sodium Chloride Tablet - 1 gm PO BID #60 tablet 05/02/18
== END 2018-05-02 13:19 | disposition home health service (06) | DRG 644 ==
LOC: JER 04:47 → JERBED 06:05 → J2W 12:22 → J4W 04-30 18:46
PROVIDERS: ADMIT Internal Medicine; ATTEND Family Medicine
DX: E22.2 Syndrome of inappropriate secretion of antidiuretic hormone (principal); E87.1 Hypo-osmolality and hyponatremia; I69.354 Hemiplegia and hemiparesis following cerebral infarction affecting left non-dominant side; R41.82 Altered mental status, unspecified; G40.909 Epilepsy, unspecified, not intractable, without status epilepticus; Z66 Do not resuscitate; E03.9 Hypothyroidism, unspecified; I10 Essential (primary) hypertension; E78.5 Hyperlipidemia, unspecified; F41.9 Anxiety disorder, unspecified; D64.9 Anemia, unspecified; F32.9 Major depressive disorder, single episode, unspecified; T42.1X5A Adverse effect of iminostilbenes, initial encounter
CPT/HCPCS: 36415; 70450-TC; 73590-TC-LT-FY; 73610-TC-LT-FY; 80048; 80053; 81003; 82436; 82465; 82533; 82550; 82607; 82962; 83718; 83721; 83930; 83935; 84133; 84300; 84439; 84443; 84478; 84484; 85025; 85610; 86850; 86900; 86901; 87086; 87186; 93005; 93010; 97116-GP; 97161-GP; 99285-25; J0131; J1644; J7030

== ENCOUNTER 2019-04-08 21:23 | Emergency (ER) | payer OTHER, MEDICARE ==
[2019-04-08 21:41] VITALS: BP 196/65; PULSE 71; TEMP 97.2; BMI 18.8
--- NOTE | 2019-04-08 21:55 | PDOC ---
History of Present Illness - General Chief Complaint: Pain Stated Complaint: Abdominal pain Time Seen by Provider: 04/08/19 21:37 - History of Present Illness Initial Comments: Ritika Ruggiero is a 78yo woman with a PMH of CVA w/ residual left-sided weakness, HTN, HLD, seizures, hypothyroidism who presents by ambulance for abdominal pain, bowel urgency, and now poor responsiveness. The patient is currently not verbally communicating. Her [facility] aide is at bedside, and she reports that Ms Ruggiero was complaining of abdominal pain and had been stating frequently that she needed to have a bowel movement, but she had very small stools. The aide is not sure when she stopped speaking, but she states that the patient appeared to be more and more uncomfortable. She was noted to have RUE shaking on arrival to the ED, but it is unclear whether this is typical of her previous seizures. Past History - Past Medical History Allergies/Adverse Reactions: Allergies Allergy/AdvReac Type Severity Reaction Status Date / Time No Known Allergies Allergy Verified 04/08/19 21:41 Home Medications: Ambulatory Orders Levothyroxine [Synthroid -] 50 mcg PO DAILY 04/19/14 Lisinopril [Prinivil] 20 mg PO DAILY MDD 1 06/13/17 Rosuvastatin Calcium [Crestor] 10 mg PO DAILY 06/13/17 Ezetimibe 10 mg PO DAILY 04/22/18 Acetaminophen [Tylenol .Regular Strength -] 650 mg PO Q6H PRN tablet 05/02/18 Amlodipine Besylate [Norvasc -] 10 mg PO DAILY #30 tablet 05/02/18 Carvedilol [Coreg -] 6.25 mg PO BID #60 tablet 05/02/18 Docusate Sodium [Colace -] 100 mg PO TID #30 capsule 05/02/18 Lacosamide [Vimpat -] 100 mg PO BID #60 tab MDD 4 05/21/18 Phenytoin Na Extended [Dilantin -] 100 mg PO BID #60 capsule 05/21/18 Phenytoin [Dilantin Chewable Tablet -] 50 mg PO HS #30 tab.chew 05/21/18 Cardiac Disorders: Yes CVA: Yes (brain aneurysm/ lt sided weakness) COPD: No CHF: No DVT: No Dementia: No Diabetes: No GI Disorders: No Disorders: No HTN: Yes Hypercholesterolemia: Yes Liver Disease: No Seizures: Yes Thyroid Disease: Yes (hypo) - Surgical History Neurologic Surgery: Yes (aneurysm repair) - Immunization History Immunization Up to Date: Yes - Suicide/Smoking/Psychosocial Hx Smoking History: Never smoked Have you smoked in the past 12 months: No Hx Alcohol Use: No Drug/Substance Use Hx: No Substance Use Type: None Hx Substance Use Treatment: No Review of Systems - Review of Systems Comments:: Could not obtain, pt not speaking *Physical Exam - Vital Signs Last Vital Signs Temp Pulse Resp BP Pulse Ox 97.2 F L 71 19 196/65 H 99 04/08/19 21:23 04/08/19 21:23 04/08/19 21:23 04/08/19 21:23 04/08/19 21:23 - Physical Exam Comments: General: Appears uncomfortable HEENT: PERRL, MMM, voice normal, normal neck ROM, no LAD Cards: RRR, no murmur appreciated Pulm: Comfortable on room air, clear to auscultation bilaterally Abd: Soft, nontender, nondistended Ext: Shaking/trembling of RUE. No LE edema. LUE and LLE weakness, appears to have L foot drop Vasc: Extremities WWP Skin: Normal color, no rashes or lesions Neuro: Moaning, unresponsive to stimuli, will not open eyes, CN grossly intact ED Treatment Course - RADIOLOGY Radiology Studies Ordered: Category Date Time Status CHEST X-RAY PORTABLE* [RAD] Stat Radiology 04/08/19 21:48 Ordered Medical Decision Making - Medical Decision Making 04/08/19 21:50 Ritika Ruggiero is a 78yo woman with a PMH of CVA w/ residual left-sided weakness, HTN, HLD, seizures, hypothyroidism who presents by ambulance for abdominal pain, bowel urgency, and now poor responsiveness. Ms Ruggiero is moaning and minimally responsive on arrival, noted to have RUE shaking. - Possible seizure now postictal, gastritis vs gastroenteritis vs colitis, possible unknown intra-abdominal pathology - CBC, CMP, trop, EKG, CXR, lactate 04/08/19 22:18 - Patient now verbalizing repeatedly that she wants to go home. Asked what is bothering her, she points to her epigastrium and throat but is unable to clarify what the problem is - The aide additionally states that she has had excessive burping today - Advised pt and family that her symptoms should be evaluated. Cannot rule out ACS w/ symptoms of epigastric pain, burping, and possible neck pain 04/08/19 22:34 - Pt now awake, responsive - States that she has felt like there is something in her throat for about 4 days[address] Plans to see Dr Chun - Says she only has epigastric pain when she pushes in that area; no pain without palpation - Adamant that she does not want any workup. Understands that she could be having symptoms from an acute cardiac abnormality. Says she will see her regular doctors tomorrow. - Will AMA Seen with Dr Paz. Joanne Ho PGY2 *DC/Admit/Observation/Transfer Diagnosis at time of Disposition: Epigastric pain Altered mental state Qualifiers: Altered mental status type: transient alteration of awareness Qualified Code(s) : R40.4 - Transient alteration of awareness - Discharge Dispostion Disposition: AGAINST MEDICAL ADVICE Condition at time of disposition: Fair - Referrals Referrals: Jackson Valencia MD, MD [Primary Care Provider] - Zurdo Gonzalez MD [Staff Physician] - - Patient Instructions Printed Discharge Instructions: DI for Epigastric Pain Additional Instructions: Discharge Instructions: - You were seen in the ED for abdominal pain and poor responsiveness. When you arrived, you were not able to answer any questions - You later declined any labs or workup and left against medical advice - Please call to make an appointment with your regular doctor tomorrow. It is very important that you are evaluated as soon as possible. You should also call to schedule an appointment with cardiology. If you need a director process, you have been given contact information for Dr Barnes. You should be seen by cardiology within the next 1-2 days. - Seek immediate care at the closest emergency department if you have worsening symptoms, chest pain, difficulty breathing, pain that radiates to the neck or jaw, chest pain with sweating or lightheadedness, blood in your stool, are unable to tolerate food or liquids, or you have any other medical emergency. - Post Discharge Activity
--- NOTE | 2019-04-08 23:16 | PDOC ---
Documentation entered by Yuri Maciel SCRIBE, acting as scribe for Adina Paz MD. Adina Paz MD: This documentation has been prepared by the scribe, Yuri Maciel SCRIBE, under my direction and personally reviewed by me in its entirety. I confirm that the documentation accurately reflects all work, treatment, procedures, and medical decision making performed by me. Attending Attestation - Resident Resident Name: Joanne Ho - ED Attending Attestation I have performed the following: I have examined & evaluated the patient, The case was reviewed & discussed with the resident, I agree w/resident's findings & plan, Exceptions are as noted - HPI HPI: 04/08/19 22:15 78-year-old female brought in by ambulance from home for abdominal pain. The patient was nonverbal upon arrival, but accompanied by the aide and her son arrived. Patient is status post a stroke in the past and has residual left-sided weakness. She does have a history of seizures also. On exam her vital signs show some hypertension, but she is 100% on room air and has a normal heart rate 04/08/19 22:22 - Physicial Exam PE: 04/08/19 22:17 78-year-old female presents appearing agitated with some right arm tremors. Head normocephalic with no evidence of recent hematomas, abrasions. Eyes pupils are reactive to light. Neck supple Lungs no wheezing or Rales CVS regular rate and rhythm S1, S2 Abdomen abdomen is soft but she appears uncomfortable when abd is palpated Skin warm and dry. 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
[2019-04-09] MEDS ORDERED: CARVEDILOL 6.25 MG TABLET (FP) PO ONE (01:48)
[2019-04-09] MEDS ORDERED: amLODIPine BESYLATE 5 MG TABLET (FP) ONE (01:49)
[2019-04-09] MEDS ORDERED: amLODIPine BESYLATE 5 MG TABLET (FP) PO ONE (01:51)
--- NOTE | 2019-04-09 08:31 | EKG ---
Test Reason : Blood Pressure : / mmHG Vent. Rate : 061 BPM Atrial Rate : 061 BPM P-R Int : 186 ms QRS Dur : 090 ms QT Int : 424 ms P-R-T Axes : 057 -11 069 degrees QTc Int : 426 ms NORMAL SINUS RHYTHM NORMAL ECG WHEN COMPARED WITH ECG OF 18-MAY-2018 14:17, NO SIGNIFICANT CHANGE WAS FOUND Confirmed by MILTON RICARDO, GAURAV ([id number]) on 04/09/2019 8:31:13 AM Referred By: Confirmed By:GAURAV ROSE MD
== END 2019-04-09 01:56 | disposition left against medical advice (07) ==
LOC: JER 21:23
DX: R40.4 Transient alteration of awareness (principal); R10.13 Epigastric pain
CPT/HCPCS: 71045-TC-FY; 93005; 93010; 99281-25